=== PATIENT | female | born 1965 | race Caucasian/White ===

== ENCOUNTER 2016-12-02 02:11 | Emergency (ER) | payer OTHER ==
[~2016-12-02] VITALS: Ht 165.1 cm; Wt 101.6 kg
[~2016-12-02 02:11] MED LIST: CZR50 PO; ESCI10TA17 PO; HYDR25TA5 PO; LORA-741 PO; MULT-884 PO; POTA20TA13 PO; TPRSR/50 PO; VITACAP37 PO; VNTHFA/IN INH
[2016-12-02 02:12] VITALS: TEMP 37; Ht 165.1 cm; Wt 101.6 kg
[2016-12-02] MEDS ORDERED: ALBUT/IPRATROP 3MG/0.5MG NEB 3 ML VIAL INH STA (02:23)
[2016-12-02] MEDS ORDERED: DEXAMETHASONE SOD INJ 10 MG/ML VIAL PO ONE (02:30)
[2016-12-02] MEDS ORDERED: TAMO20TA5 PO (03:03)
[2016-12-02] MEDS ORDERED: HYDR-3419 PO (03:04)
[2016-12-02] MEDS ORDERED: SCPTP TD (03:06)
--- NOTE | 2016-12-02 03:09 | EMERGENCY ROOM VISIT NOTE ---
History First contact with patient: 02:19 Chief Complaint: RESPIRATORY PROBLEMS Stated Complaint: BREATHING PROBLEMS History of Present Illness The patient is a 51 year old female who presents to the Emergency Room with complaints of cough and wheezing for the past few days. Patient has asthma. She tried her inhaler with no relief of symptoms. Patient's never been hospitalized or intubated for her asthma. Patient denies chest pain, fever, chills, productive cough, recent illness. Patient denies abdominal pain, vomiting, diarrhea, leg pain or swelling. She does not smoke. No recent travel. No prior heart disease. Review of Systems See HPI for pertinent positives & negatives. A total of 10 systems reviewed and were otherwise negative. 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 Asthma, hypertension Family History Hypertension Social History Smoking Status: Former Smoker Drug Use: none Occupation Status: employed Current/Historical Medications Scheduled Escitalopram (Lexapro), 10 MG PO QAM Hydrochlorothiazide (Hydrochlorothiazide), 25 MG PO QAM Losartan Potassium (Losartan Potassium), 100 MG PO QAM Metoprolol Succinate (Metoprolol Succinate ER), 3 TAB PO QAM Multiple Vitamin (Multi Vitamin Daily), 1 TAB PO QAM Potassium Chloride Microencaps (Potassium Chloride Er), 20 MEQ PO TID Tamoxifen Citrate (Nolvadex), 20 MG PO DAILY Vitamin E (E-400), 100 UNITS PO QAM Scheduled PRN Albuterol Hfa (Ventolin Hfa), 2-4 PUFFS INH Q6H PRN for SOB/Wheezing Hydrocodon/Acetaminophen 5MG/300MG (Vicodin (5MG/300MG)), 1 TAB PO Q4H PRN for Pain Lorazepam (Ativan), 0.5 MG PO DAILY PRN for Anxiety Allergies Coded Allergies: ENMANUEL Inhibitors (Verified Adverse Reaction, Unknown, COUGH, 11/08/16) Physical Exam Vital Signs Date Time Temp Pulse Resp B/P Pulse Ox O2 Delivery O2 Flow Rate FiO2 12/02/16 02:12 37.0 84 18 169/119 98 Room Air Physical Exam PHYSICAL EXAM: Vital Signs: Reviewed Nurse's notes. Hypertensive Oxygen saturation was 98% on room air. GENERAL: Pleasant female with audible wheeze, Alert, oriented and coherent. The patient is able to speak in complete sentences. NECK: Supple, non-tender. CHEST: Symmetrical expansion. no retractions no accessory muscle use. HEART: Regular rate and normal heart sounds, no murmur, gallop or rub. LUNGS: Breath sounds equal but significantly diminished in intensity on both sides. Bilateral wheezes heard but no rales or pleuritic rub. SKIN: The skin was without rashes, erythema, edema, or bruising. There is no tenting of the skin. Capillary reflex less than 2 seconds. HEAD: Normocephalic atraumatic. EARS: External auditory canals clear, tympanic membranes pearly barrios without erythema or effusion bilaterally. EYES: Pupils equal round and reactive to light and accommodation. Conjunctivae without injection, sclerae without icterus. Extraocular movements intact. NOSE: Patent, turbinates without inflammation or discharge. No sinus tenderness. MOUTH: Mucous membranes moist. Tonsils are not enlarged. Pharynx without erythema or exudate. Uvula midline. Airway patent. Tongue does not deviate. ABDOMEN: Positive bowel sounds x 4. Normal tympanic percussion. Soft, nontender, without masses or organomegaly. Gotti sign negative. No guarding or rebound tenderness. MUSCULOSKELETAL: No muscle atrophy, erythema, or edema noted. NEURO: Patient was alert and oriented to person place and time. Normal sensation to light and sharp touch. No focal neurological deficits. Medical Decision & Procedures Medications Administered Medications (Trade) Dose Ordered Sig/Samanta Route Start Time Stop Time Status Last Admin Dose Admin Albuterol/ Ipratropium (Duoneb) 3 ml NOW STAT INH 12/02/16 02:23 12/02/16 02:24 DC 12/02/16 02:30 3 ML Dexamethasone Sodium Phosphate (Decadron Inj) 10 mg NOW ONCE PO 12/02/16 02:30 12/02/16 02:31 DC 12/02/16 02:30 10 MG ED Course Prior records/ancillary studies reviewed. Triage Nursing notes reviewed. The patient's history was concerning for respiratory difficulties. Differential diagnosis: Etiologies such as infections, reactive airway disease, pneumonia, pneumothorax , COPD, CHF, cardiac ischemia, pulmonary embolism, musculoskeletal, gastrointestinal, as well as others were entertained. Physical examination: As above. ER treatment provided: Nebulizer, Decadron On reassessment the patient felt better. Diagnostic interpretation by me: Deferred This appears to be consistent with asthma exacerbation. Patient felt much better after being medicated as above. She was not retracting. Stable vital signs. Patient was afebrile and nontoxic. Patient was advised to use her inhaler and take steroids as directed. She is advised follow-up family care in a few days or here in the ER sooner for difficulty breathing, chest pain, worsening signs or symptoms or as needed. Patient has a long-standing history of asthma and symptoms of similar. By the evaluation outlined above emergent etiologies such as CHF, cardiac ischemia, pulmonary embolism, pneumonia, pneumothorax, musculoskeletal, serious bacterial infections, as well as others were deemed relatively unlikely. The pt informed about the findings as listed above. All questions were answered and pleased with the treatment. Return instructions were outlined and the patient was discharged in stable condition. Outpatient prescription management: Prednisone Referral: The patient was referred back to their primary care physician for follow-up in 2 to 3 days for a recheck of the current condition. Medical Decision As above Impression Primary Impression: Acute asthma exacerbation Departure Information Dispostion Home / Self-Care Condition GOOD Referrals Jorge Alberto Bhardwaj M.D. (PCP) Patient Instructions My [facility] Additional Instructions Albuterol Inhaler: Take 2 puffs four times daily for five days, then as needed. Prednisone 50mg: Once daily until the prescription is finished. It is best to take this earlier in the day as some patients note occasional difficulty falling asleep when taken in the late evening. Acetaminophen(Tylenol) may be used for fever or pain. Use 1000mg every six hours as needed. Avoid using more than 3000mg in a 24 hour period. (AND/OR) Ibuprofen(Motrin, Advil) may be used for fever or pain. Use 600mg every six hours as needed. Take with food. Avoid using more than 2400mg in a 24 hour period. Do not use 2400mg per day for more than three consecutive days without physician direction. Prolonged inappropriate use can lead to stomach upset or ulcers. Rest and drink plenty of fluids. Avoid smoke/smoking, fumes, dust, or any triggers in the past that may have affected your breathing. Continue current medications. Return to the ER for chest pain, difficulty breathing, fevers, vomiting, worsening of your condition, or as needed. Follow up with your primary physician this week for a recheck of your current condition. Problem Qualifiers Primary Impression: Acute asthma exacerbation Asthma severity: unspecified severity Qualified Codes: J45.901 - Unspecified asthma with (acute) exacerbation
[2016-12-02] MEDS ORDERED: PRED50TA PO (03:18)
[2016-12-02 03:37] VITALS: BP 163/109; PULSE 84; O2SAT 97
[2016-12-07] MEDS ORDERED: LVQ750 PO (07:49)
[2016-12-07] MEDS ORDERED: SYMIN160 INH (07:49)
[2016-12-07] MEDS ORDERED: PRT40 PO (07:49)
[2016-12-07] MEDS ORDERED: PRD50 PO (07:49)
[2016-12-07] MEDS ORDERED: MONT1TAB3 PO (08:37)
[2016-12-07] MEDS ORDERED: PRED10TA PO (08:37)
[2016-12-07] MEDS ORDERED: FEXO1TAB49 PO (13:32)
[2017-05-10] MEDS ORDERED: SYMIN160 INH (09:47)
[2017-05-10] MEDS ORDERED: VITA400C3 PO (09:47)
== END 2016-12-02 03:40 | disposition home or self-care (01) ==
LOC: C.EDB 02:12
DX: J45.901 Unspecified asthma with (acute) exacerbation (principal); Z85.3 Personal history of malignant neoplasm of breast; I10 Essential (primary) hypertension; Z79.899 Other long term (current) drug therapy; Z87.891 Personal history of nicotine dependence

== ENCOUNTER 2016-12-05 02:15 | Observation (INO) | payer OTHER ==
[2016-12-05] VITALS (7 sets, daily range): BP systolic 123–161; BP diastolic 76–98; PULSE 72–91; TEMP 36.5–37; O2SAT 94–97; Ht 165.1 cm; Wt 101.6 kg
[~2016-12-05] VITALS: Ht 165.1 cm; Wt 101.6 kg
[~2016-12-05 02:15] MED LIST changes: +PRED50TA PO; +TAMO20TA5 PO
[2016-12-05 02:50] LABS: BASO % 0.2 %; BASO ABS # 0.01 K/uL (0-0.2); COMPLETE YES; HEMATOCRIT 37.4 % (37-47); IG% 0.3 %; LYMPH % 12.2 %; LYMPH ABS # 0.75 K/uL (1.2-3.4); MEAN CELL VOLUME 89.3 fL (80-100); MEAN CORPUSCULAR HGB CONC 34.8 g/dl (32-36); MEAN PLATELET VOLUME 10.2 fL (7.4-10.4); NEUT % 85.3 %; PLATELET COUNT 261 K/uL (130-400); RED BLOOD COUNT 4.19 M/uL (4.2-5.4); WHITE BLOOD COUNT 6.15 K/uL (4.8-10.8)
[2016-12-05] MEDS ORDERED: ALBUT/IPRATROP 3MG/0.5MG NEB 3 ML VIAL INH STA ×3 (02:50→04:34)
[2016-12-05] MEDS ORDERED: LOSA1TAB38 PO (03:00)
[2016-12-05] MEDS ORDERED: PRED50TA PO (03:02)
[2016-12-05 03:17] LABS: ALT/SGPT 32 U/L (12-78); AST/SGOT 18 U/L (15-37); BLOOD UREA NITROGEN 13 mg/dl (7-18); BUN/CREATININE RATIO 14.9 (10-20); CARBON DIOXIDE 22 mmol/L (21-32); CHLORIDE 104 mmol/L (98-107); CREATININE 0.89 mg/dl (0.60-1.20); GLUCOSE 125 mg/dl (70-99); POTASSIUM 2.8 mmol/L (3.5-5.1); SODIUM 140 mmol/L (136-145)
[2016-12-05 03:22] LABS: ALKALINE PHOSPHATASE 54 U/L (45-117)
[2016-12-05] MEDS ORDERED: POTASSIUM CHLORIDE 10 MEQ / 100ML WTR IV STA (03:24)
[2016-12-05] MEDS ORDERED: SODIUM CHLORIDE 0.9% 1000ML 1,000 ML IV STA (03:24)
[2016-12-05] MEDS ORDERED: POTASSIUM CHLORIDE 10 MEQ TABCR PO STA (03:24)
[2016-12-05] MEDS ORDERED: SODIUM CHLORIDE 0.9% 500ML 500 ML IV STA (03:24)
[2016-12-05] MEDS ORDERED: METHYLPREDNISOLONE 125 MG VIAL IV STA (03:35)
[2016-12-05] MEDS ORDERED: OPTIRAY 320 IV PRN (03:45)
[2016-12-05 03:46] LABS: MAGNESIUM 1.9 mg/dl (1.8-2.4)
[2016-12-05] MEDS ORDERED: MAGNESIUM SULFATE 1GM / D5W 1 GM BAG IV STA (04:34)
--- NOTE | 2016-12-05 05:10 | EMERGENCY ROOM VISIT NOTE ---
History First contact with patient: 02:23 Chief Complaint: RESPIRATORY PROBLEMS Stated Complaint: BREATHING History of Present Illness The patient is a 51 year old female who presents to the Emergency Room with complaints of cough and short of breath for the past 3 days that was seen a few days ago by myself for her asthma. Patient states she is not getting better and is actually getting worse. She's been taking the medications as directed. Patient denies fever, productive cough, chest pain, abdominal pain, leg pain or swelling. She does not smoke. Review of Systems See HPI for pertinent positives & negatives. A total of 10 systems reviewed and were otherwise negative. 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 Asthma, hypertension Family History Hypertension Social History Smoking Status: Never Smoker Drug Use: none Occupation Status: employed Current/Historical Medications Scheduled Escitalopram (Lexapro), 10 MG PO QAM Hydrochlorothiazide (Hydrochlorothiazide), 25 MG PO QAM Losartan Potassium (Cozaar), 100 MG PO DAILY Metoprolol Succinate (Metoprolol Succinate ER), 3 TAB PO QAM Multiple Vitamin (Multi Vitamin Daily), 1 TAB PO QAM Potassium Chloride Microencaps (Potassium Chloride Er), 20 MEQ PO TID Prednisone (Prednisone), 50 MG PO DAILY Tamoxifen Citrate (Nolvadex), 20 MG PO DAILY Vitamin E (E-400), 100 UNITS PO QAM Scheduled PRN Albuterol Hfa (Ventolin Hfa), 2-4 PUFFS INH Q6H PRN for SOB/Wheezing Lorazepam (Ativan), 0.5 MG PO DAILY PRN for Anxiety Allergies Coded Allergies: ENMANUEL Inhibitors (Verified Adverse Reaction, Unknown, COUGH, 12/05/16) Physical Exam Vital Signs Date Time Temp Pulse Resp B/P Pulse Ox O2 Delivery O2 Flow Rate FiO2 12/05/16 04:37 99 24 171/108 95 12/05/16 04:35 94 Room Air 12/05/16 04:00 78 23 159/103 100 Room Air 12/05/16 02:40 87 12/05/16 02:38 Room Air 12/05/16 02:38 Room Air 12/05/16 02:21 98 Room Air 12/05/16 02:17 37.0 86 25 174/114 98 Room Air Physical Exam PHYSICAL EXAM: Vital Signs: Reviewed Nurse's notes. Oxygen saturation was 96% on room air. GENERAL: Pleasant female with audible wheeze, Alert, oriented and coherent. The patient is not able to speak in complete sentences. NECK: Supple , non-tender. CHEST: Symmetrical expansion. + retractions no accessory muscle use. HEART: Regular rate and normal heart sounds, no murmur, gallop or rub. LUNGS: Breath sounds equal but significantly diminished in intensity on both sides. Bilateral wheezes heard but no rales or pleuritic rub. SKIN: The skin was without rashes, erythema, edema, or bruising. There is no tenting of the skin. Capillary reflex less than 2 seconds. HEAD: Normocephalic atraumatic. EARS: External auditory canals clear, tympanic membranes pearly barrios without erythema or effusion bilaterally. EYES: Pupils equal round and reactive to light and accommodation. Conjunctivae without injection, sclerae without icterus. Extraocular movements intact. NOSE: Patent, turbinates without inflammation or discharge. No sinus tenderness. MOUTH: Mucous membranes moist. Tonsils are not enlarged. Pharynx without erythema or exudate. Uvula midline. Airway patent. Tongue does not deviate. ABDOMEN: Positive bowel sounds x 4. Normal tympanic percussion. Soft, nontender, without masses or organomegaly. Gotti sign negative. No guarding or rebound tenderness. MUSCULOSKELETAL: No muscle atrophy, erythema, or edema noted. NEURO: Patient was alert and oriented to person place and time. Normal sensation to light and sharp touch. No focal neurological deficits. Medical Decision & Procedures Laboratory Results 12/05/16 02:40 Red Blood Count 4.19, Mean Corpuscular Volume 89.3, Mean Corpuscular Hemoglobin 31.0, Mean Corpuscular Hemoglobin Concent 34.8, Mean Platelet Volume 10.2, Neutrophils (%) (Auto) 85.3, Lymphocytes (%) (Auto) 12.2, Monocytes (%) (Auto) 2.0, Eosinophils (%) (Auto) 0.0, Basophils (%) (Auto) 0.2, Neutrophils # (Auto) 5.25, Lymphocytes # (Auto) 0.75, Monocytes # (Auto) 0.12, Eosinophils # (Auto) 0.00, Basophils # (Auto) 0.01 12/05/16 02:40 Test 12/05/16 02:40 White Blood Count 6.15 K/uL (4.8-10.8) Red Blood Count 4.19 M/uL (4.2-5.4) Hemoglobin 13.0 g/dL (12.0-16.0) Hematocrit 37.4 % (37-47) Mean Corpuscular Volume 89.3 fL (80-100) Mean Corpuscular Hemoglobin 31.0 pg (25-34) Mean Corpuscular Hemoglobin Concent 34.8 g/dl (32-36) Platelet Count 261 K/uL (130-400) Mean Platelet Volume 10.2 fL (7.4-10.4) Neutrophils (%) (Auto) 85.3 % Lymphocytes (%) (Auto) 12.2 % Monocytes (%) (Auto) 2.0 % Eosinophils (%) (Auto) 0.0 % Basophils (%) (Auto) 0.2 % Neutrophils # (Auto) 5.25 K/uL (1.4-6.5) Lymphocytes # (Auto) 0.75 K/uL (1.2-3.4) Monocytes # (Auto) 0.12 K/uL (0.11-0.59) Eosinophils # (Auto) 0.00 K/uL (0-0.5) Basophils # (Auto) 0.01 K/uL (0-0.2) RDW Standard Deviation 46.5 fL (36.4-46.3) RDW Coefficient of Variation 14.1 % (11.5-14.5) Immature Granulocyte % (Auto) 0.3 % Immature Granulocyte # (Auto) 0.02 K/uL (0.00-0.02) D-Dimer 470 ug/L FEU (0-500) Anion Gap 14.0 mmol/L (3-11) Est Creatinine Clear Calc Drug Dose 87.4 ml/min Estimated GFR () 86.4 Estimated GFR (Non- 74.5 BUN/Creatinine Ratio 14.9 (10-20) Calcium Level 9.0 mg/dl (8.5-10.1) Magnesium Level 1.9 mg/dl (1.8-2.4) Total Bilirubin 0.2 mg/dl (0.2-1) Direct Bilirubin < 0.1 mg/dl (0-0.2) Aspartate Amino Transf (AST/SGOT) 18 U/L (15-37) Alanine Aminotransferase (ALT/SGPT) 32 U/L (12-78) Alkaline Phosphatase 54 U/L (45-117) Troponin I < 0.015 ng/ml (0-0.045) Total Protein 7.5 gm/dl (6.4-8.2) Albumin 3.9 gm/dl (3.4-5.0) Medications Administered Medications (Trade) Dose Ordered Sig/Samanta Route Start Time Stop Time Status Last Admin Dose Admin Albuterol/ Ipratropium (Duoneb) 3 ml NOW STAT INH 12/05/16 02:50 12/05/16 02:51 DC 12/05/16 02:50 3 ML Potassium Chloride 40 meq 40 meq NOW STAT PO 12/05/16 03:24 12/05/16 03:26 DC 12/05/16 03:51 40 MEQ Sodium Chloride (Nss 1000ml) 1,000 ml @ 125 mls/hr Q8H STAT IV 12/05/16 03:24 12/05/16 11:23 12/05/16 03:52 125 MLS/HR Potassium Chloride 10 meq 10 meq NOW STAT IV 12/05/16 03:24 12/05/16 03:26 DC 12/05/16 03:51 10 MEQ Sodium Chloride (Nss 500ml) 500 ml @ 999 mls/hr Q31M STAT IV 12/05/16 03:24 12/05/16 03:54 DC 12/05/16 03:52 999 MLS/HR Methylprednisolone Sodium Succinate (Solu-Medrol IV) 125 mg NOW STAT IV 12/05/16 03:35 12/05/16 03:36 DC 12/05/16 03:51 125 MG Albuterol/ Ipratropium (Duoneb) 3 ml NOW STAT INH 12/05/16 03:35 12/05/16 03:36 DC 12/05/16 03:52 3 ML Albuterol/ Ipratropium (Duoneb) 3 ml NOW STAT INH 12/05/16 04:34 12/05/16 04:35 DC 12/05/16 04:45 3 ML Magnesium Sulfate (Magnesium Sulfate) 1 gm NOW STAT IV 12/05/16 04:34 12/05/16 04:35 DC 12/05/16 04:45 1 GM ED Course Prior records/ancillary studies reviewed. Triage Nursing notes reviewed. The patient's history was concerning for respiratory difficulties. Differential diagnosis: Etiologies such as infections, reactive airway disease, pneumonia, pneumothorax , COPD, CHF, cardiac ischemia, pulmonary embolism, musculoskeletal, gastrointestinal, as well as others were entertained. Physical examination: As above. ER treatment provided: Nebulizer, steroids, potassium On reassessment the patient felt better. Diagnostic interpretation by me: The electrocardiogram was negative for acute ischemic or pathologic change. Normal sinus, normal intervals, no acute ST-T wave changes. Impression normal sinus rhythm interpreted by myself The labs revealed negative troponin. No leukocytosis Imaging studies: Chest x-ray with no acute consolidation, pneumothorax or free air per my interpretation CTA CHEST: No definite filling defect to suggest PE. No acute aortic abnormality. No consolidation to suggest pneumonia. 3 mm nodule in the right middle lobe (series 2, image 57). May be due to prior infection/prior inflammation. Followup in 12 months to ensure resolution/stability. Mild right lower lobe atelectasis/scarring. Radiologist: Agapito Youssef M.D. Study ready at 03:52 and initial results transmitted Consultation: A consultation was placed with Dr. Garcia, hospitalist. The case was discussed and diagnostics were reviewed. The patient was evaluated in the ER for further treatment. This appears to be consistent with status asthmaticus. Patient was quite short of breath. She is given 3 nebulizers, steroids and magnesium. Negative CTA. She will be evaluated by medicine for possible admission. Patient was unable to walk without being externally short of breath. By the evaluation outlined above emergent etiologies such as CHF, cardiac ischemia, pulmonary embolism, pneumonia, pneumothorax, musculoskeletal, serious bacterial infections, as well as others were deemed relatively unlikely. The pt informed about the findings as listed above. All questions were answered and pleased with the treatment. Case reviewed by attending Medical Decision As above Impression Primary Impression: Status asthmaticus Departure Information Dispostion Being Evaluated By Hospitalist Condition FAIR Referrals Jorge Alberto Bhardwaj M.D. (PCP) Patient Instructions My [facility]
--- NOTE | 2016-12-05 05:11 | History and Physical ---
History & Physical Date & Time of Service: Dec 05, 2016 at 05:11 Chief Complaint: Breathing Primary Care Physician: Jorge Alberto Bhardwaj M.D. History of Present Illness Source: patient This is a 51 yo f with seasonal asthma that is presenting to us with worsening SOB. She was seen approx 2 days prior for SOB in the ED. She was given a nebulizer treatment and prednisone 50 mg at d/c. She states that she did have some improvement but only minimal with this. Last night she was working outside and had acute worsening of her shortness of breath so she decided to return to the ED. She was given Methylprednisolone 125 mg IV and duoneb. She arrive with an O2 sat of 95% and maintained this. After her treatments she had undergone an ambulation trail and failed because of SOB however she did maintain her O2 sat. During the interview she was SOB. She states that she typically gets these "attack" 1-2 times per year. She has an albuterol inhaler but does not need to use it during the week or at night. She is unsure of her last PFT. Past Medical/Surgical History Seasonal Asthma Breast cancer 2 knee arthroplasty HTN Family History Hypertension Social History Smoking Status: Never Smoker Smokeless Tobacco Use: No Alcohol Use: none Drug Use: none Marital Status: Housing status: lives with family Occupational Status: employed Immunizations History of Influenza Vaccine: No History of Tetanus Vaccine?: Unknown History of Pneumococcal: No History of Hepatitis B Vaccine: No Multi-Drug Resistant Organisms History of MDRO: No Allergies Coded Allergies: ENMANUEL Inhibitors (Verified Adverse Reaction, Unknown, COUGH, 12/05/16) Home Medications Scheduled Escitalopram (Lexapro), 10 MG PO QAM Hydrochlorothiazide (Hydrochlorothiazide), 25 MG PO QAM Losartan Potassium (Cozaar), 100 MG PO DAILY Metoprolol Succinate (Metoprolol Succinate ER), 3 TAB PO QAM Multiple Vitamin (Multi Vitamin Daily), 1 TAB PO QAM Potassium Chloride Microencaps (Potassium Chloride Er), 20 MEQ PO TID Prednisone (Prednisone), 50 MG PO DAILY Tamoxifen Citrate (Nolvadex), 20 MG PO DAILY Vitamin E (E-400), 100 UNITS PO QAM Scheduled PRN Albuterol Hfa (Ventolin Hfa), 2-4 PUFFS INH Q6H PRN for SOB/Wheezing Lorazepam (Ativan), 0.5 MG PO DAILY PRN for Anxiety Review of Systems Constitutional: No fever Eyes: No worsening of vision ENT: No hearing loss Respiratory: + dyspnea at rest, + dyspnea on exertion, + shortness of breath, + wheezing, No cough, No sputum Cardiovascular: No chest pain Abdomen: No constipation, No diarrhea, No nausea, No pain, No vomiting Musculoskeletal: No joint pain, No muscle pain Neurologic: No balance problems, No memory loss, No numbness/tingling, No weakness Psychiatric: No depression symptoms Endocrine: No fatigue Integumentary: No rash Physical Exam Vital Signs Date Time Temp Pulse Resp B/P Pulse Ox O2 Delivery O2 Flow Rate FiO2 12/05/16 04:37 99 24 171/108 95 12/05/16 04:35 94 Room Air 12/05/16 04:00 78 23 159/103 100 Room Air 12/05/16 02:40 87 12/05/16 02:38 Room Air 12/05/16 02:38 Room Air 12/05/16 02:21 98 Room Air 12/05/16 02:17 37.0 86 25 174/114 98 Room Air General Appearance: WD/WN, + mild distress Head: normocephalic, atraumatic Eyes: normal inspection ENT: normal ENT inspection Neck: supple Respiratory/Chest: lungs clear, normal breath sounds, no accessory muscle use Cardiovascular: regular rate, rhythm, no murmur Abdomen/GI: normal bowel sounds, non tender, soft Back: normal inspection Extremities/Musculoskelatal: normal inspection, no calf tenderness, no pedal edema Neurologic/Psych: no motor/sensory deficits, alert, normal mood/affect, oriented x 3 Skin: normal color, warm/dry, no rash Lymphatic: no adenopathy Diagnostics Laboratory Results Results Past 24 Hours Test 12/05/16 02:40 Range/Units White Blood Count 6.15 4.8-10.8 K/uL Red Blood Count 4.19 4.2-5.4 M/uL Hemoglobin 13.0 12.0-16.0 g/dL Hematocrit 37.4 37-47 % Mean Corpuscular Volume 89.3 80-100 fL Mean Corpuscular Hemoglobin 31.0 25-34 pg Mean Corpuscular Hemoglobin Concent 34.8 32-36 g/dl Platelet Count 261 130-400 K/uL Mean Platelet Volume 10.2 7.4-10.4 fL Neutrophils (%) (Auto) 85.3 % Lymphocytes (%) (Auto) 12.2 % Monocytes (%) (Auto) 2.0 % Eosinophils (%) (Auto) 0.0 % Basophils (%) (Auto) 0.2 % Neutrophils # (Auto) 5.25 1.4-6.5 K/uL Lymphocytes # (Auto) 0.75 1.2-3.4 K/uL Monocytes # (Auto) 0.12 0.11-0.59 K/uL Eosinophils # (Auto) 0.00 0-0.5 K/uL Basophils # (Auto) 0.01 0-0.2 K/uL RDW Standard Deviation 46.5 36.4-46.3 fL RDW Coefficient of Variation 14.1 11.5-14.5 % Immature Granulocyte % (Auto) 0.3 % Immature Granulocyte # (Auto) 0.02 0.00-0.02 K/uL D-Dimer 470 0-500 ug/L FEU Sodium Level 140 136-145 mmol/L Potassium Level 2.8 3.5-5.1 mmol/L Chloride Level 104 98-107 mmol/L Carbon Dioxide Level 22 21-32 mmol/L Anion Gap 14.0 3-11 mmol/L Blood Urea Nitrogen 13 7-18 mg/dl Creatinine 0.89 0.60-1.20 mg/dl Est Creatinine Clear Calc Drug Dose 87.4 ml/min Estimated GFR () 86.4 Estimated GFR (Non- 74.5 BUN/Creatinine Ratio 14.9 10-20 Random Glucose 125 70-99 mg/dl Calcium Level 9.0 8.5-10.1 mg/dl Magnesium Level 1.9 1.8-2.4 mg/dl Total Bilirubin 0.2 0.2-1 mg/dl Direct Bilirubin < 0.1 0-0.2 mg/dl Aspartate Amino Transf (AST/SGOT) 18 15-37 U/L Alanine Aminotransferase (ALT/SGPT) 32 12-78 U/L Alkaline Phosphatase 54 45-117 U/L Troponin I < 0.015 0-0.045 ng/ml Total Protein 7.5 6.4-8.2 gm/dl Albumin 3.9 3.4-5.0 gm/dl Diagnostic Radiology CTA - no definite filling defect to suggest PE no acute aortic abnormality no consolidation to suggest pna 3 mm nodule in right middle lobe, possibly secondary to previous infection, recommend 12 m repeat Impression Assessment and Plan this is a 51 yo f that is presenting to us with SOB with a history of seasonal asthma SOB possibly secondary to acute on chronic asthma exacerbation vs anxiety - duoneb and pulmicort - prednisone 50 mg cont, begin slow taper tomorrow - consult pulm - RAST testing - PFT in outpt Hypokalemia - repleted in ED - repeat tomorrow - continue supplementing - HCTZ held Nodule on CTA - repeat in 12 m in outpt HTN - cont Metoprolol and losartan H/O breast ca - cont tamoxifen Hot flashes - cont lexapro DVT prophylaxis - lovenox FULL CODE Level of Care Med/Surg Resuscitation Status FULL RESUSCITATION VTE Prophylaxis Risk Level: Moderate Given or contraindicated: Enoxaparin (Lovenox)SQ Social Service Consult None Apply Note Total Time: Critical Care 30 - 74 minutes Additional Copies To Jorge Alberto Bhardwaj M.D. Assessment and Plan Attending Addendum: I have physically seen and examined this patient, have directed their medical care, have supervised the medical residents activities, and agree with the H&P as noted above, with the following changes: NONE The patient is a 51-year-old female, seen in the emergency department on December 02 for shortness of breath and was diagnosed with acute asthma exacerbation at that time and was discharged on prednisone 50 mg daily. Since that time her symptoms have actually worsened somewhat, including the development of a more harsh cough, and at work early this morning she came even more short of breath, and presented back to emergency department for assessment and was referred for evaluation for admission. In the emergency department tonight she received nebulizers, IV Solu-Medrol 125 mg, IV magnesium without significant improvement. As she was attempted to be ambulated while in ED she became lightheaded and dizzy and felt like she was going to pass out. The patient denies chest pain, palpitations, lower extremity swelling, vision change, hearing change, fevers, chills, sweats, weight change, nausea, vomiting, abdominal pain, pelvic pain, blood in urine or stool, dysuria, urinary frequency or urgency, headache, memory loss, rash, abnormal bruising or bleeding, imbalance, focal or generalized weakness, numbness or tingling in arms or legs, arthralgias or myalgias, back or neck pain, night sweats, or allergy symptoms. The review of systems is otherwise negative other than for that already noted above, and at least 10 systems have been reviewed. The patient is awake, well-developed and adequately nourished, alert and oriented 3, normocephalic and atraumatic, lying in bed and in no acute distress. HEENT--PERRL, EOMI, mucous membranes and oropharynx dry. Neck--supple, no JVD or bruits, thyroid normal, trachea midline, no adenopathy. Heart--normal S1 and S2, no extra beats, no murmurs, rubs or gallops. Lungs--clear bilaterally with good air movement, no respiratory distress, no accessory muscle use. Abdomen--normal bowel sounds and soft, nontender and nondistended, no hernias or masses, no organomegaly. Extremities--no cyanosis, clubbing or edema. There are good distal pulses b/l. Dermatologic--normal skin turgor, normal color, warm and dry, no abnormal lymph nodes, no rash. Neurologic--cranial nerves II through XII grossly intact, motor and sensory examination normal. Rheumatologic--normal range of motion, nontender, muscles and joints. Psychiatric-- appears anxious. Assessment and Plan: Acute Shortness of Breath, with differential including acute asthma exacerbation and discordant vocal cord syndrome--the patient was admitted, and will be placed on IV steroids, nebulizer treatments and will consult pulmonology for possible laryngoscopy. I've also added RAST testing for zone 3 allergens and basic food profile. We'll also place her on antihistamines as well. Hypokalemia/hypertension--hold HCTZ as a likely cause of low potassium, and replace oral with oral supplementation. Her low potassium may also be contributing to some issues with breathing.
[2016-12-05] MEDS ORDERED: ONDANSETRON INJ 2 MG/ML 2 ML VIAL IV PRN (05:15)
[2016-12-05] MEDS ORDERED: ACETAMINOPHEN 325 MG TAB PO PRN (05:15)
[2016-12-05] MEDS ORDERED: LORAZEPAM 0.5 MG TAB PO PRN (05:30)
[2016-12-05] MEDS ORDERED: ALBUTEROL HFA 8 GM INHALER INH PRN (05:30)
[2016-12-05] MEDS ORDERED: IV FLUIDS COMPLETED PRN (06:45)
[2016-12-05] MEDS ORDERED: AZITHROMYCIN IV 500 MG in DEXTROSE 5% 250ML 250 ML IV STA (06:49)
[2016-12-05] MEDS ORDERED: POTASSIUM CITRATE 10 MEQ TAB PO STA (06:52)
[2016-12-05] MEDS ORDERED: PNEUMOCOCCAL POLYSACCHARIDES 25 MCG/0.5 ML VIAL/SYR IM. ONE (07:00)
[2016-12-05] MEDS ORDERED: PNEUMOCOCCAL ADMINISTRATION CHARGE ONE (07:00)
[2016-12-05 07:37] LABS: INR 0.9 (0.9-1.1)
--- NOTE | 2016-12-05 07:41 | DIAGNOSTIC IMAGING REPORT ---
CHEST ONE VIEW PORTABLE CLINICAL HISTORY: Chest pain. Asthma. COMPARISON STUDY: Chest radiograph July 09, 2014. FINDINGS: Lung volumes are normal. There is no pneumothorax or pleural effusion. Cardiac size is at the upper limits of normal. There is no evidence of pulmonary edema. There is minimal right lower lung opacity. IMPRESSION: Minimal right lower lung opacity. Atelectasis is favored although mild consolidation could appear similar. Electronically signed by: Juan Edgar M.D. 12/05/2016 7:40 AM Dictated Date/Time: 12/05/2016 7:38 AM
[2016-12-05] MEDS: BUDESONIDE 0.5 MG/2 ML VIAL (PULMICORT) INH SCH ×2 (08:00→20:04)
--- NOTE | 2016-12-05 08:06 | DIAGNOSTIC IMAGING REPORT ---
CT ANGIOGRAM OF THE CHEST CLINICAL HISTORY: Atypical chest pain. Dyspnea. COMPARISON STUDY: Chest x-ray dated 12/05/16. TECHNIQUE: Following the IV administration of 93 cc of Optiray 320, CT angiogram of the chest was performed from the upper abdomen to the thoracic inlet utilizing the pulmonary embolus protocol. Images are reviewed in the axial, sagittal, and coronal planes. 3-D MIPS images are created and assessed. IV contrast was administered without complication. The examination is degraded by streak artifact from the left arm which could not be elevated above the chest. CT DOSE: 634.14 mGy.cm FINDINGS: Thyroid: Imaged portions of the thyroid gland are normal in size and attenuation. Thoracic aorta: The thoracic aorta is normal in caliber and demonstrates standard 3-vessel arch anatomy. No dissection is seen. Pulmonary vasculature: The pulmonary trunk is normal in caliber. There are no filling defects identified in main, lobar, or segmental pulmonary branches to suggest pulmonary embolus. Heart: The heart is mildly enlarged and there is trace pericardial effusion. There are scattered coronary artery calcifications. Lungs and pleural spaces: There is a trace right pleural effusion with mild patchy airspace consolidation in the right lower lobe. Minimal patchy opacities are also seen in the right middle lobe. The right upper lung and the left lung appear clear. There is no left-sided pleural effusion. Mediastinum: There is no mediastinal lymphadenopathy. Michelle: Clear. Axillae: There is no axillary lymphadenopathy. Upper abdomen: Partially visualized upper abdominal viscera is within normal limits. Skeletal structures: Degenerative change is present throughout the thoracic spine. There is mild scoliosis. No lytic or blastic bony lesions are seen. Soft tissues: There are postoperative changes from left-sided mastectomy with left breast implant. IMPRESSION: 1. There is no evidence of pulmonary embolus in the main, lobar, or segmental pulmonary arteries. 2. There is a trace right pleural effusion with mild patchy airspace consolidation at the right lung base. The appearance is typical for an infectious or inflammatory pneumonitis. Clinical correlation will be required. 3. Mild cardiomegaly with trace pericardial effusion. 4. Additional changes as above. Electronically signed by: Deacon Terrazas M.D. 12/05/2016 8:05 AM Dictated Date/Time: 12/05/2016 7:59 AM
[2016-12-05] MEDS: ENOXAPARIN 40 MG/0.4 ML SYR SQ SCH (08:54)
[2016-12-05] MEDS: LOSARTAN POTASSIUM 50 MG TAB PO SCH (08:55)
[2016-12-05] MEDS: METOPROLOL SUCC 50MG EXT REL TAB PO SCH (08:56)
[2016-12-05] MEDS: MULTIVITAMIN TAB PO SCH (08:56)
[2016-12-05] MEDS: ESCITALOPRAM OXALATE 10 MG TAB PO SCH (08:56)
[2016-12-05] MEDS: POTASSIUM CHLORIDE 20 MEQ TABCR PO SCH ×3 (08:57→20:41)
[2016-12-05] MEDS: TAMOXIFEN CITRATE 10 MG TAB PO SCH (09:00)
[2016-12-05] MEDS ORDERED: HYDROCHLOROTHIAZIDE 25 MG TAB PO SCH (09:00)
--- NOTE | 2016-12-05 09:31 | PULMONARY CONSULTATION ---
DATE OF CONSULTATION: 12/05/2016 DATE OF CONSULTATION: 12/05/2016. HISTORY OF PRESENT ILLNESS: The patient is a very pleasant 51-year-old female with a history of asthma for a number of years. It is generally under good control. She was admitted with exacerbation of bronchial asthma and Dr. Pantoja has asked me to evaluate the patient from a pulmonary standpoint this morning. Presently she is quite comfortable. She was seen in the Emergency Room on the on Sunday with exacerbation of asthma with wheezing, cough, mild shortness of breath. At that time hemodynamically he was stable with elevated blood pressure 163/109 and it was 3:00 in the morning. She was treated with albuterol, dexamethasone and sent home but continued to have worsening shortness of breath and eventually represented to the Emergency Room, seen by Sabina Gong PA-C this morning at 5:00. She had a cough and shortness of breath for 3 days. The cough was generally nonproductive, although occasionally produce some thick yellow sputum. She denies aspiration, rhinosinusitis or any significant exposures. 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 In the Emergency Room, hemodynamically she was stable. Oxygen saturation 98% on room air. Blood pressure 174/114 initially. She had some wheezing when ambulating in the Emergency Room. White count looked good. Potassium was down at 2.8. CT scan of the chest suggested an infiltrative process at the right base. Now this morning at 0815 hours she is considerably improved. She looked comfortable with respiratory rate 16. Travel history and environmental histories have been unremarkable. REVIEW OF SYSTEMS: Otherwise normal. PAST MEDICAL HISTORY: Positive for usual childhood diseases, measles, mumps and chickenpox. 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 According to Dr. Minaya's note, she had a lumpectomy scheduled back in 2014 and that was of the left breast. She carries a history of hypertension, degenerative joint disease of the knees with total knee arthroplasty bilaterally, some obesity. FAMILY HISTORY: Sister had breast cancer. Parents alive in good health. Dad has hypertension. SOCIAL HISTORY: She states she has never been a tobacco or alcohol user. 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 She is and her accompanies her today. They have 1 son. ALLERGIES: ENMANUEL INHIBITORS WHICH CAUSED COUGH. MEDICATIONS: Are noted. She has a history of mild depression as well. She is on metoprolol 3 tabs every morning and that is for hypertension. When I reviewed her records she did have some chest pain, hypertension. She was admitted here in June of 2014. Chest x-ray was unremarkable at that time and echocardiogram revealed normal left ventricular and right ventricular function with no evidence of pulmonary hypertension, borderline left atrial enlargement. She carries a history of hypokalemia in the past as well. I cannot find any other history at this point. MEDICATIONS: Are noted. She rarely takes any inhalers except she using in the springtime or if she has an exacerbation of bronchial asthma. She has never been hospitalized for asthma. PHYSICAL EXAMINATION: VITAL SIGNS: Blood pressure 148/76, pulse 70 and regular, respiratory rate 16. She is afebrile, oxygen saturation 94% on room air. Weight 101.6 kilograms. HEAD, EYES, EARS, NOSE, AND THROAT: Unremarkable. Septum is midline. No thrush is noted. No adenopathy is noted. Trachea midline. Thyroid normal. Carotid upstroke normal, no bruits auscultated. SKIN EXAMINATION: Unremarkable. HEART: Regular rate and rhythm. No murmurs are heard. LUNGS: I thought were clear this morning. Forced expiratory maneuver 2 seconds with no wheezing. No fremitus is noted. No evidence of any pneumonitis on exam. ABDOMEN: Soft, obese, nontender. EXTREMITIES: She has no cyanosis, clubbing or edema. Chest x-ray showed a right lower lobe opacity and CT scan suggesting pneumonitis in the right lower lobe and perhaps in the right middle lobe area. Right upper lobe and left lung are clear. Minimal trace pleural effusion at the right base is noted. No significant hilar or mediastinal adenopathy is noted. Postop changes left breast with left mastectomy noted with left breast implant. White count 6.15, hemoglobin 13, hematocrit 37.4%, platelet count 261,000 with no significant eosinophils. Potassium is down to 2.8, glucose 125. Liver function studies are normal. Troponin is unremarkable as is the coagulation profile. The electrocardiogram performed in the Emergency Room this morning shows a bit of baseline artifact with a normal sinus rhythm and is normal. IMPRESSION: 1. Bronchial asthma with exacerbation. This seems to be worse in the spring and in the fall. She did not have a precipitating abnormality such as exposures or respiratory infection that caused this. It may have been related to her being ill last week with a respiratory infection, now noted as an exacerbation of asthma. 2. Pneumonitis, right lower lobe and right middle lobe. This certainly could be the precipitating etiology for this exacerbation of bronchial asthma. This needs to be treated as community-acquired pneumonia. 3. Carcinoma left breast status post mastectomy. 4. Hypertension. RECOMMENDATIONS: 1. At this point, I would taper the prednisone 30 mg daily since she is doing well. Taper that down over about 5-7 days. 2. Consider stopping the Toprol as it is onboard just for hypertension. If she has an arrhythmia may need to be on board, but I think there are numerous other medications that could be used for hypertension and the beta garcia may be causing some bronchospasm. 3. Add Symbicort 2 puffs twice a day and discontinued the Pulmicort Respules. 4. Sandra 180 mg 1 at bedtime or Zyrtec 10 mg daily at night. Also, suggest to continue with Zithromax and add on Rocephin 1 gram daily to cover the right lower lobe pneumonia. Thanks for asking me to evaluate Ms. Whitmore and I will be glad to follow along during her hospital stay.
[2016-12-05] MEDS ORDERED: CEFTRIAXONE SOD INJ 1 GM in DEXTROSE 5% ADD-VANTAGE 50ML 50 ML IV SCH (10:00)
[2016-12-05] MEDS: ALBUT/IPRATROP 3MG/0.5MG NEB 3 ML VIAL INH SCH ×3 (11:52→20:04)
[2016-12-06] VITALS (8 sets, daily range): BP systolic 137–148; BP diastolic 87–93; PULSE 64–84; TEMP 36.6–36.9; O2SAT 95–98
[2016-12-06] MEDS: ALBUT/IPRATROP 3MG/0.5MG NEB 3 ML VIAL INH SCH ×5 (01:29→18:46)
--- NOTE | 2016-12-06 06:59 | PROGRESS NOTE ---
DATE: 12/06/2016 HISTORY OF PRESENT ILLNESS: The patient is comfortable this morning, sleeping on her left side. She continues to have cough, but wheezing is considerably improved. She denies any nausea, vomiting or aspiration upper airway symptoms. She states she feels considerably better than she has from admission. According to nurses' note, she slept fairly well last night. She is able to be out of bed independently yesterday walking in the hallway without dyspnea. MEDICATIONS: Noted. PHYSICAL EXAMINATION: VITAL SIGNS: Stable. Her blood pressure 123/84 and she is afebrile. Oxygen saturation 98%. Weight 101.6 kilograms. HEENT AND NECK: Unremarkable exam normal. Nose exam is normal. Posterior pharynx shows no thrush. No adenopathy is noted. Trachea midline with no evidence of upper airway obstruction. HEART: Regular rate and rhythm. No murmurs are heard. LUNGS: Clear today. ABDOMEN: Soft, nontender. She has no cyanosis, clubbing or edema. IMAGING DATA: CT scan suggested right lower lobe pneumonia at least pneumonitis. White count is pending for today. Repeat potassium is pending. Sputum Gram stain is pending. IMPRESSION: 1. Bronchial asthma with exacerbation. 2. Right lower lobe pneumonia. This is a community acquired. RECOMMENDATIONS: 1. Continue on her present medications. I think the prednisone could be tapered to 30 mg daily, now with a taper over about 7-10 days. 2. Continue to increase activity. Eventually, the patient probably can be sent home on Levaquin for a total of 7 days treatment for the infiltrate in the right lower lobe. Overall, she is stable. Again, I would consider stopping the Pulmicort Respules and placing her on Symbicort 160/4.5 two puffs b.i.d. with a mouth rinse.
[2016-12-06 08:02] LABS: MEAN CELL VOLUME 91.6 fL (80-100); MEAN CORPUSCULAR HEMOGLOBIN 30.7 pg (25-34); MEAN CORPUSCULAR HGB CONC 33.5 g/dl (32-36); MEAN PLATELET VOLUME 10.4 fL (7.4-10.4); PLATELET COUNT 257 K/uL (130-400); RED BLOOD COUNT 3.71 M/uL (4.2-5.4); WHITE BLOOD COUNT 9.18 K/uL (4.8-10.8)
[2016-12-06] MEDS: BUDESONIDE 0.5 MG/2 ML VIAL (PULMICORT) INH SCH ×2 (08:25→18:46)
[2016-12-06 08:35] LABS: BUN/CREATININE RATIO 19.4 (10-20); CALCIUM 8.6 mg/dl (8.5-10.1); CREATININE 0.72 mg/dl (0.60-1.20); POTASSIUM 3.5 mmol/L (3.5-5.1)
[2016-12-06] MEDS: LOSARTAN POTASSIUM 50 MG TAB PO SCH (08:40)
[2016-12-06] MEDS: ESCITALOPRAM OXALATE 10 MG TAB PO SCH (08:41)
[2016-12-06] MEDS: POTASSIUM CHLORIDE 20 MEQ TABCR PO SCH ×3 (08:41→20:45)
[2016-12-06] MEDS: MULTIVITAMIN TAB PO SCH (08:41)
[2016-12-06] MEDS: TAMOXIFEN CITRATE 10 MG TAB PO SCH (08:44)
[2016-12-06] MEDS: METOPROLOL SUCC 50MG EXT REL TAB PO SCH (08:45)
[2016-12-06] MEDS: ENOXAPARIN 40 MG/0.4 ML SYR SQ SCH (08:47)
[2016-12-06] MEDS ORDERED: PANTOprazole SOD 40 MG TAB PO STA (08:48)
--- NOTE | 2016-12-06 08:48 | Progress Note ---
Subjective Date of Service: Dec 06, 2016. Subjective Pt evaluation today including: conversation w/ patient, physical exam, chart review, lab review, review of studies, conversation w/ internal consultant, review of inpatient medication list Voiding: no voiding problems Still cough, nose congestion, mild shortness of breath when up to the restroom, sometimes wheezing, no chest pain Problem List Medical Problems: (1) Acute asthma exacerbation Status: Acute (2) Status asthmaticus Status: Acute Review of Systems Constitutional: No chills, No fatigue, No fever, No problem reported, No sweats , No weakness, No weight loss Eyes: No diplopia, No discharge, No eye pain, No redness, No worsening of vision ENT: No dental problems, No hearing loss, No nasal symptoms, No sore throat, No tinnitus, No trouble swallowing, No unusual epistaxis Respiratory: + cough, + see HPI, + shortness of breath, + wheezing, No dyspnea at rest, No dyspnea on exertion, No hemoptysis, No sputum Cardiac: No PND, No chest pain, No claudication, No edema, No orthopnea, No palpitations Abdomen: No constipation, No diarrhea, No nausea, No pain, No vomiting Musculoskeletal: No calf pain, No joint pain, No muscle pain, No swelling Female : No abnormal vaginal bleeding, No dysuria, No hematuria, No incontinence, No urinary frequency, No vaginal discharge Neurologic: No balance problems, No memory loss, No numbness/tingling, No paralysis, No vertigo, No weakness Psychiatric: No anhedonism, No anxiety, No depression symptoms, No insomnia, No substance abuse Heme: No abnormal bleeding/bruising, No clotting problems, No night sweats, No swollen lymph nodes Endo: No excessive thirst, No excessive urination, No fatigue Skin: No bleeding, No color change, No itch, No new/changing skin lesions, No rash Objective Vital Signs Date Time Temp Pulse Resp B/P Pulse Ox O2 Delivery O2 Flow Rate FiO2 12/06/16 08:10 Room Air 12/06/16 07:55 64 16 97 Room Air 12/06/16 07:29 36.6 84 16 148/93 97 Room Air 12/06/16 01:29 77 16 98 Room Air 12/05/16 23:43 Room Air 12/05/16 23:31 37.0 91 16 123/84 94 Room Air 12/05/16 20:05 86 16 97 Room Air 12/05/16 16:00 72 16 96 Room Air 12/05/16 15:10 Room Air 12/05/16 14:55 36.9 81 16 146/94 94 Room Air 12/05/16 11:53 77 16 97 Room Air Physical Exam General Appearance: WD/WN, no apparent distress, + obese Eyes: normal inspection, PERRL, EOMI, sclerae normal ENT: normal ENT inspection, hearing grossly normal, pharynx normal Neck: supple, no adenopathy, thyroid normal, no JVD, no carotid bruits, trachea midline Respiratory/Chest: chest non-tender, normal breath sounds, no respiratory distress, no accessory muscle use, + decreased breath sounds Cardiovascular: regular rate, rhythm, no edema, no gallop, no JVD, no murmur Abdomen: normal bowel sounds, non tender, soft, no organomegaly, no pulsatile mass Extremities: normal range of motion, non-tender, normal inspection, no pedal edema, no calf tenderness, normal capillary refill, pelvis stable Neurologic/Psychiatric: parer II-XII nml as tested, no motor/sensory deficits, alert, normal mood/affect, oriented x 3 Skin: normal color, warm/dry, no rash Lymphatic: no adenopathy Laboratory Results Last 24 Hours Test 12/06/16 07:25 White Blood Count 9.18 K/uL Red Blood Count 3.71 M/uL Hemoglobin 11.4 g/dL Hematocrit 34.0 % Mean Corpuscular Volume 91.6 fL Mean Corpuscular Hemoglobin 30.7 pg Mean Corpuscular Hemoglobin Concent 33.5 g/dl RDW Standard Deviation 49.8 fL RDW Coefficient of Variation 14.8 % Platelet Count 257 K/uL Mean Platelet Volume 10.4 fL Sodium Level 142 mmol/L Potassium Level 3.5 mmol/L Chloride Level 107 mmol/L Carbon Dioxide Level 25 mmol/L Anion Gap 10.0 mmol/L Blood Urea Nitrogen 14 mg/dl Creatinine 0.72 mg/dl Est Creatinine Clear Calc Drug Dose 108.0 ml/min Estimated GFR () 111.6 Estimated GFR (Non- 96.3 BUN/Creatinine Ratio 19.4 Random Glucose 95 mg/dl Calcium Level 8.6 mg/dl Assessment and Plan 51-year-old female admitted on 12/05/2016 acute asthma exacerbation and discordant vocal cord syndrome, stable improving she wasseen in the emergency department on December 02 for shortness of breath and was diagnosed with acute asthma exacerbation at that time and was discharged on prednisone 50 mg daily. Since that time her symptoms have actually worsened somewhat, including the development of a more harsh cough, presented back to emergency department for assessment and was referred for evaluation for admission. per note , In the emergency department tonight she received nebulizers, IV Solu- Medrol 125 mg, IV magnesium without significant improvement. As she was attempted to be ambulated while in ED she became lightheaded and dizzy and felt like she was going to pass out. Acute Shortness of Breath, secondary to acute asthma exacerbation and discordant vocal cord syndrome, improves by current care Continue on IV steroids, nebulizer treatments consulted pulmonology RAST testing for zone 3 allergens and basic food profile was ordered. Hypokalemia/hypertension Continue hold HCTZ as a likely cause of low potassium, Discussed with patient about care plan, continue current care, encourage up and ambulation On the discharge home tomorrow with the recommendation from pulmonology GI and DVT prophylaxis Continued [facility] stay due to: multiple IV medications needed Discharge planning: home
[2016-12-06] MEDS: LEVOFLOXACIN 750 MG TAB PO SCH (11:19)
[2016-12-07 00:17] VITALS: BP 138/92; PULSE 79; TEMP 36.8; O2SAT 96
[2016-12-07 07:06] LABS: HEMATOCRIT 34.5 % (37-47); MEAN CELL VOLUME 92.2 fL (80-100); MEAN CORPUSCULAR HEMOGLOBIN 30.7 pg (25-34); MEAN CORPUSCULAR HGB CONC 33.3 g/dl (32-36); MEAN PLATELET VOLUME 10.1 fL (7.4-10.4); PLATELET COUNT 267 K/uL (130-400); RED BLOOD COUNT 3.74 M/uL (4.2-5.4); WHITE BLOOD COUNT 9.58 K/uL (4.8-10.8)
[2016-12-07] MEDS: ALBUT/IPRATROP 3MG/0.5MG NEB 3 ML VIAL INH SCH (07:19)
[2016-12-07 07:20] VITALS: PULSE 76; O2SAT 98
[2016-12-07] MEDS: BUDESONIDE 0.5 MG/2 ML VIAL (PULMICORT) INH SCH (07:20)
[2016-12-07 07:39] LABS: BUN/CREATININE RATIO 17.6 (10-20); CALCIUM 8.3 mg/dl (8.5-10.1); CREATININE 0.78 mg/dl (0.60-1.20); POTASSIUM 4.1 mmol/L (3.5-5.1)
[2016-12-07] MEDS ORDERED: PRT40 PO (07:49)
[2016-12-07] MEDS ORDERED: SYMIN160 INH (07:49)
[2016-12-07] MEDS ORDERED: PRD50 PO (07:49)
[2016-12-07] MEDS ORDERED: LVQ750 PO (07:49)
[2016-12-07 07:53] VITALS: BP 136/87; PULSE 74; TEMP 36.4; O2SAT 93
--- NOTE | 2016-12-07 07:57 | Discharge Instructions ---
Discharge Instructions Admission Reason for Admission: SOB Discharge Discharge Diagnosis / Problem: acute asthma exacerbation Discharge Goals Goal(s): Decrease discomfort, Improve function, Increase independence, Improve disease control, Improve nutritional status, Learn about illness, Diagnostic testing, Therapeutic intervention, Prevent Disease Progression, Specific goals Activity Recommendations Activity Limitations: resume your previous activity Lifting Limitations: none Exercise/Sports Limitations: none May Resume Sexual Activity: when tolerated Shower/Bathe: no limitations . Instructions / Follow-Up Instructions / Follow-Up you have acute asthma exacerbation stable improving you need to follow up with Dr. Aguilar and your pcp you need to follow up the results of RAST testing for zone 3 allergens and basic food profile - you need to follow up with your primary care physician in 1 week, - we are giving you tapering dose of Prednisone - take medication as instructed, never overdose or any misuse, or take with alcohol, because misuse of medicine may cause organ damage or , call your primary care physician if have questions of medications. - call your primary care physician OR go to local emergency room if has any fever/chill, chest pain, shortness of breathing, nausea/vomiting/abdominal pain , facial droop/slurry speech/local weakness, or if has any questions. - fall precaution - diet as instructed - you need to follow up with your subspecialist - you should understand that it is important to follow up the above instruction , and "not following the above instruction" may cause delayed or missed care of your medical conditions which may cause permanent organ damage and even . Current Hospital Diet Patient's current hospital diet: Regular Diet Discharge Diet Recommended Diet: AHA Diet (Heart Healthy) Pending Studies Studies pending at discharge: no Medical Emergencies . Who to Call and When: Medical Emergencies: If at any time you feel your situation is an emergency, please call 911 immediately. . Non-Emergent Contact Non-Emergency issues call your: Primary Care Provider, Home And School Visitor . Past History Medical & Surgical History: (1) Status asthmaticus (2) Shortness of breath (3) DJD (degenerative joint disease) of knee (4) Hypertension . "Provider Documentation" section prepared by Jasiel Carevr. VTE Core Measure Inpt VTE Proph given/why not?: Enoxaparin (Lovenox)SQ
[2016-12-07] MEDS: LOSARTAN POTASSIUM 50 MG TAB PO SCH (08:26)
[2016-12-07] MEDS: POTASSIUM CHLORIDE 20 MEQ TABCR PO SCH (08:26)
[2016-12-07] MEDS: ESCITALOPRAM OXALATE 10 MG TAB PO SCH (08:27)
[2016-12-07] MEDS: MULTIVITAMIN TAB PO SCH (08:27)
[2016-12-07] MEDS: METOPROLOL SUCC 50MG EXT REL TAB PO SCH (08:27)
[2016-12-07] MEDS: ENOXAPARIN 40 MG/0.4 ML SYR SQ SCH (08:28)
[2016-12-07] MEDS: TAMOXIFEN CITRATE 10 MG TAB PO SCH (08:29)
[2016-12-07] MEDS ORDERED: MONT1TAB3 PO (08:37)
[2016-12-07] MEDS ORDERED: PRED10TA PO (08:37)
--- NOTE | 2016-12-07 08:40 | PROGRESS NOTE ---
DATE: 12/07/2016 DATE: 12/07/2016. SUBJECTIVE: The patient states that she continues to have cough but still does not feel well. The cough is nonproductive. She has not had any wheezing or chest pain or shortness of breath. She has not had any edema of the lower extremities, nausea, vomiting or reflux symptoms. I did review her record again. CT scan suggests right lower lobe and perhaps right middle lobe infiltrative process. Culture so far are all unremarkable. Sputum Gram stain was contaminated specimen but she has not had any significant sputum production. Her main problem is cough. She also states that in 13 days she is going on a cruise and has to be "completely normal" before she goes on the cruise. Discussed the use of all of her medications, the fact that she is on antibiotics and steroids, inhalers, inhaled steroids and she understands. I will add on Singulair and Sandra. I believe the Toprol XL should be tapered down and stopped if possible, that is on board just for hypertension. We discussed the fact that the patient has asthma and that is improving and the pneumonia which should improve. She denies any dyspnea, has been out walking in the hallway, but otherwise feels well. The main problem is the cough and she is concerned about that. Her vital signs are stable and she is afebrile. PHYSICAL EXAMINATION: VITAL SIGNS: Blood pressure 136/87. Oxygen saturation 93% on room air. Weight is 102 kilograms. GENERAL: According to nurses' note, she is able to ambulate and did not have any complaints at all last night. Slept fairly well and was using the breathing treatments with no shortness of breath. HEAD, EYES, EARS, NOSE, AND THROAT: Unremarkable except for a small posterior pharynx. No thrush noted. NECK: There is no adenopathy. HEART: Regular rate and rhythm, 70 beats per minute. LUNGS: I thought were clear today. No crackles, wheezing or rales noted. Forced expiratory maneuver 2 seconds with no wheezing. ABDOMEN: Soft and obese, nontender. EXTREMITIES: She has no cyanosis, clubbing or edema. LABORATORY DATA: White count 9.58, hemoglobin 11.5, hematocrit 35%, platelet count 267,000, PRP is normal with a normal sugar of 87. IMPRESSION: 1. Asthma with exacerbation. 2. Right lower lobe and right middle lobe infiltrate with a normal white count. RECOMMENDATIONS: 1. Again try to taper down and stop the Toprol. If that is on board just for hypertension and no arrhythmia, I think other antihypertensive agents would be helpful. 2. Add Sandra 180 mg daily. 3. Continue on the Levaquin. That could be switched to 500 mg daily for a total of 7 days treatment. 4. Follow up with Dr. Bhardwaj as an outpatient. She should have a chest x-ray done again in about a month. 5. Add Singulair 10 mg daily. 6. Add Symbicort 160/4.5 two puffs b.i.d. and stop the budesonide Respules. Overall, she is quite stable.
[2016-12-07] MEDS ORDERED: BUDESONIDE/FORMOTEROL FUMARATE 160/4.5 60 PUFFS/INHALER INH SCH (09:00)
[2016-12-07] MEDS ORDERED: PANTOprazole SOD 40 MG TAB PO SCH (09:00)
[2016-12-07] MEDS ORDERED: FEXOFENADINE HCL 180 MG TAB PO SCH (09:00)
[2016-12-07 09:37] VITALS: BP 136/87; PULSE 74; TEMP 36.4; O2SAT 93
[2016-12-07] MEDS: LEVOFLOXACIN 750 MG TAB PO SCH (10:14)
--- NOTE | 2016-12-07 13:31 | Discharge Summary ---
Discharge Summary Admission Date: Dec 05, 2016 at 05:16 Discharge Date: Dec 07, 2016 Discharge Disposition: Home Principal Diagnosis: Asthma with exacerbation. Problems/Secondary Diagnoses: Possible right lower lung pneumonia with Right lower lobe and right middle lobe infiltrate with a normal white count. 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 New Medications: Budesonide/Formoterol Fumarate (Symbicort 160/4.5 Inhaler) 120 Puffs/ Aero 2 PUFFS INH BID, #10.6 GM 3 Refills Montelukast Sodium (Singulair) 10 Mg Tab 1 TAB PO DAILY for 30 Days, #30 TAB 1 Refill Prednisone Tab (Prednisone) 10 Mg Tab 30 MG PO DAILY for 21 Days, #42 TAB 30mg po daily for 7 days, then 20mg po daily for 7 days, then 10mg po daaily for 7 days, then stop Levofloxacin (Levofloxacin) 750 Mg Tab 750 MG PO DAILY@11 for 5 Days, TAB Pantoprazole (Pantoprazole Sodium) 40 Mg Tab 40 MG PO QAM for 7 Days, #7 TAB Continued Medications: Albuterol Hfa (Ventolin Hfa) 200 Puffs/73034 Mcg Aers 2-4 PUFFS INH Q6H PRN for SOB/Wheezing Escitalopram (Lexapro) 10 Mg Tab 10 MG PO QAM, TAB Hydrochlorothiazide (Hydrochlorothiazide) 25 Mg Tab 25 MG PO QAM Lorazepam (Ativan) 0.5 Mg Tab 0.5 MG PO DAILY PRN for Anxiety, TAB Losartan Potassium (Cozaar) 100 Mg Tab 100 MG PO DAILY, TAB Metoprolol Succinate (Metoprolol Succinate ER) 50 Mg Tabcr 3 TAB PO QAM 150 MG DOSE Multiple Vitamin (Multi Vitamin Daily) 1 Tab Tab 1 TAB PO QAM Potassium Chloride Microencaps (Potassium Chloride Er) 20 Meq Tab 20 MEQ PO TID Tamoxifen Citrate (Nolvadex) 20 Mg Tab 20 MG PO DAILY, TAB Vitamin E (E-400) 400 Unit Cap 100 UNITS PO QAM Discontinued Medications: Prednisone (Prednisone) 50 Mg Tab 50 MG PO DAILY for 4 Days, TAB Discharge Exam Feeling better, mild cough, has been out of bed and walk no obvious difficulty breathing, no wheezing Review of Systems: Constitutional: No chills, No fatigue, No fever, No problem reported, No sweats, No weakness, No weight loss Eyes: No diplopia, No discharge, No eye pain, No problem reported, No redness, No worsening of vision ENT: No dental problems, No hearing loss, No nasal symptoms, No problem reported, No sore throat, No tinnitus, No trouble swallowing, No unusual epistaxis Respiratory: + cough, + shortness of breath Abdomen: No GI bleeding, No constipation, No diarrhea, No nausea, No pain, No problem reported, No vomiting Musculoskeletal: No calf pain, No joint pain, No muscle pain, No problem reported, No swelling Genitourinary - Female: No dysmenorrhea, No dysuria, No hematuria, No menorrhagia, No metrorrhagia, No , No problem reported, No rash, No urinary frequency, No urinary incontinence, No urinary retention, No urinary urgency, No vaginal bleeding, No vaginal discharge, No vaginal itching, No vulvodynia Neurologic: No balance problems, No memory loss, No numbness/tingling, No paralysis, No problem reported, No vertigo, No weakness Psychiatric: No anhedonism, No anxiety, No depression symptoms, No insomnia , No problem reported, No substance abuse Endocrine: No excessive thirst, No excessive urination, No fatigue, No problem reported Hematologic / Lymphatic: No abnormal bleeding/bruising, No clotting problems , No night sweats, No problem reported, No swollen lymph nodes Integumentary: No bleeding, No color change, No itch, No new/changing skin lesions, No problem reported, No rash Physical Exam: General Appearance: WD/WN, no apparent distress Eyes: normal inspection, PERRL, EOMI ENT: normal ENT inspection, hearing grossly normal Neck: supple, no adenopathy Respiratory/Chest: chest non-tender, normal breath sounds, no respiratory distress, no accessory muscle use, + decreased breath sounds Cardiovascular: regular rate, rhythm, no edema, no gallop, no JVD Abdomen / GI: normal bowel sounds, non tender, soft, no organomegaly, no pulsatile mass Extremities: normal inspection, no calf tenderness, normal capillary refill 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 Since that time her symptoms have actually worsened somewhat, including the development of a more harsh cough, presented back to emergency department for assessment and was referred for evaluation for admission. per note , In the emergency department tonight she received nebulizers, IV Solu- Medrol 125 mg, IV magnesium without significant improvement. As she was attempted to be ambulated while in ED she became lightheaded and dizzy and felt like she was going to pass out. Acute Shortness of Breath, secondary to acute asthma exacerbation and discordant vocal cord syndrome, and possible pna: improves by current care Was on on IV steroids, nebulizer treatments consulted pulmonology RAST testing for zone 3 allergens and basic food profile was ordered. Dr. Aguilar feels she has Asthma with exacerbation, Right lower lobe and right middle lobe infiltrate with a normal white count. Dr. Aguilar recommend stop the Toprol, Add Sandra 180 mg daily, Continue on the Levaquin. That could be switched to 500 mg daily for a total of 7 days treatment. Follow up with Dr. Bhardwaj as an outpatient. She should have a chestx-ray done again in about a month. Add Singulair 10 mg daily. Add Symbicort 160/4.5 two puffs b.i.d. and stop the budesonide Respules. Rx of Sandra transmit to pharmacy Metoprolol Succinate (Metoprolol Succinate ER) is discontinued , will to notified patient to /u with pcp for blood pressure control Hypokalemia/hypertension Continue hold HCTZ as a likely cause of low potassium, Instructions / Follow-Up you have acute asthma exacerbation stable improving you need to follow up with Dr. Aguilar and your pcp you need to follow up the results of RAST testing for zone 3 allergens and basic food profile - you need to follow up with your primary care physician in 1 week, - we are giving you tapering dose of Prednisone - take medication as instructed, never overdose or any misuse, or take with alcohol, because misuse of medicine may cause organ damage or , call your primary care physician if have questions of medications. - call your primary care physician OR go to local emergency room if has any fever/chill, chest pain, shortness of breathing, nausea/vomiting/abdominal pain , facial droop/slurry speech/local weakness, or if has any questions. - fall precaution - diet as instructed - you need to follow up with your subspecialist - you should understand that it is important to follow up the above instruction , and "not following the above instruction" may cause delayed or missed care of your medical conditions which may cause permanent organ damage and even . - pulmonargist recs stop Metoprolol Succinate (Metoprolol Succinate ER) , I have navigator to notify you, and please f/u with your pcp for blood pressure control GI and DVT prophylaxis Total Time Spent: Greater than 30 minutes This includes examination of the patient, discharge planning, medication reconciliation, and communication with other providers. Discharge Instructions Please refer to the electronic Patient Visit Report (Discharge Instructions) for additional information. Additional Copies To Obinna Aguilar D.O. Pulmonary; Jorge Alberto Bhardwaj M.D.
[2016-12-07] MEDS ORDERED: FEXO1TAB49 PO (13:32)
[2016-12-07] MEDS ORDERED: MONTELUKAST SOD 10 MG TAB PO SCH (21:00)
[2016-12-11 20:15] LABS: ALTERNARIA CLASS 0; ALTERNARIA IGE <0.10 KU/L; ASPERG FUMIG CLASS 0; ASPERG FUMIG IGE <0.10 KU/L; BAHIA GRASS ASM CLASS 0; BAHIA GRASS IGE <0.10 KU/L; BERMUDA GRASS CLASS 0; BERMUDA GRASS IGE <0.10 KU/L; BIRCH CLASS 0; BLACK LOCUST CLASS 0; BLACK LOCUST IGE <0.35 kU/L (<0.35); CASHEW CLASS 0; CASHEW IGE <0.10 KU/L; CAT DANDER CLASS 0/1; CLADOSPORIUM HER CLASS 0; CLADOSPORIUM HER IGE <0.10 KU/L; COCKROACH CLASS 0; CODFISH CLASS 0; D. FARINAE CLASS 3; D. PTERONYSSINUS CLASS 3; D. PTERONYSSINUS IGE 9.04 KU/L; DOG DANDER CLASS 0/1; EGG WHITE CLASS 0/1; EGG WHITE IGE 0.13 KU/L; ELM CLASS 0; ENGLISH PLAN CLASS 0; ENGLISH PLAN IGE <0.10 KU/L; HAZELNUT CLASS 0; JOHNSON CLASS 0; JOHNSON IGE <0.10 KU/L; JUNE (KENTUCKY BLUE) CLASS 0; JUNE IGE <0.10 KU/L; MAPLE (BOX ELDER) IGE <0.10 KU/L; MAPLE CLASS 0; MOUNTAIN CEDAR ASM CLASS 0; MOUNTAIN CEDAR IGE <0.10 KU/L; MUCOR CLASS 0; MUCOR IGE <0.10 KU/L; NETTLE CLASS 0; NETTLE IGE <0.10 KU/L; PEANUT IGE <0.10 KU/L; PENIC NOTATUM CLASS 0; PENIC NOTATUM IGE <0.10 KU/L; RAST ALMOND CLASS 0; RAST ALMOND IGE <0.10 KU/L; RAST HAZELNUT IGE <0.10 KU/L; ROUGH PIGWEED CLASS 0; ROUGH PIGWEED IGE <0.10 KU/L; SALMON CLASS 0; SALMON IGE <0.10 KU/L; SCALLOP CLASS 0; SCALLOP IGE <0.10 KU/L; SESAME CLASS 0; SESAME IGE <0.10 KU/L; SHORT RAGWEED CLASS 0/1; SHORT RAGWEED IGE 0.14 KU/L; SHRIMP CLASS 0; SOY CLASS 0; SOY IGE <0.10 KU/L; STEMPHY BOTRY CLASS 0; STEMPHY BOTRY IGE <0.10 KU/L; TUNA CLASS 0; TUNA IGE <0.10 KU/L; WALNUT CLASS 0; WHEAT CLASS 2; WHEAT IGE 1.17 KU/L; WHITE HICKORY ASM CLASS 0; WHITE HICKORY IGE <0.10 kU/L (<0.35); WHITE MULBERRY CLASS 0; WHITE MULBERRY IGE <0.10 KU/L
[2017-05-10] MEDS ORDERED: SYMIN160 INH (09:47)
[2017-05-10] MEDS ORDERED: VITA400C3 PO (09:47)
== END 2016-12-07 10:58 | disposition home or self-care (01) ==
LOC: ENRESERVTM → ENRESERVDT → C.EDB 02:16 → C.MSN 05:16
PROVIDERS: ADMIT Student in an Organized Health Care Education/Training Program; ATTEND Hospitalist
DX: J45.901 Unspecified asthma with (acute) exacerbation (principal); J18.9 Pneumonia, unspecified organism; I10 Essential (primary) hypertension; E87.6 Hypokalemia; Z82.49 Family history of ischemic heart disease and other diseases of the circulatory system; Z79.899 Other long term (current) drug therapy; Z79.52 Long term (current) use of systemic steroids; Z85.3 Personal history of malignant neoplasm of breast

== ENCOUNTER → 2016-12-19 | Outpatient (CLI) | payer OTHER ==
[~2016-12-19] MED LIST changes: -CZR50 PO; +FEXO1TAB49 PO; +LOSA1TAB38 PO; +LVQ750 PO; +MONT1TAB3 PO; +PRED10TA PO; -PRED50TA PO; +PRT40 PO; +SYMIN160 INH; -TPRSR/50 PO; +VITA400C3 PO
--- NOTE | 2016-12-19 15:25 | DIAGNOSTIC IMAGING REPORT ---
CHEST 2 VIEWS ROUTINE CLINICAL HISTORY: J45.909 Asthmatic [id number] COMPARISON STUDY: 12/05/2016 FINDINGS: The cardiac and mediastinal contours are normal. There is no evidence of focal pulmonary consolidation. There is no evidence of failure. No pleural effusions are visualized.[ IMPRESSION: No active disease in the chest. Electronically signed by: Piotr Null M.D. 12/19/2016 3:23 PM Dictated Date/Time: 12/19/2016 3:23 PM
== END | disposition home or self-care (01) ==
LOC: C.RAD1850 15:09
PROVIDERS: ATTEND Nurse Practitioner
DX: J18.9 Pneumonia, unspecified organism (principal); J45.909 Unspecified asthma, uncomplicated

== ENCOUNTER → 2017-01-30 | Outpatient (CLI) | payer OTHER ==
[~2017-01-30] MED LIST changes: +BENZ1CAP90 PO; +METO-648 PO; +NAPR1TAB9 PO; +PRED20TA PO
[2017-02-07 11:33] LABS: ISOSPORA+CYCLOSPORA NOT DETECTED; O&P GIARDIA AG NOT DETECTED (NOT DETECTED); O&P SOURCE OTHER-STOOL
== END | disposition home or self-care (01) ==
LOC: C.LABSPEC 12:01
PROVIDERS: ATTEND Nurse Practitioner
DX: R19.7 Diarrhea, unspecified (principal)

== ENCOUNTER → 2017-01-30 | Outpatient (CLI) | payer OTHER ==
[2017-01-30 12:50] LABS: BASO % 0.4 %; BASO ABS # 0.03 K/uL (0-0.2); COMPLETE YES; HEMATOCRIT 39.3 % (37-47); IG% 0.3 %; LYMPH % 22.1 %; LYMPH ABS # 1.61 K/uL (1.2-3.4); MEAN CELL VOLUME 91.4 fL (80-100); MEAN CORPUSCULAR HEMOGLOBIN 31.2 pg (25-34); MEAN CORPUSCULAR HGB CONC 34.1 g/dl (32-36); MEAN PLATELET VOLUME 11.2 fL (7.4-10.4); MONO % 4.9 %; NEUT % 64.3 %; PLATELET COUNT 270 K/uL (130-400); WHITE BLOOD COUNT 7.28 K/uL (4.8-10.8)
[2017-01-30 13:46] LABS: BLOOD UREA NITROGEN 18 mg/dl (7-18); BUN/CREATININE RATIO 19.7 (10-20); CALCIUM 9.1 mg/dl (8.5-10.1); CARBON DIOXIDE 28 mmol/L (21-32); CHLORIDE 101 mmol/L (98-107); CREATININE 0.92 mg/dl (0.60-1.20); GLUCOSE 133 mg/dl (70-99); POTASSIUM 3.4 mmol/L (3.5-5.1); SODIUM 138 mmol/L (136-145)
== END | disposition home or self-care (01) ==
LOC: C.LABBFT 09:43
PROVIDERS: ATTEND Nurse Practitioner
DX: R19.7 Diarrhea, unspecified (principal)

== ENCOUNTER → 2017-02-28 | Outpatient (CLI) | payer OTHER ==
[2017-02-28 17:38] LABS: BASO % 0.5 %; BASO ABS # 0.03 K/uL (0-0.2); COMPLETE YES; EOS % 7.9 %; HEMATOCRIT 37.6 % (37-47); IG% 0.3 %; LYMPH % 30.5 %; LYMPH ABS # 1.77 K/uL (1.2-3.4); MEAN CELL VOLUME 94.9 fL (80-100); MEAN CORPUSCULAR HEMOGLOBIN 31.1 pg (25-34); MEAN CORPUSCULAR HGB CONC 32.7 g/dl (32-36); MEAN PLATELET VOLUME 10.4 fL (7.4-10.4); MONO % 6.9 %; NEUT % 53.9 %; PLATELET COUNT 315 K/uL (130-400); RED BLOOD COUNT 3.96 M/uL (4.2-5.4); WHITE BLOOD COUNT 5.81 K/uL (4.8-10.8)
[2017-02-28 17:55] LABS: ALT/SGPT 22 U/L (12-78); AST/SGOT 13 U/L (15-37); BLOOD UREA NITROGEN 20 mg/dl (7-18); BUN/CREATININE RATIO 23.1 (10-20); CALCIUM 8.9 mg/dl (8.5-10.1); CARBON DIOXIDE 30 mmol/L (21-32); CHLORIDE 106 mmol/L (98-107); CREATININE 0.87 mg/dl (0.60-1.20); GLUCOSE 90 mg/dl (70-99); POTASSIUM 3.9 mmol/L (3.5-5.1); SODIUM 142 mmol/L (136-145)
[2017-02-28 18:06] LABS: ALB/GLOB RATIO 1.1 (0.9-2); ALKALINE PHOSPHATASE 56 U/L (45-117)
== END | disposition home or self-care (01) ==
LOC: C.LABBFT 13:29
PROVIDERS: ATTEND Physician Assistant Medical
DX: R10.9 Unspecified abdominal pain (principal)

== ENCOUNTER → 2017-05-15 | Day surgery (SDC) | payer OTHER ==
[2017-05-10 09:48] VITALS: Ht 165.1 cm; Wt 106.8 kg
[~2017-05-15] VITALS: Ht 165.1 cm; Wt 106.8 kg
[~2017-05-15] MED LIST changes: -BENZ1CAP90 PO; -FEXO1TAB49 PO; +LIDOCAINE HCL 2% 2 ML VIAL (20MG/ML) ONE; -LVQ750 PO; -METO-648 PO; -MONT1TAB3 PO; -PRED10TA PO; -PRED20TA PO; +PROPOFOL IV EMULSION 10 MG/ML 20 ML VIAL IV ONE; +SODIUM CHLORIDE 0.9% 500ML 500 ML IV ONE; -VITACAP37 PO
--- NOTE | 2017-05-15 12:09 | Endo History and Physical ---
History & Physical Date of Service: May 15, 2017. Chief Complaint: ABDOMINAL PAIN, DIARRHEA Referring Physician: DR. DOYLE History of Present Illness 52 yo CF who presents for colonoscopy secondary to abdominal pain and diarrhea. Past Medical History Arthritis, Hypertension Past Surgical History Hx Cardiac Surgery: No Hx Internal Defibrillator: No Hx Pacemaker: No Hx Abdominal Surgery: Yes (PARTIAL HYSTERECTOMY) Hx of Implantable Prosthesis: No Hx Post-Op Nausea and Vomiting: Yes Hx Cancer Surgery: Yes (LEFT MASTECTOMY WITH RECONSTRUCTION) Hx Thoracic Surgery: No Hx Orthopedic: Yes (LEFT/RT TKA) Hx Urinary Tract Surgery: No Family History None Social History Smoking Status: Never Smoker Hx Substance Use: No Hx Alcohol Use: Yes (RARELY) Allergies Coded Allergies: ENMANUEL Inhibitors (Verified Adverse Reaction, Unknown, COUGH, 05/15/17) Current Medications Reported Home Medications Medications Dose Route/Sig Max Daily Dose Days Date Category Vitamin E 400 Iu (Vitamin E) 400 Unit Cap 400 Inter.unit PO QAM 05/10/17 Reported Symbicort 160/4.5 Inhaler (Budesonide/Formoterol Fumarate) Aero 2 Puffs INH BID PRN 05/10/17 Reported Pantoprazole Sodium (Pantoprazole) 40 Mg Tab 40 Mg PO QAM 7 12/07/16 Rx Cozaar (Losartan Potassium) 100 Mg Tab 100 Mg PO QAM 12/05/16 Reported Nolvadex (Tamoxifen Citrate) 20 Mg Tab 20 Mg PO QAM 12/02/16 Reported Ventolin Hfa (Albuterol) 200 Puffs/76547 Mcg Aers 2-4 Puffs INH Q6H PRN 08/10/16 Reported Lexapro (Escitalopram Oxalate) 10 Mg Tab 10 Mg PO QAM 08/10/16 Reported Ativan (Lorazepam) 0.5 Mg Tab 0.5 Mg PO DAILY PRN 11/04/15 Reported Multi Vitamin Daily (Multiple Vitamin) 1 Tab Tab 1 Tab PO QAM 12/08/14 Reported Potassium Chloride Er (Potassium Chloride Microencaps) 20 Meq Tab 20 Meq PO TID 07/09/14 Reported Hydrochlorothiazide 25 Mg Tab 25 Mg PO QAM 07/09/14 Reported Vital Signs Weight (Kilograms): 106.82 Height (Feet): 5 Height (Inches): 5 Date Time Temp Pulse Resp B/P (MAP) Pulse Ox O2 Delivery O2 Flow Rate FiO2 7/18/17 11:25 37.3 79 20 160/95 (116) 96 Room Air Physical Exam General Appearance: WD/WN, no apparent distress Respiratory/Chest: Auscultation: breath sounds normal Cardiovascular: Heart Auscultation: RRR Abdomen: Bowel Sounds: normal Inspection & Palpation: soft, non-distended, no tenderness, guarding & rebound Assessment and Plan Assessment: 52 yo CF who presents for colonoscopy secondary to abdominal pain and diarrhea. Plan: Proceed with colonoscopy.
--- NOTE | 2017-05-15 12:36 | Discharge Instructions ---
Endoscopy Patient Instructions Date / Procedure(s) Performed May 15, 2017. Colonoscopy Allergy Information Coded Allergies: ENMANUEL Inhibitors (Verified Adverse Reaction, Unknown, COUGH, 05/15/17) Discharge Date / Findings May 15, 2017. Diverticulosis Internal hemorrhoids Random colon biopsies Stool aspirate collected Medication Instructions OK to resume all medications today as prescribed Reported Home Medications Medications Dose Route/Sig Max Daily Dose Days Date Category Vitamin E 400 Iu (Vitamin E) 400 Unit Cap 400 Inter.unit PO QAM 05/10/17 Reported Symbicort 160/4.5 Inhaler (Budesonide/Formoterol Fumarate) Aero 2 Puffs INH BID PRN 05/10/17 Reported Pantoprazole Sodium (Pantoprazole) 40 Mg Tab 40 Mg PO QAM 7 12/07/16 Rx Cozaar (Losartan Potassium) 100 Mg Tab 100 Mg PO QAM 12/05/16 Reported Nolvadex (Tamoxifen Citrate) 20 Mg Tab 20 Mg PO QAM 12/02/16 Reported Ventolin Hfa (Albuterol) 200 Puffs/57599 Mcg Aers 2-4 Puffs INH Q6H PRN 08/10/16 Reported Lexapro (Escitalopram Oxalate) 10 Mg Tab 10 Mg PO QAM 08/10/16 Reported Ativan (Lorazepam) 0.5 Mg Tab 0.5 Mg PO DAILY PRN 11/04/15 Reported Multi Vitamin Daily (Multiple Vitamin) 1 Tab Tab 1 Tab PO QAM 12/08/14 Reported Potassium Chloride Er (Potassium Chloride Microencaps) 20 Meq Tab 20 Meq PO TID 07/09/14 Reported Hydrochlorothiazide 25 Mg Tab 25 Mg PO QAM 07/09/14 Reported Provider Instructions Activity Restrictions - No exercising or heavy lifting for 24 hours. - Do not drink alcohol the day of the procedure. - Do not drive a car or operate machinery until the day after the procedure. - Do not make any important decisions or sign important papers in 24 hours after the procedure. Following Day: - Return to full activity which may include returning to work/school. Diet Start your diet with liquids and light foods (jello, soup, juice, toast). Then eat your usual diet if not nauseated. Treatment For Common After Affects For mild abdominal pain, bloating, or excessive gas: - Rest - Eat lightly - Lie on right side Follow-Up Information Follow-up with DR. DOYLE as scheduled Anesthesia Information What You Should Know You have had a procedure that required some medicine to reduce anxiety and discomfort. This treatment is called moderate sedation. After receiving the treatment, you may be sleepy, but you will be able to breathe on your own. The effects of the treatment may last for several hours. Follow these instructions along with Activity/Diet recommendations noted above: * Do NOT do anything where dizziness or clumsiness would be dangerous. * Rest quietly at home today, then you can be up and about tomorrow. * Have a responsible person stay with you the rest of today. * You may have had an I.V. today. If so, you may take the dressing off later today. Recommendations Call your doctor if: * Trouble breathing * Continuous vomiting for more than 24 hours * Temperature above 101 degrees * Severe abdominal pain or bloating * Pain not relieved by pain medicine ordered * There is increased drainage or redness from any incision * A large amount of rectal bleeding greater than 2-3 tablespoons. (If you had a polyp/s removed or have hemorrhoids, a small amount of blood - from the rectum is to be expected.) * You have any unanswered questions or concerns. IN THE EVENT OF A SERIOUS EMERGENCY, GO TO THE NEAREST EMERGENCY ROOM Your discharge instructions were prepared by provider Chaitanya Short. Patient Instructions Signature Page Rosemarie Whitmore Patient (or Guardian) Signature/Date: I have read and understand the instructions given to me by my caregivers. Caregiver/RN/Doctor Signature/Date: The above-named patient and/or guardian has received patient instructions on this date. + Original Patient Signature Page (only) stays with chart. Please make copy for patient.
--- NOTE | 2017-05-15 12:42 | GI REPORT ---
Procedure Date: 05/15/2017 12:04 PM Procedure: Colonoscopy Indications: Chronic diarrhea, Unexplained iron deficiency anemia Medicines: Monitored Anesthesia Care Complications: No immediate complications. Estimated Blood Loss: Estimated blood loss: none. Procedure: Pre-Anesthesia Assessment: - Prior to the procedure, a History and Physical was performed, and patient medications and allergies were reviewed. The patient's tolerance of previous anesthesia was also reviewed. The risks and benefits of the procedure and the sedation options and risks were discussed with the patient. All questions were answered, and informed consent was obtained. Prior Anticoagulants: The patient has taken no previous anticoagulant or antiplatelet agents. ASA Grade Assessment: II - A patient with mild systemic disease. After reviewing the risks and benefits, the patient was deemed in satisfactory condition to undergo the procedure. After I obtained informed consent, the scope was passed under direct vision. Throughout the procedure, the patient's blood pressure, pulse, and oxygen saturations were monitored continuously. The On-site loaner was introduced through the anus and advanced to the terminal ileum. The colonoscopy was performed without difficulty. The patient tolerated the procedure well. The quality of the bowel preparation was good. The terminal ileum, ileocecal valve, appendiceal orifice, and rectum were photographed. Findings: Multiple small-mouthed diverticula were found in the sigmoid colon. Non-bleeding internal hemorrhoids were found during retroflexion. The hemorrhoids were small. Multiple random biopsies were obtained with cold forceps for histology in the entire colon. Fluid aspiration for cytology was performed in the entire colon. Impression: - Diverticulosis in the sigmoid colon. - Non-bleeding internal hemorrhoids. - Multiple random biopsies were obtained in the entire colon. - Fluid aspiration was performed. Recommendation: - Resume previous diet. - Continue present medications. - Repeat colonoscopy for surveillance based on pathology results. - Return to primary care physician as previously scheduled. Chaitanya Short DO 05/15/2017 12:42:11 PM This report has been signed electronically. Note Initiated On: 05/15/2017 12:04 PM I attest to the content of the Intraoperative Record and orders documented therein, exceptions below
--- NOTE | 2017-05-15 12:47 | Anesthesiology Progress Note ---
Anesthesia Post Op Note Date & Time May 15, 2017 at 12:47 Vital Signs Pain Intensity: 0 Vital Signs Past 12 Hours Date Time Temp Pulse Resp B/P (MAP) Pulse Ox O2 Delivery O2 Flow Rate FiO2 05/15/17 12:40 72 20 116/58 (77) 97 Room Air 05/15/17 11:25 37.3 79 20 160/95 (116) 96 Room Air Notes Mental Status: alert / awake / arousable, participated in evaluation Pt Amnestic to Procedure: Yes Nausea / Vomiting: adequately controlled Pain: adequately controlled Airway Patency, RR, SpO2: stable & adequate BP & HR: stable & adequate Hydration State: stable & adequate Anesthetic Complications: no major complications apparent
[2017-05-15 13:06] VITALS: BP 171/105; PULSE 72; O2SAT 100
== END | disposition home or self-care (01) ==
LOC: C.GI 11:12
PROVIDERS: ATTEND Internal Medicine
DX: R19.7 Diarrhea, unspecified (principal); D50.9 Iron deficiency anemia, unspecified; K57.30 Diverticulosis of large intestine without perforation or abscess without bleeding; K64.8 Other hemorrhoids; I10 Essential (primary) hypertension; M19.90 Unspecified osteoarthritis, unspecified site; Z90.710 Acquired absence of both cervix and uterus; Z90.12 Acquired absence of left breast and nipple; Z96.653 Presence of artificial knee joint, bilateral

== ENCOUNTER → 2017-08-20 | Outpatient (CLI) | payer OTHER ==
[~2017-08-20] MED LIST changes: -LIDOCAINE HCL 2% 2 ML VIAL (20MG/ML) ONE; -PROPOFOL IV EMULSION 10 MG/ML 20 ML VIAL IV ONE; -PRT40 PO; -SODIUM CHLORIDE 0.9% 500ML 500 ML IV ONE
--- NOTE | 2017-08-20 13:03 | DIAGNOSTIC IMAGING REPORT ---
LUMBAR SPINE W/O CONTRAST CLINICAL HISTORY: 52 years-old Female with LUMBAR RADICULOPATHY. Right-sided hip pain radiating into the right leg. No known injury. History of breast cancer with prior mastectomy COMPARISON: MRI lumbar spine 12/24/2014 TECHNIQUE: Multiplanar, multi sequence MRI of the lumbar spine was performed without intravenous contrast. FINDINGS: Exam is mildly motion degraded. The large [id number] lime boiler images demonstrate no gross amount of the abdomen or pelvis. No focal paraspinal abnormality. There is moderate left and mild right bone marrow edema noted involving the L5 pedicles as seen on image 11 series 4 and image 3 of series 4 respectively without focal fracture line suggesting stress response. No marrow replacing process identified. Moderate intervertebral disc space narrowing at T11-T12 with circumferential annular disc bulge, endplate spurring anteriorly and Modic type II endplate degenerative changes. Signal within the cord is within normal limits. Conus medullaris terminates at L1-L2. T11-T12: Moderate intervertebral disc space narrowing with circumferential annular disc bulge causing mild central canal narrowing as seen on the sagittal imaging alone. Unchanged. T12-L1: No central canal or neural foraminal stenosis. Unchanged. L1-L2: No central canal or neural foraminal stenosis. Mild facet arthrosis. Unchanged. L2-L3: No central canal or neural foraminal stenosis. Mild facet arthrosis. Unchanged. L3-L4: Mild intervertebral disc space narrowing with posterior spondylitic spurring and small circumferential annular disc bulge, mild facet arthropathy and small facet effusions. No central canal narrowing. Mild inferior left foraminal stenosis. Right foramen is patent. Unchanged. L4-L5: Small broad-based posterior disc bulge with moderate facet arthropathy and ligamentum flavum thickening causes flattening of the ventral thecal sac with mild bilateral inferior foraminal stenosis. Unchanged. L5-S1: Mild intervertebral disc space narrowing with posterior spondylitic spurring and broad-based left foraminal and extraforaminal disc protrusion with small annular fissure abutting the adjacent left L5 nerve root causing mild left lateral recess and left foraminal narrowing. No central canal or right foraminal narrowing identified. These findings appear slightly improved from comparison. IMPRESSION: 1. Mild intervertebral disc space narrowing with posterior spondylitic spurring and broad-based left foraminal/extraforaminal disc protrusion with small annular fissure is again seen at L5-S1 abutting the adjacent left L5 nerve root causing mild left lateral recess and mild left foraminal narrowing. The size of the protrusion appears slightly decreased from comparison study 12/24/2014. 2. Moderate intervertebral disc space narrowing at T11-T12 appears unchanged causing mild central canal stenosis as seen on the sagittal imaging alone. 3. Additional mild discogenic degenerative changes and facet arthropathy as above without high-grade central canal or foraminal narrowing. 4. Moderate left and mild right L5 pedicle bone marrow edema without fracture suggests stress response. The above report was generated using voice recognition software. It may contain grammatical, syntax or spelling errors. Electronically signed by: Sony Malcolm M.D. 08/20/2017 1:02 PM Dictated Date/Time: 08/20/2017 10:03 AM
== END | disposition home or self-care (01) ==
LOC: C.MRIBC 09:01
PROVIDERS: ATTEND Physician Assistant Medical
DX: M54.16 Radiculopathy, lumbar region (principal)

== ENCOUNTER → 2017-09-07 | Outpatient (CLI) | payer OTHER ==
--- NOTE | 2017-09-07 15:37 | MAMMOGRAPHY REPORT ---
UNILATERAL RIGHT DIGITAL SCREENING MAMMOGRAM TOMOSYNTHESIS WITH CAD: 09/07/2017 CLINICAL HISTORY: Routine screening. Patient has no complaints. TECHNIQUE: Breast tomosynthesis in addition to standard 2D mammography was performed. Current study was also evaluated with a Computer Aided Detection (CAD) system. COMPARISON: Comparison is made to exams dated: 09/06/2016 mammogram, 09/15/2015 stereotactic biopsy, 09/15/2015 mammogram, 08/26/2015 mammogram, 08/26/2015 stereotactic biopsy, and 08/24/2015 mammogram - [facility]. BREAST COMPOSITION: There are scattered areas of fibroglandular density in the right breast. FINDINGS: There are no suspicious masses, calcifications, or areas of architectural distortion noted in the right breast. There has been no significant interval change compared to prior exams. IMPRESSION: ACR BI-RADS CATEGORY 1: NEGATIVE There is no mammographic evidence of malignancy in the right breast. A 1 year screening mammogram is recommended. The patient will receive written notification of the results. Approximately 10% of breast cancers are not detected with mammography. A negative mammographic report should not delay biopsy if a clinically suggestive mass is present. Deanna Barbour M.D. ah/:09/07/2017 12:10:29 Steeping Press Tender: Fatmata CUELLAR(Leo)(M), [facility] letter sent: Normal 1/2 BI-RADS Code: ACR BI-RADS Category 1: Negative
== END | disposition home or self-care (01) ==
LOC: C.MAMM 10:31
PROVIDERS: ATTEND Internal Medicine
DX: Z12.31 Encounter for screening mammogram for malignant neoplasm of breast (principal)

== ENCOUNTER 2017-09-24 03:02 | Emergency (ER) | payer OTHER ==
[~2017-09-24] VITALS: Ht 165.1 cm; Wt 111.6 kg
[~2017-09-24 03:02] MED LIST changes: +PRED20TA PO
[2017-09-24 03:06] VITALS: TEMP 36.4; Ht 165.1 cm; Wt 111.6 kg
[2017-09-24] MEDS ORDERED: METHYLPREDNISOLONE 125 MG VIAL IV STA (03:15)
[2017-09-24] MEDS ORDERED: ALBUT/IPRATROP 3MG/0.5MG NEB 3 ML VIAL INH ONE (03:15)
[2017-09-24 03:31] VITALS: PULSE 86; O2SAT 100
[2017-09-24 03:38] LABS: BASO % 0.1 %; BASO ABS # 0.01 K/uL (0-0.2); COMPLETE YES; EOS % 0.1 %; HEMATOCRIT 35.5 % (37-47); IG% 0.4 %; LYMPH % 18.7 %; LYMPH ABS # 1.91 K/uL (1.2-3.4); MEAN CELL VOLUME 91.7 fL (80-100); MEAN CORPUSCULAR HGB CONC 33.8 g/dl (32-36); MEAN PLATELET VOLUME 10.4 fL (7.4-10.4); NEUT % 74.7 %; PLATELET COUNT 261 K/uL (130-400); RED BLOOD COUNT 3.87 M/uL (4.2-5.4); WHITE BLOOD COUNT 10.24 K/uL (4.8-10.8)
[2017-09-24 04:05] LABS: BLOOD UREA NITROGEN 14 mg/dl (7-18); BUN/CREATININE RATIO 14.6 (10-20); CALCIUM 8.5 mg/dl (8.5-10.1); CARBON DIOXIDE 17 mmol/L (21-32); CHLORIDE 105 mmol/L (98-107); CREATININE 0.97 mg/dl (0.60-1.20); GLUCOSE 172 mg/dl (70-99); SODIUM 137 mmol/L (136-145)
[2017-09-24] MEDS ORDERED: METO-648 PO (04:22)
[2017-09-24 04:37] LABS: POTASSIUM 2.8 mmol/L (3.5-5.1)
[2017-09-24] MEDS ORDERED: POTASSIUM CHLORIDE 20 MEQ TABCR PO STA (06:00)
[2017-09-24] MEDS ORDERED: BENZ1CAP90 PO (06:12)
[2017-09-24] MEDS ORDERED: PRED10TA PO (06:12)
--- NOTE | 2017-09-24 06:13 | EMERGENCY ROOM VISIT NOTE ---
History First contact with patient: 03:09 Chief Complaint: RESPIRATORY PROBLEMS Stated Complaint: ASTHMA Nursing Triage Summary: Increasing dyspnea for couple days, Hx asthma, very bad tonight. Did neb at home without relief. History of Present Illness The patient is a 52 year old female who presents to the Emergency Room with complaints of an asthma exacerbation. The patient states that she has had a flareup worsening over the past 3-4 days. She has a history of asthma and states this feels similar to previous flareups. She has been using her nebulizers at home and taking her Symbicort without relief. She did call her primary care providers impression printer provider yesterday and they prescribed her 3 days of prednisone. She states that her symptoms worsened over the past 12 hours. She has not been having relief with her home nebulizers. The patient does take tamoxifen and is an occasional smoker. She denies any recent travel. She denies history of blood clots. The patient does report she has been hospitalized for her asthma in the past. She has never been intubated. She states her asthma is typically triggered by the cold, and she does work outside during the night. Review of Systems A complete 10 point review of systems was reviewed with the patient with pertinent positives and negatives as per history of present illness. All else were negative. 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 (2) Shortness of breath Family History Hypertension Social History Smoking Status: Current Some Day Smoker Drug Use: none Marital Status: Occupation Status: employed Current/Historical Medications Scheduled Escitalopram (Lexapro), 10 MG PO QAM Hydrochlorothiazide (Hydrochlorothiazide), 25 MG PO QAM Losartan Potassium (Cozaar), 100 MG PO QAM Metoprolol Succinate (Toprol Xl), 200 MG PO DAILY Multiple Vitamin (Multi Vitamin Daily), 1 TAB PO QAM Naproxen (Aleve), 220 MG PO DAILY Potassium Chloride Microencaps (Potassium Chloride Er), 20 MEQ PO TID Prednisone (Prednisone), 20 MG PO UD Prednisone Tab (Prednisone), 10 MG PO UD Tamoxifen Citrate (Nolvadex), 20 MG PO QAM Vitamin E (Vitamin E 400 Iu), 400 INTER.UNIT PO QAM Scheduled PRN Albuterol Hfa (Ventolin Hfa), 2-4 PUFFS INH Q6H PRN for SOB/Wheezing Benzonatate (Tessalon Perles), 200 MG PO TID PRN for Cough Budesonide/Formoterol Fumarate (Symbicort 160/4.5 Inhaler ), 2 PUFFS INH BID PRN for Shortness of Breath Lorazepam (Ativan), 0.5 MG PO DAILY PRN for Anxiety Physical Exam Vital Signs Date Time Temp Pulse Resp B/P (MAP) Pulse Ox O2 Delivery O2 Flow Rate FiO2 09/24/17 06:28 148/91 09/24/17 06:27 93 25 96 09/24/17 06:12 90 23 97 09/24/17 06:01 144/93 09/24/17 05:57 95 19 97 09/24/17 05:42 94 21 97 09/24/17 05:31 126/83 09/24/17 05:27 94 21 96 09/24/17 05:22 89 20 97 09/24/17 05:07 95 18 98 09/24/17 05:01 144/79 09/24/17 04:37 89 20 99 Room Air 09/24/17 04:31 146/90 09/24/17 04:22 92 17 99 09/24/17 04:17 87 23 99 09/24/17 04:02 82 15 99 Nebulizer 09/24/17 04:01 141/82 09/24/17 03:47 85 16 99 09/24/17 03:32 84 22 100 Room Air 09/24/17 03:31 86 30 100 Room Air 09/24/17 03:21 157/84 09/24/17 03:06 36.4 87 30 153/93 98 Room Air Physical Exam VITALS: Vitals are noted on the nurse's note and reviewed by myself. Vital signs stable. GENERAL: This is a 52-year-old female, uncomfortable appearing, hyperventilating. SKIN: The skin was without rashes. EARS: External auditory canals clear, tympanic membranes pearly barrios without erythema or effusion bilaterally. EYES: Pupils equal round and reactive to light and accommodation. NOSE: Patent, turbinates without inflammation or discharge. MOUTH: Mucous membranes moist. Tonsils are not enlarged. Pharynx without erythema or exudate. NECK: Supple without nuchal rigidity. No lymphadenopathy. HEART: Regular rate and rhythm without murmurs gallops or rubs. LUNGS: Tachypneic, unable to speak in full sentences. Diminished breath sounds throughout. No retractions or accessory muscle use. NEURO: Patient was alert and oriented to person place and time. Medical Decision & Procedures ER Provider Diagnostic Interpretation: CHEST X-RAY: No acute cardiopulmonary process. Laboratory Results 09/24/17 03:28 Red Blood Count 3.87, Mean Corpuscular Volume 91.7, Mean Corpuscular Hemoglobin 31.0, Mean Corpuscular Hemoglobin Concent 33.8, Mean Platelet Volume 10.4, Neutrophils (%) (Auto) 74.7, Lymphocytes (%) (Auto) 18.7, Monocytes (%) (Auto) 6.0, Eosinophils (%) (Auto) 0.1, Basophils (%) (Auto) 0.1, Neutrophils # (Auto) 7.66, Lymphocytes # (Auto) 1.91, Monocytes # (Auto) 0.61, Eosinophils # (Auto) 0.01, Basophils # (Auto) 0.01 09/24/17 03:28 09/24/17 04:18 Test 09/24/17 03:28 09/24/17 04:18 09/24/17 04:22 White Blood Count 10.24 K/uL (4.8-10.8) Red Blood Count 3.87 M/uL (4.2-5.4) Hemoglobin 12.0 g/dL (12.0-16.0) Hematocrit 35.5 % (37-47) Mean Corpuscular Volume 91.7 fL (80-100) Mean Corpuscular Hemoglobin 31.0 pg (25-34) Mean Corpuscular Hemoglobin Concent 33.8 g/dl (32-36) Platelet Count 261 K/uL (130-400) Mean Platelet Volume 10.4 fL (7.4-10.4) Neutrophils (%) (Auto) 74.7 % Lymphocytes (%) (Auto) 18.7 % Monocytes (%) (Auto) 6.0 % Eosinophils (%) (Auto) 0.1 % Basophils (%) (Auto) 0.1 % Neutrophils # (Auto) 7.66 K/uL (1.4-6.5) Lymphocytes # (Auto) 1.91 K/uL (1.2-3.4) Monocytes # (Auto) 0.61 K/uL (0.11-0.59) Eosinophils # (Auto) 0.01 K/uL (0-0.5) Basophils # (Auto) 0.01 K/uL (0-0.2) RDW Standard Deviation 45.9 fL (36.4-46.3) RDW Coefficient of Variation 13.9 % (11.5-14.5) Immature Granulocyte % (Auto) 0.4 % Immature Granulocyte # (Auto) 0.04 K/uL (0.00-0.02) Anion Gap 15.0 mmol/L (3-11) Est Creatinine Clear Calc Drug Dose 83.5 ml/min Estimated GFR () 77.3 Estimated GFR (Non- 66.7 BUN/Creatinine Ratio 14.6 (10-20) Calcium Level 8.5 mg/dl (8.5-10.1) Troponin I < 0.015 ng/ml (0-0.045) Influenza Type A Antigen Neg for Influ A (NEG) Influenza Type B Antigen Neg for Influ B (NEG) Medications Administered Medications (Trade) Dose Ordered Sig/Samanta Route Start Time Stop Time Status Last Admin Dose Admin Albuterol/ Ipratropium (Duoneb) 12 ml ONE ONCE INH 09/24/17 03:15 09/24/17 03:17 DC 09/24/17 03:31 12 ML Methylprednisolone Sodium Succinate (Solu-Medrol IV) 125 mg NOW STAT IV 09/24/17 03:15 09/24/17 03:17 DC 09/24/17 03:30 125 MG Potassium Chloride (Klor-Con Tab) 40 meq NOW STAT PO 09/24/17 06:00 09/24/17 06:02 DC 09/24/17 06:29 40 MEQ Medical Decision Differential diagnosis includes asthma exacerbation, pneumonia, upper respiratory infection, pulmonary embolism, CHF, among others. The patient is a 52-year-old female who presents today complaining of an asthma exacerbation. Labs revealed no leukocytosis. Anion gap slightly elevated and CO2 slightly low, likely secondary to hyperventilation. Chest x-ray negative. EKG unremarkable, troponin negative. Patient's history not suspicious for PE. Patient has significant history of asthma. On initial evaluation she was in mild to moderate distress and was unable to speak in full sentences. She received an hour-long DuoNeb treatment as well as IV Solu-Medrol and had significant improvement. She stated that she felt much better and requested discharge home. She was observed for a little over one hour after this to ensure that her dyspnea did not return. Patient was reevaluated and was still feeling well. An ambulatory trial was performed and saturations remained normal. The patient will be placed on it for extended prednisone taper, which has worked well for her in the past. She does have nebulizer at home which she may use. She will need close follow-up with her primary care provider and was educated to return here she has any worsening shortness of breath or other new/ concerning symptoms. The patient's case was reviewed with Dr. Prater, ED attending physician, who agreed with my assessment and treatment plan. Based on the patient's presentation and work up, I feel the patient is stable for outpatient treatment. The patient was educated to return to the emergency department for any worsening of their current condition or new/concerning symptoms. She will follow up with her PCP. Medication Reconcilliation Current Medication List: was personally reviewed by me Blood Pressure Screening Patient's blood pressure: Normal blood pressure Impression Primary Impression: Asthma exacerbation Departure Information Dispostion Home / Self-Care Condition GOOD Prescriptions Benzonatate (Tessalon Perles) 200 Mg Cap 200 MG PO TID Y for Cough, #30 CAP Prov: Regina Collins .HARIS 09/24/17 Prednisone Tab (PREDNISONE) 10 Mg Tab 10 MG PO UD, #42 TAB 60 mg 2 days, 50 mg 2 days, 40 mg 2 days, 30 mg 2 days, 20 mg 2 days, 10 mg 2 days. Prov: Regina Collins PA-C 09/24/17 Referrals Jorge Alberto Bhardwaj M.D. (PCP) Patient Instructions My [facility] Additional Instructions Prednisone as prescribed. Tessalon Perles as needed for cough. Continue your nebulizers at home as needed for shortness of breath. Continue your inhalers. You will need close follow-up with your primary care provider this week for a recheck. You will also need to have your potassium rechecked. Return to the emergency department with worsening shortness of breath, fever, lightheadedness, or any other new/concerning symptoms.
[2017-09-24] MEDS ORDERED: POTASSIUM CHLORIDE 10 MEQ TABCR PO STA (06:14)
[2017-09-24 06:27] VITALS: PULSE 93; O2SAT 96
[2017-09-24 06:28] VITALS: BP 148/91
--- NOTE | 2017-09-24 06:36 | DIAGNOSTIC IMAGING REPORT ---
CHEST ONE VIEW PORTABLE HISTORY: 52 years-old Female sob acute shortness of breath COMPARISON: Chest radiograph 12/19/2016 TECHNIQUE: Portable upright AP view of the chest FINDINGS: Cardiomediastinal and hilar silhouettes are within normal limits. There is no pneumothorax, pleural effusion, focal airspace consolidation or overt pulmonary edema. Bones of the chest are grossly intact. Mild degenerative changes are seen within the spine and right shoulder. IMPRESSION: No acute cardiopulmonary process. The above report was generated using voice recognition software. It may contain grammatical, syntax or spelling errors. Electronically signed by: Sony Malcolm M.D. 09/24/2017 6:35 AM Dictated Date/Time: 09/24/2017 6:33 AM
== END 2017-09-24 06:32 | disposition home or self-care (01) ==
LOC: C.EDB 03:03
DX: J45.901 Unspecified asthma with (acute) exacerbation (principal); D05.92 Unspecified type of carcinoma in situ of left breast; F17.200 Nicotine dependence, unspecified, uncomplicated; Z82.49 Family history of ischemic heart disease and other diseases of the circulatory system

== ENCOUNTER 2024-11-13 15:02 | Observation (INO) ==
[2024-11-13] MEDS: SODIUM CHLORIDE 0.9% 1,000 ML IV SCH ×2 (16:03→20:22)
[2024-11-13] MEDS: diphenhydrAMINE 50 MG/ML VIAL IV STA (16:04)
[2024-11-13] MEDS: METOCLOPRAMIDE HCL INJ 5 MG/ML 2 ML VIAL IV ONE (16:04)
[2024-11-13 16:11] LABS: Basophils # (auto) 0.03 K/uL (0.00-0.20); Basophils % (auto) 0.4 %; Eosinophils # (auto) 0.06 K/uL (0.00-0.50); Eosinophils % (auto) 0.7 %; Hematocrit (blood only) 36.4 % (37.0-47.0); Hemoglobin 12.7 g/dl (12.0-16.0); Immature Granulocytes # (auto) 0.04 K/uL (0.01-0.20); Immature Granulocytes % (auto) 0.5 %; Lymphocytes # (auto) 2.28 K/uL (1.20-3.40); Lymphocytes % (auto) 27.3 %; Mean Corpuscular Hemoglobin 30.1 pg (25.0-34.0); Mean Corpuscular Hgb Conc 34.9 g/dL (32.0-36.0); Mean Corpuscular Volume 86.3 fL (80.0-100.0); Mean Platelet Volume 9.8 fL (9.4-12.4); Monocytes # (auto) 0.65 K/uL (0.11-0.59); Monocytes % (auto) 7.8 %; Neutrophils # (auto) 5.28 K/uL (1.40-6.50); Neutrophils % (auto) 63.3 %; Platelet Count 303 K/uL (130-400); RDW Coefficient of Variation 13.9 % (11.5-14.5); RDW Standard Deviation 43.5 fL (36.4-46.3); Red Blood Count 4.22 M/uL (4.20-5.40); White Blood Count 8.34 K/ul (4.8-10.8)
[2024-11-13 16:28] LABS: Albumin Level 4.5 gm/dl (3.4-5.0); BUN Creatinine Ratio 14.4 (10-20); Bilirubin Direct 0.1 mg/dl (0-0.2); Bilirubin,Total 0.4 mg/dl (0.2-1.0); Calcium 9.9 mg/dl (8.6-10.3); Creatinine Clr Calc Pharmacy 35.9 ml/min; Magnesium 2.1 mg/dl (1.7-2.4); Potassium 2.9 mmol/L (3.5-5.1); Total Protein 6.9 gm/dl (6.0-8.3)
[2024-11-13 16:35] LABS: Troponin I High Sensitivity 5.2 pg/ml (0-14)
--- NOTE | 2024-11-13 16:35 | XRay Report ---
Clinical History: Sepsis Technique: A frontal view of the chest was obtained Comparison is made to the prior examination dated 01/28/2021 Findings: There are no confluent pulmonary infiltrates. The heart size is within normal limits. No pleural effusion or pneumothorax is seen. There is no definite pulmonary nodule. There are new bilateral shoulder replacements Impression: No active disease Electronically signed by Michael Cazares 11-13-2024 4:34 PM
[2024-11-13 16:40] LABS: Base Excess VBG -1.1 mEq/L; HCO3 VBG 25 mmol/L; Oxygen Saturation VBG 62.7 %; PCO2 VBG 48 mmHg (38-50); PO2 VBG 41 mmHg; pH VBG 7.33 (7.36-7.41)
[2024-11-13 16:43] LABS: INR 0.9 (0.9-1.1); Partial Thromboplastin Ratio 0.8; Partial Thromboplastin Time 21 Seconds (21-31); Prothrombin Time 10.1 Seconds (9.0-12.0)
[2024-11-13 16:50] LABS: iSTAT Creatinine 2.3 mg/dl (0.6-1.3); iSTAT Hemoglobin 12.2 g/dl (12.0-16.0); iSTAT Ionized Calcium 1.05 mmol/l (1.12-1.32); iSTAT Potassium 3.5 mmol/L (3.3-5.0)
--- NOTE | 2024-11-13 17:36 | CT Scan Report ---
Clinical History: Headache Technique: Axial computed tomography images were obtained of the brain without intravenous contrast. Findings: There is cerebral atrophy, within expected limits for the patient's age. Areas of decreased attenuation are seen within the periventricular white matter, likely representing chronic small vessel ischemic disease. There is no definite sign of acute or old infarction. No intracranial hemorrhage is evident. No definite mass lesion is seen on this noncontrast examination. There is no midline shift or other form of herniation. No hydrocephalus is seen. No fracture is identified. The orbits and the visualized paranasal sinuses appear unremarkable. The mastoid air cells appear clear. Impression: 1. Cerebral atrophy and chronic small vessel ischemic disease 2. Otherwise unremarkable noncontrast CT of the brain Electronically signed by Michael Cazares 11-13-2024 5:35 PM
[2024-11-13 17:40] LABS: Adenovirus PCR Not Detected (NotDetected); Bordetella parapertussis PCR Not Detected (NotDetected); Bordetella pertussis PCR Not Detected (NotDetected); Chlamydia pneumoniae PCR Not Detected (NotDetected); Coronavirus 229E PCR Not Detected (NotDetected); Coronavirus CoV-2 (COVID19)PCR Not Detected (NotDetected); Coronavirus HKU1 PCR Not Detected (NotDetected); Coronavirus NL63 PCR Not Detected (NotDetected); Coronavirus OC43PCR DETECTED (NotDetected); Human Metapneumovirus PCR Not Detected (NotDetected); Influenza A PCR Not Detected (NotDetected); Influenza B PCR Not Detected (NotDetected); Mycoplasma pneumoniae PCR Not Detected (NotDetected); Parainfluenza Virus 1 PCR Not Detected (NotDetected); Parainfluenza Virus 2 PCR Not Detected (NotDetected); Parainfluenza Virus 3 PCR Not Detected (NotDetected); Parainfluenza Virus 4 PCR Not Detected (NotDetected); Respiratory Syncytial VirusPCR Not Detected (NotDetected); Rhinovirus/Enterovirus PCR Not Detected (NotDetected)
--- NOTE | 2024-11-13 17:40 | CT Scan Report ---
Clinical History: Nausea and vomiting Technique: Axial computed tomography images were obtained of the abdomen and pelvis without intravenous contrast. Comparison is made to the chest CT dated 07/18/2023 Findings: The liver is overall of normal size, attenuation, and contour with no sign of cirrhosis or significant fatty infiltration. No definite liver mass lesion is seen on this noncontrast study. The gallbladder appears unremarkable. No bile duct dilatation is noted. The spleen is of normal size. No focal splenic lesion is evident. The pancreas appears normal with no sign of acute or chronic pancreatitis and no mass lesion noted. The pancreatic duct is of normal caliber. The adrenal glands appear unremarkable. No renal or proximal ureteral calculi are seen. There is no hydronephrosis or perinephric stranding. No definite renal mass lesion is identified. The aorta is of normal caliber. No abdominal adenopathy is seen. The stomach appears normal. There is no sign of small bowel obstruction. There is mild colonic diverticulosis without evidence of diverticulitis. No free intraperitoneal fluid or air is identified. There is no sign of appendicitis No definite distal ureteral or bladder calculi are seen. There are numerous foci of calcification within the pelvis, likely representing phleboliths. The bladder is decompressed. The iliac arteries are of normal caliber. No pelvic adenopathy is noted. The uterus has been removed The lungs bases appear clear. A left breast implant is again seen Lumbar degenerative disc disease is seen. There is bilateral hip osteoarthritis. No fracture is identified. No focal osseous lesion is seen Impression: Diverticulosis without evidence of diverticulitis Electronically signed by Michael Cazares 11-13-2024 5:40 PM
[2024-11-13] MEDS: SODIUM CHLORIDE 0.9% 1,000 ML IV ONE (17:42)
--- NOTE | 2024-11-13 19:22 | History & Physical Report ---
Date of Service November 13, 2024 Assessment & Plan (1) Syncope: Plan: witnessed [facility] episode [facility], 1 minute, no headstrike EKG showed NSR Lactate elevated 3.2 -> resolved after 2L NSS to 1.5 VBG mildly acidotic - 7.33/48/[address] head negative echo ordered IV fluids overnight - 2L NSS gentle resuscitation + promote oral hydration orthostatics in AM after fluids monitor on telemetry (2) Hypotension: Plan: as low as 88/55 in ED -> 111/64 after 2L NSS associated elevated lactate improved as above blood cultures sent hover low suspicion for infection holding HCTZ with BEBA and olmesartan continue diltiazem with holding precautions (3) Acute kidney injury: Plan: suspect secondary to dehydration with diarrhea and medication induced - on chronic naproxen and HCTZ Cr increased from 0.76 to 2.09 BUN elevated to 30 indicating pre-renal cause FENa = 1.2% = indeterminate BMP recheck at 1230 and with AM labs Hold nephrotoxic agents - NSAIDs and HCTZ promote oral hydration and IV fluid resuscitation with 2L NSS bolus in ED + 1L NSS gentle resus overnight (4) Hypokalemia: Plan: chronic 2/2 to HCTZ use holding HCTZ K+ 2.9 on admission 30 MeQ IV + 40 Meq PO ordered trend BMP Mg stable, 2.1 (5) Acute diarrhea: Plan: 4 episodes / Contributing to dehydration and symptoms above Stool cultures ordered (6) Coronavirus infection: Plan: coronavirus OC 43 only symptomatic with mild rhinorrhea CXR negative Tylenol as needed Isolation precautions Promote oral hydration (7) Asymptomatic bacteriuria: Plan: UA showing trace protein, 6-10 epithelial cells, 1+ bacteria, hyaline casts Asymptomatic Likely contaminant with epithelial cells Follow urine cultures Plan Patient is a 59-year-old female with a past medical history of hypertension, depression, asthma, vertigo, lumbar pain, and breast cancer s/p mastectomy in 2016. She presents due to a witnessed syncopal episode. In ED she was found to have an BEBA, hypokalemia, and coronavirus OC43. She is being admitted for syncopal workup including an echocardiogram and treatment for BEBA with IV f luids. Chronic stable diagnoses: Asthma - continue inhaler as needed Vertigo - continue meclizine as needed Chronic lumbar pain - holding naproxen, Tylenol as needed Breast cancer - s/p mastectomy 2016, stable Depression - continue cariprazine and escitalopram HLD - continue statin migraines - continue topiramate VTE ppx: SCDs - low risk Diet: regular Dispo: med/tele Admission and Anticipated Discharge Date Admission Date: 11/13/24 History of Present Illness Chief Complaint: illness Primary Care Provider: Chelsy Mccray MD Patient is a 59-year-old female with a past medical history of hypertension, depression, asthma, vertigo, lumbar pain, and breast cancer s/p mastectomy in 2016. She presents due to a witnessed syncopal episode. In ED she was found to have an BEBA, hypokalemia, and coronavirus OC43. She is being admitted for syncopal workup including an echocardiogram and treatment for BEBA with IV fluids. Patient seen at bedside. She stated that she was taking her father to [facility] today and had a syncopal episode while in the waiting room. This was witnessed by staff and lasted approximately 1 minute. Patient stated she felt dizzy prior to and it was coming. She denies chest pain, palpitations, dyspnea prior to the episode. She was sitting in a chair and did not hit her head. she stated after the episode she vomited twice, she received Zofran en route on EMS, Benadryl and Reglan in ED; she is feeling much better now. She stated she did have 2 large bowel movements this morning prior to picking up her father, at the hospital before transfer she had 2 additional episodes of diarrhea today. She endorses mild rhinorrhea for the past few days. Patient denies fever, chills, headache, sore throat, cough, sputum production, dyspnea, dyspnea on exertion, chest pain, abdominal pain, dysuria, hematuria. She also has chronic bilateral lower extremity edema which is not present on exam. She has had good p.o. intake, ate breakfast prior to episode. She does have a history of tobacco use, smokes 3 to 4 cigarettes/day since she was 15 years old. Does not have significant alcohol use history. Denies past history of DM, VTE, no recurrence of cancer. She denies cardiac history, no murmurs, arrhythmias, CAD. She does not use oxygen at baseline, no CPAP/BiPAP. She did take her home medications this morning. She only takes meclizine as needed for vertigo, has not taken in a while. She wishes to be full code at this time. Allergies Allergy/AdvReac Type Severity Reaction Status Date / Time NEMANUEL Inhibitors AdvReac Mild Cough Verified 10/07/24 09:03 bupropion [From Wellbutrin] AdvReac Mild Dizziness Verified 10/07/24 09:03 phentermine AdvReac Mild dizz Verified 10/20/24 10:48 simvastatin AdvReac myalgias Verified 10/07/24 09:03 Home Medications Medication Instructions Recorded Confirmed Type albuterol sulfate 2.5 mg/3 mL 2.5 mg (3 mL) inhalation Q6H PRN 09/11/20 11/13/24 Rx (0.083 %) solution for nebulization shortness of breath or wheezing #75 mL multivitamin 1 tab PO QAM 01/04/21 11/13/24 History naproxen sodium 220 mg capsule 220 mg PO QAM 12/26/21 11/13/24 History (Aleve) albuterol sulfate 90 mcg/actuation 2 puff inhalation Q6H PRN 07/07/23 11/13/24 Rx aerosol inhaler (Ventolin HFA) shortness of breath or wheezing #8.5 grams meclizine 25 mg tablet 25 mg PO TID PRN dizziness #90 tabs 02/18/24 11/13/24 Rx rosuvastatin 5 mg tablet 5 mg PO DAILY 30 days #30 tabs 07/29/24 11/13/24 Rx escitalopram oxalate 20 mg tablet 20 mg PO DAILY 09/17/24 11/13/24 History diltiazem HCl 360 mg capsule,24 360 mg PO DAILY 90 days #90 caps 10/07/24 11/13/24 Rx hr,extended release topiramate 50 mg tablet (Topamax) 50 mg PO DAILY 30 days #30 tabs 10/20/24 11/13/24 Rx cariprazine 1.5 mg capsule 1.5 mg PO Q OTHER DAY #15 caps 11/05/24 11/13/24 Rx (Vraylar) olmesartan 40 mg tablet 40 mg PO DAILY #30 tabs 11/14/24 Rx ondansetron 4 mg disintegrating 4 mg PO Q6H PRN nausea and 11/14/24 Rx tablet vomiting #10 tabs Past Med/Surg History Problem List (Updated 11/14/24 @ 00:33 by Aaron Jones MD) BEBA (acute kidney injury) (Acute) Acute diarrhea Asymptomatic bacteriuria Hypotension Coronavirus infection Acute kidney injury Syncope History of total abdominal hysterectomy Depression Snoring Hypersomnia Mild sleep apnea Lumbar radicular pain Cigarette smoker HLD (hyperlipidemia) Hypokalemia Bronchitis (Acute) Asthma BMI 40.0-44.9, adult Healed perforation of ear drum BPPV (benign paroxysmal positional vertigo) Sensorineural hearing loss (SNHL) of both ears Status post replacement of right shoulder joint (~12/2021) DJD (degenerative joint disease) of knee (Acute 12/09/13) Hypertension (Chronic) Anxiety Thumb tendonitis Status post shoulder replacement Cataracts, bilateral Trochanteric bursitis of right hip Chronic low back pain Sacroiliitis Medical History GERD (gastroesophageal reflux disease) rare with spicy foods Hx of breast cancer s/p L mastectomy with reconstruction, no chemo or XRT (LEFT ARM RESTRICTION) Acute otitis media of left ear with perforated tympanic membrane Osteoarthritis Hypertension controlled, stable per pt Chronic obstructive pulmonary disease Using albuterol inhaler PRN, more when colder weather, using on avg few times per week-last used several weeks ago Mid back pain on right side Surgical History History of shoulder replacement bilateral History of cataract surgery RT/LEFT History of left shoulder replacement 02/22/2021: Grade 2 view, MAC#3, ETT#7.5 + PNB. No postop issues per anesthesia progress note. Nausea and vomiting after administration of anesthetic agent requests scop patch as Rx in past H/O breast biopsy History of colonoscopy History of tooth extraction History of hysterectomy History of total knee arthroplasty RT/LEFT Status post left mastectomy 2015 (with implant-based breast reconstruction) Family History Sister Breast cancer Lung cancer Aunt Breast cancer Mother Family history of diabetes mellitus Father Family history of diabetes mellitus Other No family history of adverse response to anesthesia Denies family history of Ovarian cancer Prostate cancer Myocardial infarction Colorectal cancer Social History Smoking Status: Current every day smoker Tobacco Type: Cigarettes Age Started Using Tobacco: 15; packs per day: 0.5; Cigarettes Per Day: 1/2 pack per day; Second Hand Exposure: No; Do You Dip or Chew Tobacco: No; Hx Alcohol Use: No Hx Substance Use: No Preferred Language: Haitian Communication Ability: Effective Hearing Ability: Normal Wire Coater Required: No Beliefs That Will Affect Care: None marital status: Current Living Situation: Spouse current occupational status: retired Feels Safe at Home: Yes Childhood Exposure to Second-Hand Smoke: No Diet: regular caffeine: Yes Dental Care, Regularly: Yes Physical Activity Frequency: 1-2 Times per Week Seatbelt Use: always Sunscreen Use: Yes Assistive Devices: None Review of Systems Review of Systems: see HPI Physical Exam Physical Exam: The patient is awake, alert and oriented 3, well developed and well nourished, normocephalic and atraumatic, in no acute distress. Non-toxic appearing. HEENT- EOMI, mucous membranes moist. Hearing grossly intact. Heart-normal S1 and S2. No murmurs, rubs or gallops. Lungs-clear bilaterally, no respiratory distress, no accessory muscle use. Abdomen-normal bowel sounds and soft. No ascites noted. Non-tender. Extremities- no clubbing, cyanosis, or edema. Rheumatologic-normal range of motion. Psychiatric-normal affect. Results & Data Results & Data Vital Signs (Past 12 Hours) Vital Signs Temp Pulse Pulse Resp BP BP Pulse Ox 11/13/24 18:57 80 17 111/64 11/13/24 18:30 81 15 100/70 11/13/24 18:25 75 14 100/70 97 11/13/24 18:15 80 14 103/62 95 11/13/24 17:55 75 15 93/57 L 99 11/13/24 17:51 70 18 103/51 L 11/13/24 17:45 73 18 95/56 L 92 11/13/24 17:41 109/82 11/13/24 17:35 71 19 104/75 97 11/13/24 17:26 72 20 111/62 94 11/13/24 17:00 97/58 L 11/13/24 16:57 16 11/13/24 16:55 88/55 L 98 11/13/24 16:55 88/55 L 11/13/24 16:54 70 20 96 11/13/24 16:50 94/51 L 11/13/24 16:50 94/51 L 11/13/24 16:48 72 15 97 11/13/24 16:46 87/57 L 11/13/24 16:46 87/57 L 11/13/24 16:46 87/57 L 11/13/24 16:45 67 17 11/13/24 16:42 69 16 81/63 L 11/13/24 16:33 77 24 99/57 L 95 11/13/24 16:09 72 18 83/54 L 95 11/13/24 16:07 98 11/13/24 15:57 62 11 L 84/53 L 97 11/13/24 15:54 95/50 L 99 11/13/24 15:52 66 14 95/50 L 98 11/13/24 15:42 64 22 64/42 L 99 11/13/24 15:31 61 11/13/24 15:20 36.4 C L 62 12 86/52 L 98 O2 Del Method 11/13/24 18:57 11/13/24 18:30 11/13/24 18:25 11/13/24 18:15 11/13/24 17:55 11/13/24 17:51 11/13/24 17:45 11/13/24 17:41 11/13/24 17:35 11/13/24 17:26 11/13/24 17:00 11/13/24 16:57 11/13/24 16:55 11/13/24 16:55 11/13/24 16:54 11/13/24 16:50 11/13/24 16:50 11/13/24 16:48 11/13/24 16:46 11/13/24 16:46 11/13/24 16:46 11/13/24 16:45 11/13/24 16:42 11/13/24 16:33 11/13/24 16:09 11/13/24 16:07 Room Air 11/13/24 15:57 11/13/24 15:54 11/13/24 15:52 11/13/24 15:42 11/13/24 15:31 11/13/24 15:20 Room Air Laboratory Results Reviewed CBC, PT/INR, VBG, CMP, bio fire, UA, lactate Diagnostic Findings CXR, head CT, AP CT Medications Administered ED: 2L NSS, reglan, Benadryl ECG Additional Comments: NSR Code Status & VTE Plan Code Status full VTE Prophylaxis Plan VTE Prophylaxis will be ordered: Yes Supervising Physician Co-Signing Physician Notes Attending addendum: I have physically seen this patient, have supervised the JC's activities, and agree with the H&P unless as otherwise noted. Assessment and Plan: The patient is a 59-year-old female with a past medical history including hypertension, depression, asthma, vertigo, chronic lumbar pain, breast cancer status postmastectomy 2016. She presents to the emergency department with a witnessed syncopal episode, and was found to have BEBA, hypokalemia and coronavirus OC 43 infection. Syncope and collapse- Witnessed in the waiting room at [facility] EKG shows normal sinus rhythm with no acute ST-T changes Troponin is negative CT head negative Telemetry admission Orthostatic vital signs Symptoms improved with 2 L normal saline IV fluid bolus and will continue with promoting oral hydration Hypotension- Blood pressure at lowest was 88/55, improved to 111/60 2:04 liter normal saline bolus Hold HCTZ and telmisartan Continue diltiazem with hold parameters Acute kidney injury- Creatinine 2.09, with base 0.76 Holding HCTZ and olmesartan as noted, rehydrated IV fluids as noted, and will follow laboratories in a.m. Hold naproxen in addition to other medications as noted Hypokalemia- Secondary to HCTZ use IV for replacement or replacement as noted and recheck laboratories in a.m. Diarrheal episode Likely secondary to coronavirus OC 43 Treat symptomatically PG Care Time/CCT Total # of Minutes Spent Total Time Spent with Patient: Total time spent is greater than 50% in coordination of care (as documented) at patient's floor/unit and/or counseling patient: Coding Level of Care Code 87591 INT INP/OBS CARE 3/75MIN Diagnoses Syncope R55 Hypotension I95.9 Acute kidney injury N17.9 Hypokalemia E87.6 Acute diarrhea R19.7 Coronavirus infection B34.2 Asymptomatic bacteriuria R82.71
[2024-11-13 19:33] LABS: Appearance Urine Clear (Clear); Bacteria Urine Automated 1+ (None Seen); Bilirubin Urine Negative (Negative); Blood Urine Negative (Negative); Cast Urine Automated >20 /lpf (0-2); Color Urine Yellow; Glucose Urine UA Negative (Negative); Granular Casts Urine Present /lpf (None Prsent); Hyaline Casts Urine Present /lpf (None Presnt); Ketones Urine Negative (Negative); Leukocyte Esterase Urine Negative (Negative); Nitrite Urine Negative (Negative); Protein Urine Trace (Negative); RBC Urine Automated 0-2 /hpf (0-2); Specific Gravity Urine 1.016 (1.000-1.030); Urobilinogen Urine Negative (Negative); WBC Urine Automated 0-5 /hpf (0-5)
[2024-11-13] MEDS: POTASSIUM CHLORIDE CRTAB 20 MEQ TABCR PO STA (20:14)
[2024-11-13] MEDS: POTASSIUM CHLORIDE / WTR 10 MEQ/100 ML PLCT IV SCH (20:23)
--- NOTE | 2024-11-13 21:43 | Electrocardiogram Report ---
Test Reason : Blood Pressure : */* mmHG Vent. Rate : 66 BPM Atrial Rate : 66 BPM P-R Int : 206 ms QRS Dur : 74 ms QT Int : 426 ms P-R-T Axes : 51 -20 40 degrees QTcB Int : 446 ms Normal sinus rhythm Low voltage QRS Borderline ECG When compared with ECG of 28-Jan-2021 11:10, No significant change was found Confirmed by Herve Maloney ([id number]) on 11/13/2024 9:43:08 PM Referred By: Confirmed By: Herve Maloney
[2024-11-13] MEDS ORDERED: ACETAMINOPHEN 325 MG TAB PO PRN (22:09)
[2024-11-13] MEDS ORDERED: MECLIZINE HCL 25 MG TAB PO PRN (22:09)
[2024-11-13] MEDS ORDERED: ALBUTEROL HFA 8 GM INHALER INH PRN (22:09)
[2024-11-13] MEDS ORDERED: ONDANSETRON INJ 2 MG/ML 2 ML VIAL IV PRN (22:09)
[2024-11-13 22:47] LABS: Creatinine Urine Random 109.2 mg/dl
--- NOTE | 2024-11-14 00:33 | Emergency Department Note ---
History of Present Illness General Chief complaint: Illness Stated complaint: ILLNESS, SYNCOPE Time Seen by Provider: 11/13/24 15:47 History of Present Illness Provider complaint: Diarrhea syncope Onset (ago): hour(s) 1 59-year-old female presents emergency department for diarrhea and syncope. Patient reports that earlier today she was with her father at shelter and started developing diarrhea. She reports she had a syncopal episode. Patient reports she does not feel well and is having headache as well as myalgias. No fevers but does report chills. No cough. Mild congestion. Patient does report sick contacts. Home Medications Medication Instructions Recorded Confirmed Type albuterol sulfate 2.5 mg/3 mL 2.5 mg (3 mL) inhalation Q6H PRN 09/11/20 11/13/24 Rx (0.083 %) solution for nebulization shortness of breath or wheezing #75 mL multivitamin 1 tab PO QAM 01/04/21 11/13/24 History naproxen sodium 220 mg capsule 220 mg PO QAM 12/26/21 11/13/24 History (Aleve) albuterol sulfate 90 mcg/actuation 2 puff inhalation Q6H PRN 07/07/23 11/13/24 Rx aerosol inhaler (Ventolin HFA) shortness of breath or wheezing #8.5 grams olmesartan 40 1 tab PO DAILY #90 tabs 12/04/23 11/13/24 Rx mg-hydrochlorothiazide 25 mg tablet meclizine 25 mg tablet 25 mg PO TID PRN dizziness #90 tabs 02/18/24 11/13/24 Rx rosuvastatin 5 mg tablet 5 mg PO DAILY 30 days #30 tabs 07/29/24 11/13/24 Rx escitalopram oxalate 20 mg tablet 20 mg PO DAILY 09/17/24 11/13/24 History diltiazem HCl 360 mg capsule,24 360 mg PO DAILY 90 days #90 caps 10/07/24 11/13/24 Rx hr,extended release topiramate 50 mg tablet (Topamax) 50 mg PO DAILY 30 days #30 tabs 10/20/24 11/13/24 Rx cariprazine 1.5 mg capsule 1.5 mg PO Q OTHER DAY #15 caps 11/05/24 11/13/24 Rx (Vraylar) Allergies Allergy/AdvReac Type Severity Reaction Status Date / Time ENMANUEL Inhibitors AdvReac Mild Cough Verified 10/07/24 09:03 bupropion [From Wellbutrin] AdvReac Mild Dizziness Verified 10/07/24 09:03 phentermine AdvReac Mild dizz Verified 10/20/24 10:48 simvastatin AdvReac myalgias Verified 10/07/24 09:03 Past Med/Surg History Problem List (Updated 11/14/24 @ 00:33 by Aaron Jones MD) BEBA (acute kidney injury) (Acute) Acute diarrhea Asymptomatic bacteriuria Hypotension Coronavirus infection Acute kidney injury Syncope History of total abdominal hysterectomy Depression Snoring Hypersomnia Mild sleep apnea Lumbar radicular pain Cigarette smoker HLD (hyperlipidemia) Hypokalemia Bronchitis (Acute) Asthma BMI 40.0-44.9, adult Healed perforation of ear drum BPPV (benign paroxysmal positional vertigo) Sensorineural hearing loss (SNHL) of both ears Status post replacement of right shoulder joint (~12/2021) DJD (degenerative joint disease) of knee (Acute 12/09/13) Hypertension (Chronic) Anxiety Thumb tendonitis Status post shoulder replacement Cataracts, bilateral Trochanteric bursitis of right hip Chronic low back pain Sacroiliitis Medical History GERD (gastroesophageal reflux disease) rare with spicy foods Hx of breast cancer s/p L mastectomy with reconstruction, no chemo or XRT (LEFT ARM RESTRICTION) Acute otitis media of left ear with perforated tympanic membrane Osteoarthritis Hypertension controlled, stable per pt Chronic obstructive pulmonary disease Using albuterol inhaler PRN, more when colder weather, using on avg few times per week-last used several weeks ago Mid back pain on right side Surgical History History of shoulder replacement bilateral History of cataract surgery RT/LEFT History of left shoulder replacement 02/22/2021: Grade 2 view, MAC#3, ETT#7.5 + PNB. No postop issues per anesthesia progress note. Nausea and vomiting after administration of anesthetic agent requests scop patch as Rx in past H/O breast biopsy History of colonoscopy History of tooth extraction History of hysterectomy History of total knee arthroplasty RT/LEFT Status post left mastectomy 2015 (with implant-based breast reconstruction) Family History Sister Breast cancer Lung cancer Aunt Breast cancer Mother Family history of diabetes mellitus Father Family history of diabetes mellitus Other No family history of adverse response to anesthesia Denies family history of Ovarian cancer Prostate cancer Myocardial infarction Colorectal cancer Social History Smoking Status: Current every day smoker Tobacco Type: Cigarettes Age Started Using Tobacco: 15; packs per day: 0.5; Cigarettes Per Day: 1/2 pack per day; Second Hand Exposure: No; Do You Dip or Chew Tobacco: No; Hx Alcohol Use: No Hx Substance Use: No Preferred Language: [place]ian Communication Ability: Effective Hearing Ability: Normal Technical Planner Required: No Beliefs That Will Affect Care: None marital status: Current Living Situation: Spouse current occupational status: retired Other Information That Helps Us Care for You: No Feels Safe at Home: Yes Safety Concerns: Feels Safe At This Time Childhood Exposure to Second-Hand Smoke: No Diet: regular caffeine: Yes Dental Care, Regularly: Yes Physical Activity Frequency: 1-2 Times per Week Seatbelt Use: always Sunscreen Use: Yes Assistive Devices: Glasses Physical Exam Vital Signs Vital Signs - 24 hr 11/13/24 15:20 11/13/24 15:31 11/13/24 15:42 Temperature 36.4 C L Temperature Source Oral Pulse Rate 62 61 64 Pulse Rate [Apical] Pulse Rate from SpO2 Sensor 68 Pulse Rhythm Regular Pulse Strength Normal Respiratory Rate 12 22 Respiratory Effort / Characteristics Non-Labored Spontaneous Respiratory Depth Normal Respiratory Pattern Regular Blood Pressure 86/52 L 64/42 L Blood Pressure [Left Arm] Blood Pressure Mean 63 49 Blood Pressure Mean [Left Arm] Blood Pressure Position Lying Pulse Oximetry 98 99 Oxygen Delivery Method Room Air Sepsis Recent Fever Within 48 Hours No Sepsis New/Unexplained Change in Mental Status Yes Sepsis Action Taken by Nursing Physician Notified 11/13/24 15:52 11/13/24 15:54 11/13/24 15:57 Temperature Temperature Source Pulse Rate 66 62 Pulse Rate [Apical] Pulse Rate from SpO2 Sensor 66 67 63 Pulse Rhythm Pulse Strength Respiratory Rate 14 11 L Respiratory Effort / Characteristics Respiratory Depth Respiratory Pattern Blood Pressure 95/50 L 95/50 L 84/53 L Blood Pressure [Left Arm] Blood Pressure Mean 67 65 63 Blood Pressure Mean [Left Arm] Blood Pressure Position Pulse Oximetry 98 99 97 Oxygen Delivery Method Sepsis Recent Fever Within 48 Hours Sepsis New/Unexplained Change in Mental Status Sepsis Action Taken by Nursing 11/13/24 16:07 11/13/24 16:09 11/13/24 16:33 Temperature Temperature Source Pulse Rate 72 77 Pulse Rate [Apical] Pulse Rate from SpO2 Sensor 65 64 Pulse Rhythm Pulse Strength Respiratory Rate 18 24 Respiratory Effort / Characteristics Respiratory Depth Respiratory Pattern Blood Pressure 83/54 L 99/57 L Blood Pressure [Left Arm] Blood Pressure Mean 63 71 Blood Pressure Mean [Left Arm] Blood Pressure Position Pulse Oximetry 98 95 95 Oxygen Delivery Method Room Air Sepsis Recent Fever Within 48 Hours Sepsis New/Unexplained Change in Mental Status Sepsis Action Taken by Nursing 11/13/24 16:42 11/13/24 16:45 11/13/24 16:46 Temperature Temperature Source Pulse Rate 69 67 Pulse Rate [Apical] Pulse Rate from SpO2 Sensor Pulse Rhythm Pulse Strength Respiratory Rate 16 17 Respiratory Effort / Characteristics Respiratory Depth Respiratory Pattern Blood Pressure 81/63 L 87/57 L Blood Pressure [Left Arm] Blood Pressure Mean 69 63 Blood Pressure Mean [Left Arm] Blood Pressure Position Pulse Oximetry Oxygen Delivery Method Sepsis Recent Fever Within 48 Hours Sepsis New/Unexplained Change in Mental Status Sepsis Action Taken by Nursing 11/13/24 16:46 11/13/24 16:46 11/13/24 16:48 Temperature Temperature Source Pulse Rate 72 Pulse Rate [Apical] Pulse Rate from SpO2 Sensor Pulse Rhythm Pulse Strength Respiratory Rate 15 Respiratory Effort / Characteristics Respiratory Depth Respiratory Pattern Blood Pressure 87/57 L 87/57 L Blood Pressure [Left Arm] Blood Pressure Mean 63 63 Blood Pressure Mean [Left Arm] Blood Pressure Position Pulse Oximetry 97 Oxygen Delivery Method Sepsis Recent Fever Within 48 Hours Sepsis New/Unexplained Change in Mental Status Sepsis Action Taken by Nursing 11/13/24 16:50 11/13/24 16:50 11/13/24 16:54 Temperature Temperature Source Pulse Rate 70 Pulse Rate [Apical] Pulse Rate from SpO2 Sensor Pulse Rhythm Pulse Strength Respiratory Rate 20 Respiratory Effort / Characteristics Respiratory Depth Respiratory Pattern Blood Pressure 94/51 L 94/51 L Blood Pressure [Left Arm] Blood Pressure Mean 72 72 Blood Pressure Mean [Left Arm] Blood Pressure Position Pulse Oximetry 96 Oxygen Delivery Method Sepsis Recent Fever Within 48 Hours Sepsis New/Unexplained Change in Mental Status Sepsis Action Taken by Nursing 11/13/24 16:55 11/13/24 16:55 11/13/24 16:57 Temperature Temperature Source Pulse Rate Pulse Rate [Apical] Pulse Rate from SpO2 Sensor Pulse Rhythm Pulse Strength Respiratory Rate 16 Respiratory Effort / Characteristics Respiratory Depth Respiratory Pattern Blood Pressure 88/55 L 88/55 L Blood Pressure [Left Arm] Blood Pressure Mean 69 69 Blood Pressure Mean [Left Arm] Blood Pressure Position Pulse Oximetry 98 Oxygen Delivery Method Sepsis Recent Fever Within 48 Hours Sepsis New/Unexplained Change in Mental Status Sepsis Action Taken by Nursing 11/13/24 17:00 11/13/24 17:26 11/13/24 17:35 Temperature Temperature Source Pulse Rate 71 Pulse Rate [Apical] 72 Pulse Rate from SpO2 Sensor 71 Pulse Rhythm Pulse Strength Respiratory Rate 20 19 Respiratory Effort / Characteristics Respiratory Depth Respiratory Pattern Blood Pressure 97/58 L 104/75 Blood Pressure [Left Arm] 111/62 Blood Pressure Mean 71 80 Blood Pressure Mean [Left Arm] 78 Blood Pressure Position Pulse Oximetry 94 97 Oxygen Delivery Method Sepsis Recent Fever Within 48 Hours Sepsis New/Unexplained Change in Mental Status Sepsis Action Taken by Nursing 11/13/24 17:41 11/13/24 17:45 11/13/24 17:51 Temperature Temperature Source Pulse Rate 73 70 Pulse Rate [Apical] Pulse Rate from SpO2 Sensor 66 Pulse Rhythm Pulse Strength Respiratory Rate 18 18 Respiratory Effort / Characteristics Respiratory Depth Respiratory Pattern Blood Pressure 109/82 95/56 L 103/51 L Blood Pressure [Left Arm] Blood Pressure Mean 92 78 68 Blood Pressure Mean [Left Arm] Blood Pressure Position Pulse Oximetry 92 Oxygen Delivery Method Sepsis Recent Fever Within 48 Hours Sepsis New/Unexplained Change in Mental Status Sepsis Action Taken by Nursing 11/13/24 17:55 11/13/24 18:15 11/13/24 18:25 Temperature Temperature Source Pulse Rate 75 80 75 Pulse Rate [Apical] Pulse Rate from SpO2 Sensor 77 75 73 Pulse Rhythm Pulse Strength Respiratory Rate 15 14 14 Respiratory Effort / Characteristics Respiratory Depth Respiratory Pattern Blood Pressure 93/57 L 103/62 100/70 Blood Pressure [Left Arm] Blood Pressure Mean 69 75 76 Blood Pressure Mean [Left Arm] Blood Pressure Position Pulse Oximetry 99 95 97 Oxygen Delivery Method Sepsis Recent Fever Within 48 Hours Sepsis New/Unexplained Change in Mental Status Sepsis Action Taken by Nursing 11/13/24 18:30 11/13/24 18:57 11/13/24 19:12 Temperature Temperature Source Pulse Rate 81 80 85 Pulse Rate [Apical] Pulse Rate from SpO2 Sensor Pulse Rhythm Pulse Strength Respiratory Rate 15 17 15 Respiratory Effort / Characteristics Respiratory Depth Respiratory Pattern Blood Pressure 100/70 111/64 109/85 Blood Pressure [Left Arm] Blood Pressure Mean 80 79 93 Blood Pressure Mean [Left Arm] Blood Pressure Position Pulse Oximetry Oxygen Delivery Method Sepsis Recent Fever Within 48 Hours Sepsis New/Unexplained Change in Mental Status Sepsis Action Taken by Nursing 11/13/24 19:23 11/13/24 19:25 11/13/24 19:30 Temperature Temperature Source Pulse Rate 79 81 Pulse Rate [Apical] Pulse Rate from SpO2 Sensor Pulse Rhythm Pulse Strength Respiratory Rate 14 Respiratory Effort / Characteristics Respiratory Depth Respiratory Pattern Blood Pressure 95/64 L 97/64 L Blood Pressure [Left Arm] Blood Pressure Mean 70 75 Blood Pressure Mean [Left Arm] Blood Pressure Position Pulse Oximetry Oxygen Delivery Method Sepsis Recent Fever Within 48 Hours Sepsis New/Unexplained Change in Mental Status Sepsis Action Taken by Nursing 11/13/24 19:36 Temperature Temperature Source Pulse Rate Pulse Rate [Apical] Pulse Rate from SpO2 Sensor Pulse Rhythm Pulse Strength Respiratory Rate Respiratory Effort / Characteristics Respiratory Depth Respiratory Pattern Blood Pressure 93/79 L Blood Pressure [Left Arm] Blood Pressure Mean 83 Blood Pressure Mean [Left Arm] Blood Pressure Position Pulse Oximetry Oxygen Delivery Method Sepsis Recent Fever Within 48 Hours Sepsis New/Unexplained Change in Mental Status Sepsis Action Taken by Nursing Physical Exam HENT: Exam performed. -Head: Normocephalic and atraumatic. -Right Ear: External ear normal. No mastoid erythema -Left Ear: External ear normal. No mastoid erythema -Mouth/Throat: The oropharynx is clear and moist. No trismus in the jaw. No dental abscesses or uvula swelling. No oropharyngeal exudate or tonsillar abscesses. EYES: Conjunctivae and EOM are normal. Pupils are equal, round, and reactive to light. Right eye exhibits no discharge. Left eye exhibits no discharge. No scleral icterus. NECK: Normal range of motion. Neck supple. No JVD present. No rigidity. No tracheal deviation and normal range of motion present. CV: Tachycardic rate, regular rhythm, normal heart sounds and intact distal pulses. There is no peripheral edema. Palpable radial pulses bue. PULM/CHEST: Effort normal and breath sounds normal. No respiratory distress. No stridor. She has no wheezes. She has no rales. -Chest Wall: She exhibits no tenderness. ABD: The abdomen is soft. There is no tenderness. There is no rebound, no guarding MUSC/SKEL: Normal range of motion. There is no peripheral edema, tenderness or deformity. LYMPH: No cervical adenopathy. NEURO: She is alert and oriented to person, place, and time. She has normal strength. No cranial nerve deficit or sensory deficit. Coordination normal. GCS eye subscore is 4. GCS verbal subscore is 5. GCS motor subscore is 6. Cerebellar tests wnl. SKIN: Skin is warm and dry. She is not diaphoretic. PSYCH: She has a normal mood and affect. Behavior is normal. Judgment and thought content normal. Course Course 1547: The patient was evaluated in room B2. A complete history and physical exam was performed Cardiac monitoring: An order was placed for continuous cardiac monitoring. The monitor shows a rate of 110 with sinus rhythm interpreted by me Patient tachycardic and hypotensive. Sepsis protocols initiated. 1641: Patient's blood pressure improving with IV fluids. I-STAT shows creatinine of 2.3. Patient's CTs will be changed to without contrast. 1700: Patient's lactic acid 3.1. 2 L normal saline ordered for the patient which should cover the 30 cc/kg normal saline bolus based off the patient's ideal body weight. Patient's procalcitonin and white blood cell count are unremarkable. Will hold off on antibiotics at this time as it thought that the patient's symptoms could be secondary to a viral infection. 1905: Vital signs stable. Status post third cc per kilo normal saline bolus based off the patient's ideal body weight the patient's lactic acid improved to 1.5. Patient is positive for coronavirus OC43. Given the patient's positive viral swab, negative procalcitonin negative white blood cell count and patient's lactic acid improving will on antibiotics. It is thought that the patient's lactic acidemia secondary to being dehydrated from her diarrhea secondary to the coronavirus infection as opposed to a bacterial infection. [facility] Administered Medications Sodium Chloride (Nss) 1,000 mls @ 125 mls/hr IV .Q8H ZAIDA Stop: 11/14/24 03:44 Last Admin: 11/13/24 20:22 Dose: 125 mls/hr Documented By: ABEL Discontinued Medications Diphenhydramine HCl (Diphenhydramine 50 Mg/Ml Vial) 25 mg IV NOW STA Stop: 11/13/24 15:56 Last Admin: 11/13/24 16:04 Dose: 25 mg Documented By: ABEL Sodium Chloride (Nss) 1,000 mls @ 999 mls/hr IV .Q1H1M ZAIDA Stop: 11/13/24 17:00 Last Infusion: 11/13/24 17:42 Dose: Infused Documented By: Admin: 11/13/24 16:03 Dose: 999 mls/hr Documented By: ABEL Sodium Chloride (Nss) 1,000 mls @ 999 mls/hr IV .Q1H1M ONE Stop: 11/13/24 17:41 Last Infusion: 11/13/24 20:22 Dose: Infused Documented By: Admin: 11/13/24 17:42 Dose: 999 mls/hr Documented By: ABEL Potassium Chloride (K Tra / Wtr) 10 meq in 100 mls @ 100 mls/hr IV Q1H ZAIDA Stop: 11/13/24 22:44 Last Admin: 11/13/24 23:27 Dose: 100 mls/hr Documented By: Infusion: 11/13/24 23:27 Dose: Infused Documented By: Admin: 11/13/24 22:31 Dose: 100 mls/hr Documented By: Infusion: 11/13/24 22:24 Dose: Infused Documented By: Admin: 11/13/24 20:23 Dose: 100 mls/hr Documented By: ABEL Metoclopramide HCl (Metoclopramide Hcl Inj 5 Mg/Ml 2 Ml Vial) 5 mg IV ONE ONE Stop: 11/13/24 15:56 Last Admin: 11/13/24 16:04 Dose: 5 mg Documented By: ABEL Potassium Chloride (Potassium Chloride Crtab 20 Meq Tabcr) 40 meq PO NOW STA Stop: 11/13/24 19:39 Last Admin: 11/13/24 20:14 Dose: 40 meq Documented By: ABEL Critical Care Time Critical Care Time: Yes Total Critical Care Time: 36 I have personally spent greater than 36 minutes of critical care time in the direct management of this patient. This includes bedside care, interpretation of diagnostic studies, and testing, discussion with consultants, patient, and family members, and other required patient management activities. This 36 minutes is in excess of all separately billable procedures. Medical Decision Making Laboratory Data Attestation: I reviewed the patient's lab results. 11/13/24 15:29 11/13/24 15:29 Lab Results 11/13/24 11/13/24 11/13/24 Range/Units 15:29 16:29 16:32 WBC 8.34 (4.8-10.8) K/ul RBC 4.22 (4.20-5.40) M/uL Hgb 12.7 (12.0-16.0) g/dl POC Hgb (12.0-16.0) g/dl Hct 36.4 L (37.0-47.0) % POC Hct (37-47) % MCV 86.3 (80.0-100.0) fL MCH 30.1 (25.0-34.0) pg MCHC 34.9 (32.0-36.0) g/dL RDW Std Deviation 43.5 (36.4-46.3) fL RDW Coeff of Anthony 13.9 (11.5-14.5) % Plt Count 303 (130-400) K/uL MPV 9.8 (9.4-12.4) fL Immature Gran % (Auto) 0.5 % Neut % (Auto) 63.3 % Lymph % (Auto) 27.3 % [place] % (Auto) 7.8 % Eos % (Auto) 0.7 % Baso % (Auto) 0.4 % Neut # (Auto) 5.28 (1.40-6.50) K/uL Lymph # (Auto) 2.28 (1.20-3.40) K/uL [place] # (Auto) 0.65 H (0.11-0.59) K/uL Eos # (Auto) 0.06 (0.00-0.50) K/uL Baso # (Auto) 0.03 (0.00-0.20) K/uL Immature Gran # (Auto) 0.04 (0.01-0.20) K/uL PT 10.1 (9.0-12.0) Seconds INR 0.9 (0.9-1.1) APTT 21 (21-31) Seconds PTT Ratio 0.8 VBG pH 7.33 L (7.36-7.41) VBG pCO2 48 (38-50) mmHg VBG pO2 41 mmHg VBG HCO3 25 mmol/L VBG O2 Saturation 62.7 % VBG Base Excess -1.1 mEq/L POC Sodium (135-144) mmol/L Sodium 138 (136-145) mmol/L POC Potassium (3.3-5.0) mmol/L Potassium 2.9 L (3.5-5.1) mmol/L POC Chloride (101-112) mmol/L Chloride 100 (98-107) mmol/L Carbon Dioxide 24 (21-32) mmol/L POC Total CO2 (24-31) mmol/L Anion Gap 14 H (3-11) POC Anion Gap (16-25) mmol/L POC BUN (7-18) mg/dl BUN 30 H (6-23) mg/dl Creatinine 2.09 H (0.6-1.2) mg/dl POC Creatinine (0.6-1.3) mg/dl Est Cr Clr Drug Dosing 35.9 ml/min eGFR 26.63 BUN/Creatinine Ratio 14.4 (10-20) Glucose 145 H (70-99(Fasting)) mg/dl POC Glucose (other) (70-99) mg/dl Lactate 3.2 H* (0.4-2.0) mmol/L Calcium 9.9 (8.6-10.3) mg/dl POC Ioniz Calcium [place] (1.12-1.32) mmol/l Magnesium 2.1 (1.7-2.4) mg/dl Total Bilirubin 0.4 (0.2-1.0) mg/dl Direct Bilirubin 0.1 (0-0.2) mg/dl AST 15 (13-39) U/L ALT 15 (7-52) U/L Alkaline Phosphatase 61 (34-104) U/L Troponin I High Sens 5.2 (0-14) pg/ml Total Protein 6.9 (6.0-8.3) gm/dl Albumin 4.5 (3.4-5.0) gm/dl Procalcitonin 0.10 (0-0.5) ng/ml Urine Color Urine Appearance (Clear) Urine pH (4.5-7.5) Ur Specific [place] (1.000-1.030) Urine Protein (Negative) Urine Glucose (UA) (Negative) Urine Ketones (Negative) Urine Blood (Negative) Urine Nitrite (Negative) Urine Bilirubin (Negative) Urine Urobilinogen (Negative) Ur Leukocyte Esterase (Negative) Urine WBC (Auto) (0-5) /hpf Urine RBC (Auto) (0-2) /hpf U Hyaline Cast (Auto) (0-2) /lpf U Epithel Cells (Auto) (0-2) /hpf Urine Bacteria (Auto) (None Seen) Hyaline Casts (None Presnt) /lpf Granular Casts (None Prsent) /lpf Ur Random Creatinine mg/dl Ur Random Sodium mmol/L Adenovirus (PCR) Not Detected (NotDetected) B. pertussis DNA (PCR) Not Detected (NotDetected) B.parapertussis DNA PCR Not Detected (NotDetected) C. pneumoniae DNA (PCR) Not Detected (NotDetected) Coronavirus OC43 (PCR) DETECTED A (NotDetected) Coronavirus HKU1 (PCR) Not Detected (NotDetected) Coronavirus 229E (PCR) Not Detected (NotDetected) SARS-CoV-2 (PCR) Not Detected (NotDetected) Coronavirus NL63 (PCR) Not Detected (NotDetected) Human Metapneumovir PCR Not Detected (NotDetected) Influenza Type A (PCR) Not Detected (NotDetected) Influenza Type B (PCR) Not Detected (NotDetected) M. pneumoniae (PCR) Not Detected (NotDetected) Parainfluenza 1 (PCR) Not Detected (NotDetected) Parainfluenza 2 (PCR) Not Detected (NotDetected) Parainfluenza 3 (PCR) Not Detected (NotDetected) Parainfluenza 4 (PCR) Not Detected (NotDetected) RSV (PCR) Not Detected (NotDetected) Entero/Rhino (PCR) Not Detected (NotDetected) 11/13/24 11/13/24 11/13/24 Range/Units 16:35 18:43 18:50 WBC (4.8-10.8) K/ul RBC (4.20-5.40) M/uL Hgb (12.0-16.0) g/dl POC Hgb 12.2 (12.0-16.0) g/dl Hct (37.0-47.0) % POC Hct 36 L (37-47) % MCV (80.0-100.0) fL MCH (25.0-34.0) pg MCHC (32.0-36.0) g/dL RDW Std Deviation (36.4-46.3) fL RDW Coeff of Anthony (11.5-14.5) % Plt Count (130-400) K/uL MPV (9.4-12.4) fL Immature Gran % (Auto) % Neut % (Auto) % Lymph % (Auto) % [place] % (Auto) % Eos % (Auto) % Baso % (Auto) % Neut # (Auto) (1.40-6.50) K/uL Lymph # (Auto) (1.20-3.40) K/uL [place] # (Auto) (0.11-0.59) K/uL Eos # (Auto) (0.00-0.50) K/uL Baso # (Auto) (0.00-0.20) K/uL Immature Gran # (Auto) (0.01-0.20) K/uL PT (9.0-12.0) Seconds INR (0.9-1.1) APTT (21-31) Seconds PTT Ratio VBG pH (7.36-7.41) VBG pCO2 (38-50) mmHg VBG pO2 mmHg VBG HCO3 mmol/L VBG O2 Saturation % VBG Base Excess mEq/L POC Sodium 137 (135-144) mmol/L Sodium (136-145) mmol/L POC Potassium 3.5 (3.3-5.0) mmol/L Potassium (3.5-5.1) mmol/L POC Chloride 104 (101-112) mmol/L Chloride (98-107) mmol/L Carbon Dioxide (21-32) mmol/L POC Total CO2 21 L (24-31) mmol/L Anion Gap (3-11) POC Anion Gap 16.0 (16-25) mmol/L POC BUN 28 H (7-18) mg/dl BUN (6-23) mg/dl Creatinine (0.6-1.2) mg/dl POC Creatinine 2.3 H (0.6-1.3) mg/dl Est Cr Clr Drug Dosing ml/min eGFR BUN/Creatinine Ratio (10-20) Glucose (70-99(Fasting)) mg/dl POC Glucose (other) 130 H (70-99) mg/dl Lactate 1.5 (0.4-2.0) mmol/L Calcium (8.6-10.3) mg/dl POC Ioniz Calcium [place] 1.05 L (1.12-1.32) mmol/l Magnesium (1.7-2.4) mg/dl Total Bilirubin (0.2-1.0) mg/dl Direct Bilirubin (0-0.2) mg/dl AST (13-39) U/L ALT (7-52) U/L Alkaline Phosphatase (34-104) U/L Troponin I High Sens (0-14) pg/ml Total Protein (6.0-8.3) gm/dl Albumin (3.4-5.0) gm/dl Procalcitonin (0-0.5) ng/ml Urine Color Yellow Urine Appearance Clear (Clear) Urine pH 5.0 (4.5-7.5) Ur Specific [place] 1.016 (1.000-1.030) Urine Protein Trace H (Negative) Urine Glucose (UA) Negative (Negative) Urine Ketones Negative (Negative) Urine Blood Negative (Negative) Urine Nitrite Negative (Negative) Urine Bilirubin Negative (Negative) Urine Urobilinogen Negative (Negative) Ur Leukocyte Esterase Negative (Negative) Urine WBC (Auto) 0-5 (0-5) /hpf Urine RBC (Auto) 0-2 (0-2) /hpf U Hyaline Cast (Auto) >20 H (0-2) /lpf U Epithel Cells (Auto) 6-10 H (0-2) /hpf Urine Bacteria (Auto) 1+ H (None Seen) Hyaline Casts Present A (None Presnt) /lpf Granular Casts Present A (None Prsent) /lpf Ur Random Creatinine 109.2 mg/dl Ur Random Sodium 88 mmol/L Adenovirus (PCR) (NotDetected) B. pertussis DNA (PCR) (NotDetected) B.parapertussis DNA PCR (NotDetected) C. pneumoniae DNA (PCR) (NotDetected) Coronavirus OC43 (PCR) (NotDetected) Coronavirus HKU1 (PCR) (NotDetected) Coronavirus 229E (PCR) (NotDetected) SARS-CoV-2 (PCR) (NotDetected) Coronavirus NL63 (PCR) (NotDetected) Human Metapneumovir PCR (NotDetected) Influenza Type A (PCR) (NotDetected) Influenza Type B (PCR) (NotDetected) M. pneumoniae (PCR) (NotDetected) Parainfluenza 1 (PCR) (NotDetected) Parainfluenza 2 (PCR) (NotDetected) Parainfluenza 3 (PCR) (NotDetected) Parainfluenza 4 (PCR) (NotDetected) RSV (PCR) (NotDetected) Entero/Rhino (PCR) (NotDetected) Imaging Data Attestation: I personally reviewed and interpreted this imaging study as follows: My Impression: Chest x-ray negative. Airway clear. No pneumothorax. No consolidation. No cardiomegaly or cephalization.. No free air under the diaphragm. No fractures of the skeletal structures. Radiologist's Impression: Chest X-Ray 11/13/24 15:55 Clinical History: Sepsis Technique: A frontal view of the chest was obtained Comparison is made to the prior examination dated 01/28/2021 Findings: There are no confluent pulmonary infiltrates. The heart size is within normal limits. No pleural effusion or pneumothorax is seen. There is no definite pulmonary nodule. There are new bilateral shoulder replacements Impression: No active disease Electronically signed by Michael Cazares 11-13-2024 4:[address] 11/13/24 15:55 Clinical History: Headache Technique: Axial computed tomography images were obtained of the brain without intravenous contrast. Findings: There is cerebral atrophy, within expected limits for the patient's age. Areas of decreased attenuation are seen within the periventricular white matter, likely representing chronic small vessel ischemic disease. There is no definite sign of acute or old infarction. No intracranial hemorrhage is evident. No definite mass lesion is seen on this noncontrast examination. There is no midline shift or other form of herniation. No hydrocephalus is seen. No fracture is identified. The orbits and the visualized paranasal sinuses appear unremarkable. The mastoid air cells appear clear. Impression: 1. Cerebral atrophy and chronic small vessel ischemic disease 2. Otherwise unremarkable noncontrast CT of the brain Electronically signed by Michael Cazares 11-13-2024 5:35 PM Abdomen/Pelvis CT 11/13/24 16:41 Clinical History: Nausea and vomiting Technique: Axial computed tomography images were obtained of the abdomen and pelvis without intravenous contrast. Comparison is made to the chest CT dated 07/18/2023 Findings: The liver is overall of normal size, attenuation, and contour with no sign of cirrhosis or significant fatty infiltration. No definite liver mass lesion is seen on this noncontrast study. The gallbladder appears unremarkable. No bile duct dilatation is noted. The spleen is of normal size. No focal splenic lesion is evident. The pancreas appears normal with no sign of acute or chronic pancreatitis and no mass lesion noted. The pancreatic duct is of normal caliber. The adrenal glands appear unremarkable. No renal or proximal ureteral calculi are seen. There is no hydronephrosis or perinephric stranding. No definite renal mass lesion is identified. The aorta is of normal caliber. No abdominal adenopathy is seen. The stomach appears normal. There is no sign of small bowel obstruction. There is mild colonic diverticulosis without evidence of diverticulitis. No free intraperitoneal fluid or air is identified. There is no sign of appendicitis No definite distal ureteral or bladder calculi are seen. There are numerous foci of calcification within the pelvis, likely representing phleboliths. The bladder is decompressed. The iliac arteries are of normal caliber. No pelvic adenopathy is noted. The uterus has been removed The lungs bases appear clear. A left breast implant is again seen Lumbar degenerative disc disease is seen. There is bilateral hip osteoarthritis. No fracture is identified. No focal osseous lesion is seen Impression: Diverticulosis without evidence of diverticulitis Electronically signed by Michael Cazares 11-13-2024 5:40 PM ECG Data Attestation: I personally reviewed and interpreted this ECG as follows: Rate (beats per minute): 66 Rhythm: + normal sinus ECG Intervals/blocks: + First degree AV block and + Normal QT-c ECG ST segments: + Normal ST segments Additional Comments: [place] 206 QRS 74 QTc 446 [facility] Narrative 1547: The patient was evaluated in room B2. A complete history and physical exam was performed Cardiac monitoring: An order was placed for continuous cardiac monitoring. The monitor shows a rate of 110 with sinus rhythm interpreted by me Patient tachycardic and hypotensive. Sepsis protocols initiated. 1641: Patient's blood pressure improving with IV fluids. I-STAT shows creatinine of 2.3. Patient's CTs will be changed to without contrast. 1700: Patient's lactic acid 3.1. 2 L normal saline ordered for the patient which should cover the 30 cc/kg normal saline bolus based off the patient's ideal body weight. Patient's procalcitonin and white blood cell count are unremarkable. Will hold off on antibiotics at this time as it thought that the patient's symptoms could be secondary to a viral infection. 1905: Vital signs stable. Status post third cc per kilo normal saline bolus based off the patient's ideal body weight the patient's lactic acid improved to 1.5. Patient is positive for coronavirus OC43. Given the patient's positive viral swab, negative procalcitonin negative white blood cell count and patient's lactic acid improving will on antibiotics. It is thought that the patient's lactic acidemia secondary to being dehydrated from her diarrhea secondary to the coronavirus infection as opposed to a bacterial infection. [facility] Impression & Plan BEBA (acute kidney injury) Discharge Plan Visit Data Chief Complaint: Illness Stated Complaint: ILLNESS, SYNCOPE ED Provider: Aaron Jones Discharge Problem: BEBA (acute kidney injury) Patient Disposition: Admitted As Inpatient Discharge Instructions Interventions: ED Discharge Assessment Last Done: 11/13/24 21:26
[2024-11-14 01:38] LABS: BUN Creatinine Ratio 17.9 (10-20); Calcium 8.7 mg/dl (8.6-10.3); Creatinine Clr Calc Pharmacy 51.8 ml/min; Potassium 3.5 mmol/L (3.5-5.1)
[2024-11-14 04:22] VITALS: O2SAT 96
[2024-11-14] MEDS: SODIUM CHLORIDE 0.9% 1,000 ML IV SCH (05:03)
[2024-11-14 06:38] LABS: Basophils # (auto) 0.03 K/uL (0.00-0.20); Basophils % (auto) 0.5 %; Eosinophils # (auto) 0.06 K/uL (0.00-0.50); Eosinophils % (auto) 1.1 %; Hematocrit (blood only) 33.5 % (37.0-47.0); Hemoglobin 11.5 g/dl (12.0-16.0); Immature Granulocytes # (auto) 0.01 K/uL (0.01-0.20); Immature Granulocytes % (auto) 0.2 %; Lymphocytes # (auto) 1.88 K/uL (1.20-3.40); Lymphocytes % (auto) 33.2 %; Mean Corpuscular Hemoglobin 30.3 pg (25.0-34.0); Mean Corpuscular Hgb Conc 34.3 g/dL (32.0-36.0); Mean Corpuscular Volume 88.4 fL (80.0-100.0); Mean Platelet Volume 9.7 fL (9.4-12.4); Monocytes % (auto) 10.6 %; Neutrophils # (auto) 3.08 K/uL (1.40-6.50); Neutrophils % (auto) 54.4 %; Platelet Count 263 K/uL (130-400); RDW Standard Deviation 45.4 fL (36.4-46.3); Red Blood Count 3.79 M/uL (4.20-5.40); White Blood Count 5.66 K/ul (4.8-10.8)
[2024-11-14 07:04] LABS: BUN Creatinine Ratio 17.5 (10-20); Calcium 8.7 mg/dl (8.6-10.3); Potassium 3.8 mmol/L (3.5-5.1)
[2024-11-14] MEDS: TOPIRAMATE 50 MG TAB PO SCH (07:25)
[2024-11-14] MEDS: dilTIAZem HCL 120 MG CAPCR PO SCH (07:25)
[2024-11-14] MEDS: CARIPRAZINE HCL 1.5 MG CAP PO SCH (07:25)
[2024-11-14] MEDS: ESCITALOPRAM OXALATE 20 MG TAB PO SCH (07:25)
[2024-11-14] MEDS: ROSUVASTATIN CALCIUM 5 MG TAB PO SCH (07:26)
[2024-11-14 10:43] LABS: Adenovirus F 40/41 PCR Not Detected (NotDetected); Astrovirus PCR Not Detected (NotDetected); Campylobacter PCR Not Detected (NotDetected); Cryptosporidium PCR Not Detected (NotDetected); Cyclospora cayetanensis PCR Not Detected (NotDetected); Entamoeba histolytica PCR Not Detected (NotDetected); Enteroaggregative E.coli(EAEC) Not Detected (NotDetected); Enteropathogenic E.coli (EPEC) Not Detected (NotDetected); Enterotoxigenic E.coli (ETEC) Not Detected (NotDetected); Giardia lamblia PCR Not Detected (NotDetected); Norovirus GI/GII PCR Not Detected (NotDetected); Plesiomonas shigelloides PCR Not Detected (NotDetected); Rotavirus A PCR Not Detected (NotDetected); Salmonella PCR Not Detected (NotDetected); Sapovirus PCR Not Detected (NotDetected); Shiga-like Toxin E.coli (STEC) Not Detected (NotDetected); Shigella/Enteroinvasive E.coli Not Detected (NotDetected); Vibrio cholerae PCR Not Detected (NotDetected); Vibrio species PCR Not Detected (NotDetected); Yersinia enterocolitica PCR Not Detected (NotDetected)
--- NOTE | 2024-11-14 16:08 | XCELERA ---
[id number] [id number]
[2024-11-14 16:41] VITALS: RESP 12; TEMP 97.3
--- NOTE | 2024-11-14 16:51 | Discharge Summary ---
Discharge Summary Date of Service November 14, 2024 Principal Dx & Hospital Course #1 = Principal Diagnosis (1) Syncope: witnessed [facility]opal episode in [facility], 1 minute, no headstrike EKG showed NSR Lactate elevated 3.2 -> resolved after 2L NSS to 1.5 VBG mildly acidotic - 7.33/48/[address] head negative echo ordered IV fluids overnight - 2L NSS gentle resuscitation + promote oral hydration orthostatics in AM after fluids monitor on telemetry (2) Hypotension: as low as 88/55 in ED -> 111/64 after 2L NSS associated elevated lactate improved as above blood cultures sent hover low suspicion for infection holding HCTZ with BEBA and olmesartan continue diltiazem with holding precautions (3) Acute kidney injury: suspect secondary to dehydration with diarrhea and medication induced - on chronic naproxen and HCTZ Cr increased from 0.76 to 2.09 BUN elevated to 30 indicating pre-renal cause FENa = 1.2% = indeterminate BMP recheck at 1230 and with AM labs Hold nephrotoxic agents - NSAIDs and HCTZ promote oral hydration and IV fluid resuscitation with 2L NSS bolus in ED + 1L NSS gentle resus overnight (4) Hypokalemia: chronic 2/2 to HCTZ use holding HCTZ K+ 2.9 on admission 30 MeQ IV + 40 Meq PO ordered trend BMP Mg stable, 2.1 (5) Acute diarrhea: 4 episodes /16 Contributing to dehydration and symptoms above Stool cultures ordered (6) Coronavirus infection: coronavirus OC 43 only symptomatic with mild rhinorrhea CXR negative Tylenol as needed Isolation precautions Promote oral hydration (7) Asymptomatic bacteriuria: UA showing trace protein, 6-10 epithelial cells, 1+ bacteria, hyaline casts Asymptomatic Likely contaminant with epithelial cells Follow urine cultures Plan Patient is a 59-year-old female with a past medical history of hypertension, depression, asthma, vertigo, lumbar pain, and breast cancer s/p mastectomy in 2016. She presents due to a witnessed syncopal episode. In ED she was found to have an BEBA, hypokalemia, and coronavirus OC43. She is being admitted for syncopal workup including an echocardiogram and treatment for BEBA with IV fluids. Chronic stable diagnoses: Asthma - continue inhaler as needed Vertigo - continue meclizine as needed Chronic lumbar pain - holding naproxen, Tylenol as needed Breast cancer - s/p mastectomy 2016, stable Depression - continue cariprazine and escitalopram HLD - continue statin migraines - continue topiramate VTE ppx: SCDs - low risk Diet: regular Dispo: med/tele Admission HPI Per Admitting Provider Patient is a 59-year-old female with a past medical history of hypertension, depression, asthma, vertigo, lumbar pain, and breast cancer s/p mastectomy in 2016. She presents due to a witnessed syncopal episode. In ED she was found to have an BEBA, hypokalemia, and coronavirus OC43. She is being admitted for syncopal workup including an echocardiogram and treatment for BEBA with IV fluids. Patient seen at bedside. She stated that she was taking her father to [facility] today and had a syncopal episode while in the waiting room. This was witnessed by staff and lasted approximately 1 minute. Patient stated she felt dizzy prior to and it was coming. She denies chest pain, palpitations, dyspnea prior to the episode. She was sitting in a chair and did not hit her head. she stated after the episode she vomited twice, she received Zofran en route on EMS, Benadryl and Reglan in ED; she is feeling much better now. She stated she did have 2 large bowel movements this morning prior to picking up her father, at the hospital before transfer she had 2 additional episodes of diarrhea today. She endorses mild rhinorrhea for the past few days. Patient denies fever, chills, headache, sore throat, cough, sputum production, dyspnea, dyspnea on exertion, chest pain, abdominal pain, dysuria, hematuria. She also has chronic bilateral lower extremity edema which is not present on exam. She has had good p.o. intake, ate breakfast prior to episode. She does have a history of tobacco use, smokes 3 to 4 cigarettes/day since she was 15 years old. Does not have significant alcohol use history. Denies past history of DM, VTE, no recurrence of cancer. She denies cardiac history, no murmurs, arrhythmias, CAD. She does not use oxygen at baseline, no CPAP/BiPAP. She did take her home medications this morning. She only takes meclizine as needed for vertigo, has not taken in a while. She wishes to be full code at this time. Discharge Plan Discharge Items Patient Disposition: Home - Self-Care Reason For Visit: SYNCOPE Discharge Diagnosis: 1. syncope (passing out spell) - due to low blood pressure 2. hypokalemia (low potassium) - resolved 3. acute kidney injury (rise in creatinine/kidney function level) - resolved 4. non-COVID coronavirus infection 5. left ventricular hypertrophy on echocardiogram (thickening of the heart muscle) - due to long-standing high blood pressure Activity: As commented below Activity Comment: take it easy for the next few days then gradually resume normal activity Driving/Machine Use: Resume 1 day after discharge Non-emergency contact: Primary Care Provider Call non-emergency contact if: you have any medication questions and your symptoms worsen Follow-up/Referrals: Chelsy Mccray MD [Primary Care Provider] - 11/28/24 1:00 pm (within 1 week- Placed on waitlist for any sooner openings ) Diet: Heart Healthy Addtl Attending Provider Instructions: Mrs Whitmore, You were hospitalized after having had an episode of syncope. Syncope, also known as "passing out" or "fainting," has many causes (see handout). In your case I believe the diarrhea from the coronavirus infection as well as being on multiple blood pressure medicines dropped your blood pressure low which then led to your episode. Your low potassium, high creatinine, etc all improved while here. Your potassium level is now normal. Your creatinine level (kidney function level) was 2, and today it is improved to 1.2. You usually run about 0.7 so it is almost back to normal. Echocardiogram showed normal heart function and normal functioning valves. There was nothing on the echo that would have caused the event. You do have "LVH" (see handout on left ventricular hypertrophy) which is likely from long-standing high blood pressure. Telemetry monitoring was normal. Chest x-ray and head CT were normal as well. Recommendations - 1. Please drink some extra fluids each day for the next 3 days. 2. HOLD your naprosyn until you see your family doctor. 3. DO NOT TAKE any drjd-mpy-jjaqebp motrin, ibuprofen, aleve, or aspirin at this time. IT IS OK to take tylenol as needed for aches/pains/fever. 4. I have prescribed olmesartan by itself. The hydrochlorothiazide diuretic portion of the previous combination olmesartan-hydrochlorothiazide has been stopped. You can start the olmesartan on Sunday am, 11/16/24. 5. Please have your family doctor repeat your creatinine level via blood work in about 1 week. 6. Ok to take mucinex xmry-njs-xfnefsb for cough/congestion. Ok to take mlwq-hnj-tknfzja claritin or trell or zyrtec for nasal congestion. The coronavirus infection will run its course over a total of about 7-10 days. Good handwashing +/- masking recommended during that time period especially when around other people. Follow-up - see separate section Return to [facility] if - * you have recurrent dizziness or lightheadedness * you have shortness of breath * you have chest pains * you have severe diarrhea (more than 3 liquid stools in 24 hours) * you have vomiting that isn't responding to medication * any other concerns Please continue to feel better! -Dr Wolff Pending Studies at Discharge: Yes Studies:: blood and urine cultures but thus far negative Stand-Alone Forms: My [facility], Smoking Cessation Medications and DC Order Prescriptions: New olmesartan 40 mg tablet 40 mg PO DAILY Qty: 30 2RF ondansetron 4 mg tablet,disintegrating 4 mg PO Q6H PRN (Reason: nausea and vomiting) Qty: 10 0RF Continued escitalopram oxalate 20 mg tablet 20 mg PO DAILY Patient Comments: QAM albuterol sulfate [Ventolin HFA] 90 mcg/actuation HFA aerosol inhaler 2 puff INH Q6H PRN (Reason: shortness of breath or wheezing) Qty: 8.5 2RF meclizine 25 mg tablet 25 mg PO TID PRN (Reason: dizziness) Qty: 90 0RF rosuvastatin 5 mg tablet 5 mg PO DAILY 30 Days Qty: 30 2RF topiramate [Topamax] 50 mg tablet 50 mg PO DAILY 30 Days Qty: 30 2RF Vraylar 1.5 mg capsule 1.5 mg PO Q OTHER DAY Qty: 15 2RF albuterol sulfate 2.5 mg /3 mL (0.083 %) solution for nebulization 2.5 mg inhalation Q6H PRN (Reason: shortness of breath or wheezing) Qty: 75 2RF diltiazem HCl 360 mg capsule,extended release 24 hr 360 mg PO DAILY 90 Days Qty: 90 3RF multivitamin Tablet 1 tab PO QAM Held naproxen sodium [Aleve] 220 mg Capsule 220 mg PO QAM Hold Instructions: hold until you see your family doctor Discontinued olmesartan-hydrochlorothiazide 40-25 mg tablet 1 tab PO DAILY Qty: 90 2RF Discharge Orders: Discharge Order (Routine); Ordered 11/14/24 Ordered By: Froilan Bush/Other Patient Handouts: LVH, What Is Syncope, Causes of Syncope Admission Data Admit Date/Time: 11/13/24 19:45 Attending Provider: Froilan Wolff Admit Provider: Ignacio Nixon Primary Care Provider: Chelsy Mccray Other Providers: Ignacio Nixon Hospital Stay Data Consultations 11/13/24 19:03 ED Decision to Admit Stat Diagnostic Imagining Performed 11/13/24 15:55 CT head/brain wo con Stat 11/13/24 16:41 CT abd pelvis wo con Stat Pending Results Patient Have Any Pending Studies at Discharge: Yes Discharge Instructions Given to Patient (Per Discharging Provider) Mrs Whitmore, You were hospitalized after having had an episode of syncope. Syncope, also known as "passing out" or "fainting," has many causes (see handout). In your case I believe the diarrhea from the coronavirus infection as well as being on multiple blood pressure medicines dropped your blood pressure low which then led to your episode. Your low potassium, high creatinine, etc all improved while here. Your potassium level is now normal. Your creatinine level (kidney function level) was 2, and today it is improved to 1.2. You usually run about 0.7 so it is almost back to normal. Echocardiogram showed normal heart function and normal functioning valves. There was nothing on the echo that would have caused the event. You do have "LVH" (see handout on left ventricular hypertrophy) which is likely from long-standing high blood pressure. Telemetry monitoring was normal. Chest x-ray and head CT were normal as well. Recommendations - 1. Please drink some extra fluids each day for the next 3 days. 2. HOLD your naprosyn until you see your family doctor. 3. DO NOT TAKE any rujq-gqj-tgmipra motrin, ibuprofen, aleve, or aspirin at this time. IT IS OK to take tylenol as needed for aches/pains/fever. 4. I have prescribed olmesartan by itself. The hydrochlorothiazide diuretic portion of the previous combination olmesartan-hydrochlorothiazide has been stopped. You can start the olmesartan on Sunday am, 11/16/24. 5. Please have your family doctor repeat your creatinine level via blood work in about 1 week. 6. Ok to take mucinex yrcp-fgq-kzfxdea for cough/congestion. Ok to take oysg-euy-xhjjlor claritin or trell or zyrtec for nasal congestion. The coronavirus infection will run its course over a total of about 7-10 days. Good handwashing +/- masking recommended during that time period especially when around other people. Follow-up - see separate section Return to [facility] if - * you have recurrent dizziness or lightheadedness * you have shortness of breath * you have chest pains * you have severe diarrhea (more than 3 liquid stools in 24 hours) * you have vomiting that isn't responding to medication * any other concerns Please continue to feel better! -Dr Wolff Coding Diagnoses Syncope R55 Hypotension I95.9 Acute kidney injury N17.9 Hypokalemia E87.6 Acute diarrhea R19.7 Coronavirus infection B34.2 Asymptomatic bacteriuria R82.71
[2024-11-14 17:11] VITALS: BP 133/88; PULSE 79
== END 2024-11-14 17:42 | disposition home or self-care (01) ==
LOC: 2N 15:02 → ED 15:02 → SUATTDRO 19:45 → 2N 21:26

== ENCOUNTER 2025-07-22 05:21 | Observation (INO) ==
--- NOTE | 2025-05-07 11:01 | PAT Medication Instructions ---
Medication Instructions Date of Service May 07, 2025 Home Medications Medication Instructions Recorded albuterol sulfate 2.5 mg/3 mL 2.5 mg (3 mL) inhalation Q6H PRN 09/11/ (0.083 %) solution for nebulization shortness of breath or wheezing #75 mL cariprazine 1.5 mg capsule 1.5 mg PO Q OTHER DAY #15 caps 11/05/24 (Vraylar) albuterol sulfate 90 mcg/actuation 2 puff inhalation Q6H PRN 12/16/24 aerosol inhaler (Ventolin HFA) shortness of breath or wheezing #8.5 grams rosuvastatin 5 mg tablet 5 mg PO DAILY 30 days #30 tabs 12/23/24 meclizine 25 mg tablet 25 mg PO TID PRN dizziness #20 tabs 04/18/25 diltiazem HCl 240 mg capsule,24 240 mg PO QAM #90 caps 04/23/25 hr,extended release olmesartan 40 mg tablet 40 mg PO DAILY #90 tabs 04/23/25 potassium chloride 20 mEq 20 meq PO BID #180 tabs 04/23/25 tablet,extended release spironolactone 25 mg tablet 12.5 mg (1/2 x 25 mg) PO DAILY #30 05/05/25 tabs albuterol sulfate 2.5 mg/3 mL (0.083 %) solution for nebulization 2.5 mg (3 mL) inhalation Q6H PRN multivitamin 1 tab PO QAM naproxen sodium 220 mg capsule (Aleve) 220 mg PO QAM cariprazine 1.5 mg capsule (Vraylar) 1.5 mg PO Q OTHER DAY albuterol sulfate 90 mcg/actuation aerosol inhaler (Ventolin HFA) 2 puff inhalation Q6H PRN rosuvastatin 5 mg tablet 5 mg PO DAILY meclizine 25 mg tablet 25 mg PO TID PRN escitalopram oxalate 5 mg tablet 5 mg PO QAM diltiazem HCl 240 mg capsule,24 hr,extended release 240 mg PO QAM olmesartan 40 mg tablet 40 mg PO DAILY potassium chloride 20 mEq tablet,extended release 20 meq PO BID spironolactone 25 mg tablet 12.5 mg (1/2 x 25 mg) PO DAILY Continue as directed cariprazine 1.5 mg capsule (Vraylar) 1.5 mg PO Q OTHER DAY rosuvastatin 5 mg tablet 5 mg PO DAILY ASK your surgeon for instructions naproxen sodium 220 mg capsule (Aleve) 220 mg PO QAM DO NOT take the morning of surgery multivitamin 1 tab PO QAM olmesartan 40 mg tablet 40 mg PO DAILY potassium chloride 20 mEq tablet,extended release 20 meq PO BID spironolactone 25 mg tablet 12.5 mg (1/2 x 25 mg) PO DAILY Take morning of surgery With a small sip of water, OTHERWISE NOTHING TO EAT OR DRINK AFTER MIDNIGHT: albuterol sulfate 2.5 mg/3 mL (0.083 %) solution for nebulization 2.5 mg (3 mL) inhalation Q6H PRN(if needed) albuterol sulfate 90 mcg/actuation aerosol inhaler (Ventolin HFA) 2 puff inhalation Q6H PRN(use if needed; please bring with you to hospital day of surgery if possible) meclizine 25 mg tablet 25 mg PO TID PRN(if needed) escitalopram oxalate 5 mg tablet 5 mg PO QAM diltiazem HCl 240 mg capsule,24 hr,extended release 240 mg PO QAM Take evening before surgery albuterol sulfate 2.5 mg/3 mL (0.083 %) solution for nebulization 2.5 mg (3 mL) inhalation Q6H PRN(if needed) albuterol sulfate 90 mcg/actuation aerosol inhaler (Ventolin HFA) 2 puff inhalation Q6H PRN(if needed) meclizine 25 mg tablet 25 mg PO TID PRN(if needed) potassium chloride 20 mEq tablet,extended release 20 meq PO BID Other Notes If you have any questions please call us at [phone] or [phone] or [phone] or [phone]
--- NOTE | 2025-05-07 11:23 | Anesthesiology Consultation ---
Date of Service May 07, 2025 Assessment & Plan (1) Encounter for pre-operative examination: Plan - awaiting results of cortisol, renin, renin activity, aldosterone, aldosterone/renin ratio levels, ambulatory property assessment monitor. - Case discussed in detail with Dr. Vasquez who advised that surgery will pend completion of HTN and PCP clinics testing ordered at most recent visits. If WNL, patient can proceed; if abnormal, will need clearances from HTN/PCP clinic. Surgeon's office made aware, message left requesting return call for patient. - Hypertension clinic visit 05/04/25 [place]: "...Hypertension...two documented syncopal episodes that required ER evaluation. Both attributed to volume depletion...We decided to proceed with low dose spironolactone with close monitoring of renal function- Start spironolactone 12.5mg daily. Repeat RFP 3 weeks after initiated- If she does not respond well or develops BEBA will transition to carvedilol- Obtain serum renin, if elevated will follow up with renal artery duplex due to her hx of smoking and HLD she does has slight risk for renal artery stenosis. Although her CT of her abd is reassuring- Obtain plasma aldosterone due to her hx of hypertension and hypokalemia to rule of hyperaldosteronism- Follow up in 3 weeks prior to her hip replacement. Will need to closely monitor her renal function panel while taking ibuprofen post surgery..." - PCP office visit 04/23/25 [place]: "...syncope. hypokalemia...BMP. A1c. lipid profile. magnesium. hypertension clinic referral. holter [facility] cardiology..." - ER [facility]: "...had been seated outside approximately 2 hours on top of a cooler and felt well and she said the next thing she knew she began to feel warm and dizzy and according to bystanders then passed out falling off the cooler. She states she was drinking water but also had 1-1/2 beers. Bystanders reported that she was unconscious for 45 seconds to 1 minute. No seizure-like activity noted or reported...when she began to wake up she felt very nauseated and vomited several times..had a headache and was bleeding from her face...denies any neck or back pain, denies any extremity pain or injury at this time...has no chest pain, palpitations, shortness of breath, abdominal pain...over the last 2 weeks she was in [place] with her daughter and granddaughter for testing at [facility]...noticed increased bowel movements while the re which she thought was related to change in diet and possibly stress...denies any melena hematochezia, no diarrhea...she also noticed increased lower extremity edema...has intermittently had leg swelling in the past however it would easily go away by the next morning...normal nonfocal neuroexam...CTs reassuring with exception of a nasal bone fracture...No ectopy or dysrhythmia noted on telemetry...was given oral potassium repletion and states she has previously been told she has hypokalemia and is supposed to take oral potassium repletion but does not. Patient given options for additional observation and/or inpatient evaluation here versus discharge with strict return precautions and close follow-up..." - PONV: has done well with scop patch in the past, denies adverse effects. To assigned anesthesiologist ultimate determination am DOS. - Outpatient joint assessment: Patient is currently scheduled for inpatient pathway. If re-evaluated and patient/surgeon requests outpatient pathway, patient is not advised candidate for outpatient joint program. Chart Review Chart Review: Pending: Refer to Additional Notes / Consult section and Patient seen in Pre Admission Testing Teaching & Discussion Pre-Anesthesia Teaching/Discussion Notes: Instructed NPO after midnight before surgery, except medications with 15 cc of water. Medication instructions provided according to the PAT guidelines. History Surgery Operation Date: 05/26/25 12:30 Proposed Procedures p Right Total Hip Arthroplasty - Omar Ramirez MD Operation Date: 06/02/25 08:50 Proposed Procedures p Right Total Hip Arthroplasty - Omar Ramirez MD Height/Weight Height: 5 ft 5 in Weight: 109.3 kg Allergies Allergy/AdvReac Type Severity Reaction Status Date / Time ENMANUEL Inhibitors AdvReac Intermediate Cough Verified 05/07/25 10:49 bupropion [From Wellbutrin] AdvReac Intermediate Dizziness Verified 05/07/25 10:49 phentermine AdvReac Intermediate Dizziness Verified 05/07/25 10:49 simvastatin AdvReac Intermediate myalgias Verified 05/07/25 10:49 Medications Home Medications Medication Instructions Recorded Confirmed Last Taken albuterol sulfate 2.5 mg/3 mL 2.5 mg (3 mL) inhalation Q6H PRN 09/11/20 05/07/25 Unknown (0.083 %) solution for nebulization shortness of breath or wheezing #75 mL multivitamin 1 tab PO QAM 01/04/21 05/07/25 01/23/22 08:00 naproxen sodium 220 mg capsule 220 mg PO QAM 12/26/21 05/07/25 Unknown (Aleve) cariprazine 1.5 mg capsule 1.5 mg PO Q OTHER DAY #15 caps 11/05/24 05/07/25 Unknown (Vraylar) albuterol sulfate 90 mcg/actuation 2 puff inhalation Q6H PRN 12/16/24 05/07/25 Unknown aerosol inhaler (Ventolin HFA) shortness of breath or wheezing #8.5 grams rosuvastatin 5 mg tablet 5 mg PO DAILY 30 days #30 tabs 12/23/24 05/07/25 Unknown meclizine 25 mg tablet 25 mg PO TID PRN dizziness #20 tabs 04/18/25 05/07/25 Unknown escitalopram oxalate 5 mg tablet 5 mg PO QAM 04/21/25 05/07/25 Unknown diltiazem HCl 240 mg capsule,24 240 mg PO QAM #90 caps 04/23/25 05/07/25 Unknown hr,extended release olmesartan 40 mg tablet 40 mg PO DAILY #90 tabs 04/23/25 05/07/25 Unknown potassium chloride 20 mEq 20 meq PO BID #180 tabs 04/23/25 05/07/25 Unknown tablet,extended release spironolactone 25 mg tablet 12.5 mg (1/2 x 25 mg) PO DAILY #30 05/05/25 05/07/25 Unknown tabs Past Medical History Medical History (Updated 05/07/25 @ 12:12 by Nini Cervantes PA-C) Anxiety Arthritis Asthma prn inhaler/neb; last used several months ago BPPV (benign paroxysmal positional vertigo) hx- intermittent-stable per pt Chronic obstructive pulmonary disease albuterol inhaler/neb PRN, more with colder weather Chronic radicular lumbar pain Depression Difficult intravenous access GERD (gastroesophageal reflux disease) rare with spicy foods HLD (hyperlipidemia) HTN (hypertension) controlled, stable per pt Hx of breast cancer (2015) s/p L mastectomy with reconstruction, no chemo or XRT (LEFT ARM RESTRICTION) Hx of bronchitis 02/2025, treated w/ abx symptoms resolved Hypokalemia hx Limb alert care status left arm LVH (left ventricular hypertrophy) moderate concentric Mild sleep apnea no device Osteoarthritis Sensorineural hearing loss (SNHL) of both ears Syncope 03/2025-denies recurrence-currently wearing holter monitor Patient denies h/o stroke, seizures, heart attack, heart failure, DM, blood clots/DVTs or blood transfusions. Exercise / Class Metabolic Activity III < 4 Walking/Shop/Light housework (ambulates with cane, denies chest discomfort or shortness of breath with usual activities) Past Family History Family History Sister Breast cancer Lung cancer Aunt Breast cancer Mother Diabetes Hypertension Kidney disease Stroke Father Kidney disease Coronary heart disease Hypertension Heart disease Brother Hypertension Other No family history of adverse response to anesthesia Denies family history of Ovarian cancer Prostate cancer Myocardial infarction Colorectal cancer Past Surgical History Surgical History (Updated 05/07/25 @ 12:06 by Nini Cervantes PA-C) H/O breast biopsy History of cataract surgery RT/LEFT History of colonoscopy History of hysterectomy History of left shoulder replacement 02/22/2021: Grade 2 view, MAC#3, ETT#7.5 + PNB. No postop issues per anesthesia progress note. History of right shoulder replacement (12/2021) [facility] History of tooth extraction History of total knee arthroplasty RT/LEFT Nausea and vomiting after administration of anesthetic agent requests scop patch as Rx in past Status post left mastectomy 2015 (with implant-based breast reconstruction) Past Anesthesia History No Hx of Anesthesia Complications and No Family Hx of Anesthesia Complications History of PONV History of PONV (scop patch) and Hx of Motion Sickness Social History Smoking Status: Current every day smoker tobacco type: cigarettes Smoking cigarettes per day: 1 pack per week- advised Do You Dip or Chew Tobacco: No Hx Alcohol Use: Yes Alcohol type: beer, wine and hard liquor alcohol intake frequency: holidays/special occasions only Hx Substance Use: No substance use type: does not use Review of Systems Patient denies chest pain, shortness of breath, dyspnea on exertion, fever, chills, cough, wheezing, or palpitations. Physical Exam Vital Signs Vitals BP 144/84 P 76 TEMP 97.9 SP02 95% on RA RESP 28 Physical Patient resting comfortably in chair in no acute distress, alert and oriented, responding appropriately throughout visit Full cervical extension range of motion without pain TMD 3 finger breadths Mallampati Score 3 Dentition: intact, denies chipped or loose teeth, caps/crowns, implants or bridges Lungs: normal respiratory effort. Good air movement, clear throughout to auscultation, no adventitious breath sounds Cardiac: regular rate and rhythm, no murmurs noted Carotid arteries: negative bruit bilat Lab Results Anesthesia Preop Results Results Anesthesia Widget: WBC 6.68 K/ul (4.8-10.8) 05/07/25 Hgb 13.5 g/dl (12.0-16.0) 05/07/25 Hct 39.5 % (37.0-47.0) 05/07/25 Plt 338 K/uL (130-400) 05/07/25 Na 140 mmol/L (136-145) 05/07/25 K 3.8 mmol/L (3.5-5.1) 05/07/25 Cl 104 mmol/L (98-107) 05/07/25 CO2 28 mmol/L (21-32) 05/07/25 BUN 17 mg/dl (6-23) 05/07/25 Creat 0.62 mg/dl (0.6-1.2) 05/07/25 Glucose Level 82 mg/dl (70-99(Fasting)) 05/07/25 PT 10.2 Seconds (9.0-12.0) 05/07/25 PTT 27 Seconds (21-31) 05/07/25 INR 0.9 (0.9-1.1) 05/07/25 TSH 1.530 uIu/ml (0.300-4.500) 05/06/25 HA1c 6.1 % (4.5-5.6) H 04/23/25 Urine Color Yellow 05/06/25 Urine Appearance Clear (Clear) 05/06/25 Urine pH 6.0 (4.5-7.5) 05/06/25 Urine Specific [place] 1.012 (1.000-1.030) 05/06/25 Urine Protein Negative (Negative) 05/06/25 Urine Glucose (UA) Negative (Negative) 05/06/25 Urine Ketones Negative (Negative) 05/06/25 Urine Blood Negative (Negative) 05/06/25 Urine Nitrite Negative (Negative) 05/06/25 Urine Bilirubin Negative (Negative) 05/06/25 Urine Urobilinogen Negative (Negative) 05/06/25 Urine Leukocyte Esterase Negative (Negative) 05/06/25 Blood Type B Positive 05/07/25 Antibody Screen NEGATIVE 05/07/25 Testing Electrocardiogram Date: 04/18/25 NSR, rate 83 bpm Left axis deviation No significant change vs 11/13/24 EKG Chest X-Ray Date: 04/18/25 *1 view* Normal chest radiograph Echocardiogram Date: 11/14/24 EF 60-65% No regional wall motion abnormalities Moderate cLVH Mildly sclerotic aortic valve without significant stenosis Normal estimated RVSP Type 1 diastolic dysfunction Cervical Spine Date: 04/18/25 Significantly limited assessment from C4-C7 with degenerative changes present. No gross acute abnormality. Consider repeat if there is continued clinical concern. Other Testing Face CT 04/18/25 1. There is a, nondisplaced acute fracture along the edge of the nasal bridge. 2. There is a small right frontal scalp hematoma. 3. There is apical erosion of the right posterior maxillary molar. Head CT 04/18/25 1. There is a small right frontal scalp hematoma. 2. Cerebral atrophy. No acute changes.
--- NOTE | 2025-07-06 13:04 | PAT Medication Instructions ---
Medication Instructions Date of Service July 06, 2025 Home Medications Medication Instructions Recorded albuterol sulfate 2.5 mg/3 mL 2.5 mg (3 mL) inhalation Q6H PRN 09/11/20 (0.083 %) solution for nebulization shortness of breath or wheezing #75 mL albuterol sulfate 90 mcg/actuation 2 puff inhalation Q6H PRN 12/16/24 aerosol inhaler (Ventolin HFA) shortness of breath or wheezing #8.5 grams meclizine 25 mg tablet 25 mg PO TID PRN dizziness #20 tabs 04/18/25 diltiazem HCl 240 mg capsule,24 240 mg PO QAM #90 caps 04/23/25 hr,extended release potassium chloride 20 mEq 20 meq PO BID #180 tabs 04/23/25 tablet,extended release cariprazine 1.5 mg capsule 1.5 mg PO Q OTHER DAY #15 caps 05/15/25 (Vraylar) tramadol 50 mg tablet 50 mg PO BID PRN pain 15 days #30 07/02/25 tabs albuterol sulfate 2.5 mg/3 mL (0.083 %) solution for nebulization 2.5 mg (3 mL) inhalation Q6H PRN shortness of breath or wheezing multivitamin 1 tab PO QAM naproxen sodium 220 mg capsule (Aleve) 220 mg PO QAM albuterol sulfate 90 mcg/actuation aerosol inhaler (Ventolin HFA) 2 puff inhalation Q6H PRN shortness of breath or wheezing meclizine 25 mg tablet 25 mg PO TID PRN dizziness diltiazem HCl 240 mg capsule,24 hr,extended release 240 mg PO QAM potassium chloride 20 mEq tablet,extended release 20 meq PO BID cariprazine 1.5 mg capsule (Vraylar) 1.5 mg PO Q OTHER DAY tramadol 50 mg tablet 50 mg PO BID PRN pain escitalopram oxalate 20 mg tablet 20 mg PO QAM olmesartan 40 mg tablet 40 mg PO QAM rosuvastatin 10 mg tablet 10 mg PO QAM spironolactone 25 mg tablet 12.5 mg PO QAM Continue as directed cariprazine 1.5 mg capsule (Vraylar) 1.5 mg PO Q OTHER DAY ASK your surgeon for instructions naproxen sodium 220 mg capsule (Aleve) 220 mg PO QAM DO NOT take the morning of surgery multivitamin 1 tab PO QAM potassium chloride 20 mEq tablet,extended release 20 meq PO BID olmesartan 40 mg tablet 40 mg PO QAM spironolactone 25 mg tablet 12.5 mg PO QAM Take morning of surgery With a small sip of water, OTHERWISE NOTHING TO EAT OR DRINK AFTER MIDNIGHT: albuterol sulfate 2.5 mg/3 mL (0.083 %) solution for nebulization 2.5 mg (3 mL) inhalation Q6H PRN shortness of breath or wheezing (if needed) albuterol sulfate 90 mcg/actuation aerosol inhaler (Ventolin HFA) 2 puff inhalation Q6H PRN shortness of breath or wheezing (use if needed; please bring rescue inhaler with you to hospital day of surgery if possible) meclizine 25 mg tablet 25 mg PO TID PRN dizziness (if needed) diltiazem HCl 240 mg capsule,24 hr,extended release 240 mg PO QAM tramadol 50 mg tablet 50 mg PO BID PRN pain (if needed) escitalopram oxalate 20 mg tablet 20 mg PO QAM rosuvastatin 10 mg tablet 10 mg PO QAM Take evening before surgery albuterol sulfate 2.5 mg/3 mL (0.083 %) solution for nebulization 2.5 mg (3 mL) inhalation Q6H PRN shortness of breath or wheezing (if needed) albuterol sulfate 90 mcg/actuation aerosol inhaler (Ventolin HFA) 2 puff inhalation Q6H PRN shortness of breath or wheezing (if needed) meclizine 25 mg tablet 25 mg PO TID PRN dizziness (if needed) potassium chloride 20 mEq tablet,extended release 20 meq PO BID tramadol 50 mg tablet 50 mg PO BID PRN pain (if needed) Other Notes If you have any questions please call us at [phone] or [phone] or [phone] or [phone]
--- NOTE | 2025-07-20 07:40 | History & Physical Report ---
Date of Service July 20, 2025 Assessment & Plan (1) Arthritis of right hip: 60-year-old female status post bilateral knee replacements with persistent right leg pain. She got advanced right hip arthritis and I think a lot of this leg pain is likely emanating from her hip arthritis. She failed conservative measures. She is ready proceed with hip replacement. Plan: Jim taken to the operating do a right total hip replacement. The risks and benefits procedure explained. Informed consent was obtained. Ago plan stay in the hospital overnight. We was asking for DVT prophylaxis. (2) History of total knee arthroplasty: (3) History of right shoulder replacement: (4) HLD (hyperlipidemia): (5) Asthma: (6) Hypertension: History of Present Illness Chief Complaint: . Persistent right hip and leg pain. Primary Care Provider: Chelsy Mccray MD . The patient is a 60-year-old female who now presents for surgical treatment of her right hip. I initially saw her back in December with a major complaint of knee and leg pain after total knee replacement by Dr. Dupont. On workup it revealed advanced hip arthritis. She is continue to be bothered by right leg thigh and hip pain. Described to gotten worse over time. Her knee replacements look good. Is limiting her activities. Medicines have not helped much. She is ready to proceed with hip replacement. Allergies Allergy/AdvReac Type Severity Reaction Status Date / Time ENMANUEL Inhibitors AdvReac Intermediate Cough Verified 07/16/25 13:56 bupropion [From Wellbutrin] AdvReac Intermediate Dizziness Verified 07/16/25 13:56 phentermine AdvReac Intermediate Dizziness Verified 07/16/25 13:56 simvastatin AdvReac Intermediate myalgias Verified 07/16/25 13:56 Home Medications Medication Instructions Recorded Confirmed Type albuterol sulfate 2.5 mg/3 mL 2.5 mg (3 mL) inhalation Q6H PRN 09/11/20 07/16/25 Rx (0.083 %) solution for nebulization shortness of breath or wheezing #75 mL multivitamin 1 tab PO QAM 01/04/21 07/16/25 History naproxen sodium 220 mg capsule 220 mg PO QAM 12/26/21 07/16/25 History (Aleve) albuterol sulfate 90 mcg/actuation 2 puff inhalation Q6H PRN 12/16/24 07/16/25 Rx aerosol inhaler (Ventolin HFA) shortness of breath or wheezing #8.5 grams meclizine 25 mg tablet 25 mg PO TID PRN dizziness #20 tabs 04/18/25 07/16/25 Rx diltiazem HCl 240 mg capsule,24 240 mg PO QAM #90 caps 04/23/25 07/16/25 Rx hr,extended release potassium chloride 20 mEq 20 meq PO BID #180 tabs 04/23/25 07/16/25 Rx tablet,extended release cariprazine 1.5 mg capsule 1.5 mg PO Q OTHER DAY #15 caps 05/15/25 07/16/25 Rx (Vraylar) escitalopram oxalate 20 mg tablet 20 mg PO QAM 07/06/25 07/16/25 History olmesartan 40 mg tablet 40 mg PO QAM 07/06/25 07/16/25 History rosuvastatin 10 mg tablet 10 mg PO QAM 07/06/25 07/16/25 History spironolactone 25 mg tablet 12.5 mg PO QAM 07/06/25 07/16/25 History Past Med/Surg History Problem List Arthritis of right hip LVH (left ventricular hypertrophy) Hypersomnia Lumbar radicular pain Cigarette smoker HLD (hyperlipidemia) Asthma BMI 40.0-44.9, adult BPPV (benign paroxysmal positional vertigo) Sensorineural hearing loss (SNHL) of both ears Mild sleep apnea Trochanteric bursitis of right hip Depression Chronic low back pain Sacroiliitis Thumb tendonitis Anxiety Hypertension (Chronic) DJD (degenerative joint disease) of knee (Acute 12/09/13) Medical History Limb alert care status left arm Difficult intravenous access Sensorineural hearing loss (SNHL) of both ears Syncope 03/2025-denies recurrence-currently wearing holter monitor HTN (hypertension) controlled, stable per pt Anxiety Depression BPPV (benign paroxysmal positional vertigo) hx- intermittent-stable per pt Asthma controlled, stable per pt; last rescue inhaler use 8 months ago HLD (hyperlipidemia) Chronic radicular lumbar pain LVH (left ventricular hypertrophy) moderate concentric Arthritis Mild sleep apnea no device GERD (gastroesophageal reflux disease) rare with spicy foods Hx of breast cancer (2015) s/p L mastectomy with reconstruction, no chemo or XRT (LEFT ARM RESTRICTION) Osteoarthritis Chronic obstructive pulmonary disease albuterol inhaler/neb PRN, more with colder weather Surgical History History of right shoulder replacement (12/2021) [facility] History of cataract surgery RT/LEFT History of left shoulder replacement 02/22/2021: Grade 2 view, MAC#3, ETT#7.5 + PNB. No postop issues per anesthesia progress note. Nausea and vomiting after administration of anesthetic agent requests scop patch as Rx in past H/O breast biopsy History of colonoscopy History of tooth extraction History of hysterectomy History of total knee arthroplasty RT/LEFT Status post left mastectomy 2015 (with implant-based breast reconstruction) Family History Sister Breast cancer Lung cancer Aunt Breast cancer Mother Diabetes Hypertension Kidney disease Stroke Father Kidney disease Coronary heart disease Hypertension Heart disease Brother Hypertension Other No family history of adverse response to anesthesia Denies family history of Ovarian cancer Prostate cancer Myocardial infarction Colorectal cancer Social History Smoking Status: Current every day smoker Tobacco Type: Cigarettes Age Started Using Tobacco: 15; packs per day: 0.5; Cigarettes Per Day: 1/2 ppd > advised npo; Second Hand Exposure: No; Do You Dip or Chew Tobacco: No; Hx Alcohol Use: Yes Alcohol type: beer, wine and hard liquor Alcohol Intake Frequency: Monthly or Less Hx Substance Use: No Preferred Language: Turkish Communication Ability: Effective Hearing Ability: Normal Nursing Clerk Required: No Beliefs That Will Affect Care: None marital status: Current Living Situation: Spouse current occupational status: retired 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 How many Children do You have: 3 Feels Safe at Home: Yes Childhood Exposure to Second-Hand Smoke: No Diet: regular caffeine: Yes (3 16 oz bottles of diet coke daily ) Dental Care, Regularly: Yes Physical Activity Frequency: Does not Exercise Physical Activity Frequency Comment: limited by pain Seatbelt Use: always Sunscreen Use: Yes Assistive Devices: Cane and Glasses Review of Systems All systems reviewed & are unremarkable except as noted in HPI & below. Physical Exam . Physical examination reveals a pleasant middle-aged female but looks in pretty good health. Examination of the right hip and leg reveal patient walks with a slight bit of a limp. She is about half a centimeter shorter on the right leg compared to the left. She has a very stiff and limited to hip motion. This does recreate pain. Negative straight leg raise. She is neurologically intact. Examination of the right knee reveals well-healed incision. No swelling. Range of motion is 0-1 20. No instability. Constitutional WD/WN, vitals as above Neck trachea midline, no thyromegaly Respiratory normal respiratory effort, lungs clear to auscultation Cardiovascular RRR, no murmur, no edema Gastrointestinal (Abdomen) normal bowel sounds, soft, nontender, no hepatosplenomegaly Results & Data Results & Data Laboratory Results . Diagnostic Findings . Weightbearing films of the hip reveal advanced right hip arthritis. She got complete loss of her superior joint space. She has cystic changes on both sides of the joint with pretty significant osteophytes around the acetabulum. X-ray examination of the right knee reveals bilateral knee replacements. Components look me acceptable position. No signs of problems. PG Care Time/CCT Total # of Minutes Spent Total Time Spent with Patient: Total time spent is greater than 50% in coordination of care (as documented) at patient's floor/unit and/or counseling patient: Coding Level of Care Code None Diagnoses Arthritis of right hip M16.11 History of total knee arthroplasty Z96.659 History of right shoulder replacement Z96.611 HLD (hyperlipidemia) E78.5 Asthma J45.909 Hypertension I10
[2025-07-22] MEDS: FAMOTIDINE 20 MG TAB PO SCH (05:43)
[2025-07-22] MEDS: METOCLOPRAMIDE HCL 10 MG TABLET PO SCH (05:43)
[2025-07-22] MEDS: dexAMETHasone**PF** 10 MG/ML VIAL IV SCH (05:43)
[2025-07-22] MEDS: ACETAMINOPHEN 500 MG TAB PO SCH ×2 (05:43→12:43)
[2025-07-22] MEDS: CeleBREX 200 MG CAP PO SCH (05:44)
[2025-07-22] MEDS: LR 60ML/HR IV SCH (05:44)
[2025-07-22] MEDS: LR 15ML/HR IV SCH (06:00)
[2025-07-22] MEDS ORDERED: ROPIVACAINE 0.5% 5 MG/ML 30 ML VIAL ONE (06:30)
[2025-07-22] MEDS ORDERED: MIDAZOLAM HCL 1 MG/ML 2ML VIAL ONE (06:36)
[2025-07-22] MEDS: TRANEXAMIC ACID 1,000 MG **IV Pre-op IV SCH (06:41)
[2025-07-22] MEDS ORDERED: ATROPINE SULFATE 0.1 MG/ML 10ML SYR IV PRN (06:43)
[2025-07-22] MEDS ORDERED: HYDROmorphone INJ 1 MG/ML SYRINGE IV PRN (06:43)
[2025-07-22] MEDS ORDERED: ONDANSETRON INJ 2 MG/ML 2 ML VIAL IV PRN ×2 (06:43→10:53)
[2025-07-22] MEDS ORDERED: PROPOFOL IV EMULSION 10 MG/ML 100 ML VIAL IV ONE ×2 (07:17→08:10)
[2025-07-22] MEDS ORDERED: KETAMINE HCL 10MG/ML SYR ONE (07:21)
[2025-07-22] MEDS: BUPIVACAINE/EPINEPHRINE 0.5% MPF 1:200,000 30 ML VIAL ONE (07:40)
[2025-07-22] MEDS ORDERED: ePHEDrine sulfate 50 MG/5 ML SYR ONE (08:03)
[2025-07-22] MEDS ORDERED: PHENYLEPHRINE 100MCG/ML 5ML SYR ONE (08:08)
--- NOTE | 2025-07-22 09:22 | Operative Report ---
[facility] Post Operative Report Pre & Post Diagnosis Operation Date: 07/22/25 07:00 Pre-Op Diagnosis: Right Hip Osteoarthritis Post-Op Diagnosis: Right Hip Osteoarthritis I identified the patient and participated in the time-out.: Yes Procedure Operation Date: 07/22/25 07:00 Actual Procedures p Right Total Hip Arthroplasty, Uncemented(Right) - Omar Ramirez MD Surgeon Omar Ramirez MD Debt And Budget Counselor Sony Hutchison PA-C Estimated Blood Loss 200 Findings Consistent with Post-Op Diagnosis Specimens Right femoral head sent for pathology. Anesthesia Type Spinal MAC Complications none Disposition Accompanied Patient To Recovery: No Indications Patient is a 60-year-old female who has had a history of gradually progressive increasing right leg pain and discomfort. She did have a previous knee replacement on the right side but continues to have problems with this leg. On workup and evaluation x-rays show advanced hip arthritis. She failed conservative measures. She elected proceed with right total hip arthroplasty. Description of Procedure Operative implants consist of: 1 Biomet G7 size 50 mm acetabular shell. 2. 6.5 cancellous acetabular screws 1 of 35 mm in length and 1 of 30 mm length. 3. Maynard hole director it project. 4. 36 x 50 mm highly cross-linked polyethylene liner. 5. DePuy Karaya size 9 short neck 125 degree angle femoral stem. 6. +5/36 mm ceramic articular ball. The patient was taken to the op room, identified, placed on the operating table in the supine position. All contractors were appropriately padded. IV antibiotics arrived by anesthesia team. A spinal anesthetic had been implemented holding area. Rutherford catheter was placed in sterile fashion. The patient was then placed in the left lateral decubitus position. An axillary roll was placed. A stool Birkett position was used for positioning. The right hip and leg were then prepped and draped in usual sterile fashion. A posterolateral approach to the right hip was then performed through a curvilinear incision centered over the greater trochanter. Sharp dissection was carried through subcutaneous tissue down to level the IT band gluteal fascia. The IT band gluteal fascia incised longitudinally in line with skin incision. The greater troches bursa was excised. The piriformis and external rotators along with the posterior joint capsule were then released from the posterior aspect of the hip as a single layer. The hip was internally rotated and dislocated. A femoral neck osteotomy cut was made with a Final Cut about 10 mm above the lesser trochanter. Femoral head was removed and sent for pathology. The femur was retracted anteriorly. Attention drawn the acetabulum. The acetabular labrum was excised. Pulvinal fat was excised. Sequential reaming the acetabular was then performed again with size 43 and progressing up to 49. We reamed a little bit with a 50 reamer and then placed a 50 mm Biomet acetabular cup in about 4 degrees lateral opening and 20 degrees of anteversion. We worked hard to get in with this in the proper position due to her large soft tissue envelope. It was fixed with two 6.5 screws. A large anterior osteophyte was removed. A trial liner was placed. Attention drawn the femur. The proximal femur was entered with cookie-cutter followed by canal finder. I then broached beginning with a size 8. We broached up to a 9. She had extremely good quality cancellous bone. We trialed the hip in the standard neck seemed a bit too tight and too long. We elected to place the short neck implant. It was fully stable. Leg lengths appeared equal. We elected to place these implants. All trial implants were removed. An apex hole director it project was placed. Highly cross-linked polyethylene liner was placed. A size 925 degree angle short neck KLA femoral stem was impacted in position. +5/36 mm ceramic articular ball was placed. Hip was located and once again found to be stable. Attention jointer closing. Wound was irrigated coconuts pulsatile lavage solution. I did inject locally with 60 cc of half percent Marcaine with epinephrine. The posterior capsule and external rotators were then repaired through drill holes in the posterior trochanter with #2 Tycron suture. The IT band gluteal fascia were then closed with a #1 PDS suture in a running fashion for the subcutaneous tissue was then closed with 3 layers with the 2 deep layers with #2 Vicryl suture and subcutaneous tissues with 2-0 Dexon suture in a buried interrupted fashion. Skin was closed skin kael. A Prevena VAC dressing was applied due to the large soft tissue envelope. The patient was then transferred to the recovery room in stable condition. Patient tolerated procedure well and no complications. Sony Hutchison, my physician assistant women's basketball coach, was present for the entire procedure. His assistance was required for proper patient positioning, prepping and draping, surgical exposure, retraction, performed the technical details of the operation, placement implants, closure of the incision site, and placement of the postoperative sterile bandage. I attest to the content of the Intraoperative Record and any orders documented therein. Any exceptions are noted below.
--- NOTE | 2025-07-22 09:39 | Anesthesiology Progress Note ---
Date of Service July 22, 2025 Anesthesia Post Procedure Vital Signs Vital Signs: Temp Pulse Pulse Resp BP Pulse Ox O2 Del Method 07/22/25 09:25 67 12 130/71 99 Oxymask 07/22/25 09:15 67 13 108/78 94 Oxymask 07/22/25 09:06 36.0 C L 73 13 116/76 94 Oxymask 07/22/25 05:33 36.9 C 79 20 156/88 H 96 Room Air O2 Flow Rate 07/22/25 09:25 6 07/22/25 09:15 6 07/22/25 09:06 6 07/22/25 05:33 Transfer of Care Handoff Completed per policy Notes Mental Status: alert / awake / arousable and participated in evaluation Patient Amnestic to Procedure: Yes Nausea / Vomiting: adequately controlled Pain: adequately controlled Airway Patency, RR, SpO2: stable & adequate BP & HR: stable & adequate Hydration State: stable & adequate Anesthetic Complications: no major complications apparent and Pt Satisfied with anesthetic care
--- NOTE | 2025-07-22 09:40 | XRay Report ---
XR hip 1V RT w pelvis CLINICAL HISTORY: IN PACU - Post Surgical COMPARISON: 05/07/2025 FINDINGS: Right hip prosthesis shows no hardware complication. There is expected soft tissue gas. Sk in kael are present. IMPRESSION: Unremarkable postoperative exam. ACT 112: Negative or not required by law. Electronically signed by: Abebe Stark M.D. 07/22/2025 9:39 AM
[2025-07-22] MEDS ORDERED: MECLIZINE HCL 25 MG TAB PO PRN (10:53)
[2025-07-22] MEDS ORDERED: ALBUTEROL 0.083% NEBU SOLN 3 ML VIAL INH PRN (10:53)
[2025-07-22] MEDS ORDERED: ALBUTEROL HFA 8 GM INHALER INH PRN (10:53)
[2025-07-22] MEDS ORDERED: diphenhydrAMINE Capsule 25 MG CAP PO PRN (10:53)
[2025-07-22] MEDS ORDERED: NALOXONE HCL 0.4 MG/1 ML VIAL/CARP IV PRN (10:53)
[2025-07-22] MEDS ORDERED: ALUMINUM/MAGNESIUM SUSP 30 ML UDC PO PRN (10:53)
[2025-07-22] MEDS ORDERED: MAGNESIUM HYDROXIDE SUSP 30 ML UDC PO PRN (10:53)
[2025-07-22] MEDS ORDERED: METOCLOPRAMIDE HCL INJ 5 MG/ML 2 ML VIAL IV PRN (10:53)
[2025-07-22] MEDS ORDERED: HYDROmorphone INJ 0.5 MG/0.5 ML SYR IV PRN (10:53)
[2025-07-22] MEDS: SODIUM CHLORIDE 0.9% 1,000 ML IV SCH (11:56)
[2025-07-22] MEDS: KETOROLAC 30 MG/ML VIAL IV SCH (12:10)
[2025-07-22] MEDS: CARIPRAZINE HCL 1.5 MG CAP PO SCH (12:44)
[2025-07-22] MEDS ORDERED: ACETAMINOPHEN 500 MG TAB PO SCH (14:00)
[2025-07-22] MEDS: TRANEXAMIC ACID / 0.7% NACL 1,000 MG/100 ML BAG IV SCH (16:21)
[2025-07-22] MEDS: ASCORBIC ACID 500 MG TAB PO SCH (16:21)
[2025-07-22] MEDS: ASPIRIN 81 MG ECTAB PO SCH (20:58)
[2025-07-22] MEDS: POTASSIUM CHLORIDE CRTAB 20 MEQ TABCR PO SCH (20:59)
[2025-07-22] MEDS: DOCUSATE SODIUM 100 MG CAP PO SCH (20:59)
[2025-07-22] MEDS ORDERED: SENNA 8.6 MG TAB PO SCH (21:00)
[2025-07-22] MEDS: SENNA 8.6 MG TAB PO SCH (21:19)
[2025-07-22 23:12] VITALS: O2SAT 95
[2025-07-23] MEDS: ESCITALOPRAM OXALATE 20 MG TAB PO SCH (07:16)
[2025-07-23] MEDS: dexAMETHasone 10 MG in SYRINGE 0 ML IV SCH (07:16)
[2025-07-23] MEDS: ROSUVASTATIN CALCIUM 10 MG TAB PO SCH (07:16)
[2025-07-23] MEDS: LOSARTAN POTASSIUM 50 MG TAB PO SCH (07:16)
[2025-07-23] MEDS: MULTIVITAMIN TAB PO SCH (07:17)
[2025-07-23] MEDS: SPIRONOLACTONE 12.5 MG TAB PO SCH (07:18)
[2025-07-23 08:11] VITALS: BP 132/75; PULSE 83; RESP 18; TEMP 98.2
--- NOTE | 2025-07-23 08:32 | Orthopedic Progress Note ---
Date of Service July 23, 2025 Assessment & Plan (1) S/P total right hip arthroplasty: * Continue Current Treatment * Disposition: home * Daily treatment: Physical Therapy/ Occupational Therapy per protocol * Weight bearing status: WBAT, hip precautions * Continue to monitor for ABLA * Pain control * DVT prophylaxis, ASA * Office/hospital f/u 2 weeks for progress check and staple/suture removal * Plan for discharge today pending PT/OT clearance Subjective .Active Problems: S/p right BELÉN POD 1 60 y/o female s/p right BELÉN. Doing well overall, pain managed and improved function. Denies fever/chills, chest pain/SOB, nausea/vomiting. Otherwise no complaints. Review of Systems All systems reviewed & are unremarkable except as noted in HPI & below. Physical Exam . * General: Alert and oriented, no acute distress * Constitutional: well-developed, well-nourished. * Respiratory: Normal respiratory effort, no distress * Gastrointestinal: No tenderness to palpation, no rigidity or guarding. * Skin: No rash or lesion. * Neurologic: Grossly normal * Musculoskeletal: Right hip surgical dressing CDI, Prevena functioning, not removed for exam. Otherwise no obvious deformity or overlying skin changes. Diffuse TTP proximal thigh and hip region. Otherwise no specific tenderness of distal thigh, lower leg, foot/ankle. AROM hip flexion intact. AROM foot/ankle intact. Sensation intact plantar/dorsal foot. Brisk capillary refill. Results & Data Results & Data Laboratory Results . Diagnostic Findings . Hip/Pelvis X-Ray 07/22/25 09:17 XR hip 1V RT w pelvis CLINICAL HISTORY: IN PACU - Post Surgical COMPARISON: 05/07/2025 FINDINGS: Right hip prosthesis shows no hardware complication. There is expected soft tissue gas. Skin kael are present. IMPRESSION: Unremarkable postoperative exam. ACT 112: Negative or not required by law. Electronically signed by: Abebe Stark M.D. 07/22/2025 9:39 AM PG Care Time/CCT Total # of Minutes Spent Total Time Spent with Patient: Total time spent is greater than 50% in coordination of care (as documented) at patient's floor/unit and/or counseling patient: Coding Level of Care Code 68560 Post Operative Follow-Up Diagnoses S/P total right hip arthroplasty Z96.641
[2025-07-23 08:54] LABS: Anion Gap 9.0 (3-11); Blood Urea Nitrogen 18.0 mg/dl (6-23); Calcium 9.2 mg/dl (8.6-10.3); Carbon Dioxide 26.0 mmol/L (21-32); Chloride 104.0 mmol/L (98-107); Creatinine Clr Calc Pharmacy 103.6 ml/min; Glucose 154.0 mg/dl (70-99(Fasting)); Potassium 3.9 mmol/L (3.5-5.1); Sodium 139.0 mmol/L (136-145)
[2025-07-23 08:55] LABS: Hematocrit (blood only) 34.0 % (37.0-47.0); Hemoglobin 11.7 g/dl (12.0-16.0); Mean Corpuscular Hemoglobin 30.8 pg (25.0-34.0); Mean Corpuscular Volume 89.5 fL (80.0-100.0); Platelet Count 253 K/uL (130-400); RDW Standard Deviation 45.4 fL (36.4-46.3); Red Blood Count 3.80 M/uL (4.20-5.40); White Blood Count 14.36 K/ul (4.8-10.8)
[2025-07-23] MEDS ORDERED: NON-FORMULARY MEDICATION (Multivitamin Tablet) PO SCH (09:00)
[2025-07-23 09:30] LABS: Immature Granulocytes # (auto) 0.06 K/uL (0.01-0.20); Immature Granulocytes % (auto) 0.4 %; RBC Morphology Unremarkable
== END 2025-07-23 10:57 | disposition home health service (06) ==
LOC: PACUINP 05:21 → ASU 05:21 → 3E 11:46